=== PATIENT | female | born 1955 | race Caucasian/White ===

== ENCOUNTER 2021-11-17 12:45 | Outpatient (CLI) | payer MEDICARE, BC, SELFPAY ==
--- NOTE | 2021-11-17 13:00 | CRLHL7_ITS ---
For Patients: As a result of the Century Cures Act, medical imaging exams and procedure reports are released immediately into your electronic medical record. You may view this report before your referring provider. If you have questions, please contact your health care provider. BILATERAL SCREENING MAMMOGRAM WITH COMPUTER-AIDED DETECTION AND TOMOSYNTHESIS TECHNIQUE: CC and MLO views were obtained. These mammographic images have been obtained using full-field digital technique. These mammographic images were interpreted with the benefit of computer-aided detection. Breast Tomosynthesis was used in this interpretation. COMPARISON FILM: 09/19/20, 09/18/19, 07/29/18. FINDINGS: There are scattered areas of fibroglandular density IMPRESSION: There is no radiographic evidence for malignancy. ASSESSMENT: BI-RADS Category 1: Negative RECOMMENDATION: Routine screening mammogram in 1 year. A lay language report of this examination will be provided to the patient. Scooter Mcnair M.D. Diagnostic Radiologist [email or web address] ELSIE/Dictated by: Scooter Mcnair MD @ 11/21/2021 10:51:00 AM (Electronically Signed)
== END 2021-11-17 12:46 | disposition home or self-care (01) ==
LOC: MAMMO 12:51
PROVIDERS: PCP Family Medicine; Visit Provider Family Medicine
DX: Z12.31 Encounter for screening mammogram for malignant neoplasm of breast (principal)
CPT/HCPCS: 77063; 77067

== ENCOUNTER 2022-04-17 15:50 | Outpatient (CLI) | payer OTHER, SELFPAY ==
--- NOTE | 2022-04-17 16:00 | CRLHL7_ITS ---
For Patients: As a result of the Century Cures Act, medical imaging exams and procedure reports are released immediately into your electronic medical record. You may view this report before your referring provider. If you have questions, please contact your health care provider. INDICATION: Right calf swelling after travel. COMPARISON: None. TECHNIQUE: A compression venous ultrasound exam was performed of the right lower extremity using diaz-scale imaging, color Doppler and spectral Doppler analysis. FINDINGS: Sonographic imaging of the right lower extremity demonstrates normal compressibility and color Doppler venous blood flow within the common femoral vein, deep femoral vein, and the proximal greater saphenous vein. Within the thigh, the femoral vein is patent and compressible. At a lower level, the popliteal, peroneal, and posterior tibial veins also show normal compressibility and color Doppler venous blood flow. Limited imaging of the contralateral groin demonstrates a normal spectral waveform and color Doppler venous blood flow within the left common femoral vein. IMPRESSION: Negative for acute DVT in the right lower extremity. Dictated by Melanie Grewal MD @ 04/17/2022 8:20:44 PM (Electronically Signed)
== END 2022-04-17 15:51 | disposition home or self-care (01) ==
PROVIDERS: PCP Family Medicine; Visit Provider Family Medicine
DX: M79.89 Other specified soft tissue disorders (principal)
CPT/HCPCS: 93971

== ENCOUNTER 2022-10-02 13:05 | Outpatient (CLI) | payer OTHER, SELFPAY | END 2022-10-02 13:06 | disposition home or self-care (01) | LOC: NFLDREF 13:07 | PROVIDERS: PCP Family Medicine; Visit Provider Internal Medicine | DX: E55.9 Vitamin D deficiency, unspecified (principal); E78.5 Hyperlipidemia, unspecified; I10 Essential (primary) hypertension; E03.9 Hypothyroidism, unspecified; E66.9 Obesity, unspecified; E11.9 Type 2 diabetes mellitus without complications; E04.1 Nontoxic single thyroid nodule; R60.9 Edema, unspecified | CPT/HCPCS: 80048; 87086 ==

== ENCOUNTER 2022-11-06 13:40 | Outpatient (CLI) | payer OTHER, SELFPAY | END 2022-11-06 13:41 | disposition home or self-care (01) | LOC: NFLDREF 13:42 | PROVIDERS: PCP Family Medicine; Visit Provider Family Medicine | DX: I10 Essential (primary) hypertension (principal); R60.9 Edema, unspecified; E78.5 Hyperlipidemia, unspecified | CPT/HCPCS: 80048 ==

== ENCOUNTER 2022-12-05 07:36 | Outpatient (CLI) | payer OTHER, SELFPAY | END 2022-12-05 07:37 | disposition home or self-care (01) | LOC: NFLDREF 12-07 11:50 | PROVIDERS: PCP Family Medicine; Referring Provider Family Medicine; Visit Provider Family Medicine | DX: E55.9 Vitamin D deficiency, unspecified (principal) | CPT/HCPCS: 82306 ==

== ENCOUNTER 2022-12-10 07:45 | Outpatient (CLI) | payer OTHER, SELFPAY ==
--- NOTE | 2022-12-10 08:15 | CRLHL7_ITS ---
For Patients: As a result of the Cures Act, medical imaging exams and procedure reports are released immediately into your electronic medical record. You may view this report before your referring provider. If you have questions, please contact your health care provider. BILATERAL SCREENING MAMMOGRAM WITH COMPUTER-AIDED DETECTION AND TOMOSYNTHESIS TECHNIQUE: CC and MLO views were obtained. These mammographic images have been obtained using full-field digital technique. These mammographic images were interpreted with the benefit of computer-aided detection. Breast tomosynthesis was used in this interpretation. COMPARISON FILM: 11/17/21, 09/19/20, 07/07/20. FINDINGS: There are scattered areas of fibroglandular density. IMPRESSION: There is no radiographic evidence for malignancy. ASSESSMENT: BI-RADS Category 1: Negative RECOMMENDATION: Routine screening mammogram in 1 year. A lay language report of this examination will be provided to the patient. SCOOTER BUCHANAN M.D. Diagnostic Radiologist [email or web address] NINA/m[place] Transcribed: 12/10/2022, 2:[address]/Dictated by: Scooter Buchanan MD @ 12/10/2022 10:10:00 AM (Electronically Signed)
== END 2022-12-10 07:46 | disposition home or self-care (01) ==
LOC: MAMMO 07:45
PROVIDERS: PCP Family Medicine; Visit Provider Family Medicine
DX: Z12.31 Encounter for screening mammogram for malignant neoplasm of breast (principal)
CPT/HCPCS: 77063; 77067

== ENCOUNTER 2023-06-10 08:15 | Outpatient (RCR) | payer MEDICARE, OTHER, SELFPAY ==
--- NOTE | 2022-12-25 17:55 | PT.OPEX ---
PT [place] Outpatient Eval PT [facility] Outpatient Eval Start: 12/24/22 13:19 Freq: Status: Active Protocol: Document 12/25/22 12:59 MLS (Rec: 12/25/22 17:53 MLS [id number]) E-signed By Jocelyne Daley DPT Physical Therapy Outpatient Evaluation Insurance Information Recert Due Date 03/24/23 Insurance Name Medicare B Insurance Information/Comments [employer] Medical Diagnosis M76.61 M76.62 Achilles tendonitis of both lower extremities Treating Diagnosis Achilles tendonitis, right worse than left Referring MD Yanick Escudero MD Subjective Subjective Patient is a 67 year old female who presents to physical therapy with signs and symptoms consistent with achilles tendonitis in both feet, worse on right foot. She has had problems for a couple of years. She states that it originally started after a holiday where she had been very busy and making several trips up and down her stairs. According to the patient, about two years ago she had a procedure on the left side where they scraped off the calcium. She states that at the time, it really helped to decrease her pain. She reports recently that she saw a mortgage or loan underwriter who prescribed a steroid for her. Unfortunately, she got severe swelling in both ankles from the medicine. She was also on a cruise at the time. She reports that she did have xrays recently, and they did not show any calcium buildup at this time. She reports that she uses the pool 3x/week at [address] [place] [address], and that does not aggravate her ankles. She states that aggravating factors include: walking, moving around home, and cleaning. She states that alleviating factors include: Sitting and not moving or sitting in her recliner with her feet up. Significant past medical history includes diabetes, sarcodosis (will see rehabilitation center manager again soon) controlled not on any meds. She does not have any complaints of numbness and tingling into her feet. she does have some right heel pain at times. She does have stairs in her home to go into the basement. Patient would like to achieve less pain so she can walk through her physical therapy sessions. Pain Comments Today: 6-7/10 on a 0-10 pain scale with 10 = extreme pain At its worst: 9/10 At its best: 1-2/10 Current Work Status Retired Occupation work 2 mornings a week at [address] [place] [address] Preferred Name Melanie Precautions Weight Bearing Status Full Weight Bearing Objective Other/Pertinent Objective FOOT ALIGNMENT/GAIT Antalgic gait pattern secondary to pain SWELLING Severe swelling noted to bilateral ankles, right slightly more than left today Right center medial malleolus to lateral malleolus 11.5 inches, left side 11.25 inches around ANKLE ROM PF: R 30 L 30 DF: R 20 L 20 INversion: R 15 L 15 EVersion: R 10 L 10 LE MMT Hip flexion: R 5/5 L 5/5 Hip Extension: R 5/5 L 5/5 Hip abduction: R 5/5 L 5/5 knee extension: R 5/5 L 5/5 Knee Flexion: R 5/5 L 5/5 Dorsiflexion/heel walk: R 5/5 L 5/5 Plantarflexion/toe walk:R 5/5 L 5/5 severe pain INV: R 5/5 L 5/5 KEON: R 5/5 L 5/5 Great Toe Extension: R 5/5 L 5 /5 JOINT MOBILITY/PALPATION Severe tenderness noted to bilateral achilles tendons, gastroc and soleus muscles OTHER: SLS (single leg stance): 5 seconds, no increase in pain TX: Access Code: [email or web address] URL: [email or web address] Date: 12/25/2022 Prepared by: Jocelyne Daley Exercises - Seated Ankle Alphabet - 1 x daily - 7 x weekly - 3 sets - 10 reps - Seated Ankle Circles - 1 x daily - 7 x weekly - 3 sets - 10 reps - Supine Ankle Pumps - 1 x daily - 7 x weekly - 3 sets - 10 reps Functional Test Performed & Score 48/80 A score increase of 6 points shows a significant improvement in lower extremity function. Assessment Assessment/Impression Pt is a 67 year old female who presents with concerns of bilateral achilles tendonitis, worseo n the right. Signs and symptoms likely indicating / consistent with severe swelling and difficulty walking. Patient also has notable objective findings including limited ROM, low LEFS score and tenderness to palpation also likely contributing to the problem. Patient is a good candidate for skilled therapy to target deficits described above. Skilled PT intervention is necessary for use of therapeutic exercise manual therapy, neuromuscular re- education, gait training, and therapeutic activity. Functional impairments include difficulty with: walking, cleaning and doing ADLs . See appropriate sections of PT eval for complete list of goals and POC. D/C plan and criteria is for pt to achieve the goals as listed below or until max rehab potential is met. Pt was agreeable with plan of care and goals established Plan of Care Rehabilitation Potential Good Physical Therapy Goals STG: Patient is able to sleep without waking more than one time due to pain in a 6-8 hour time frame. Pt will demonstrate independence in performance of home exercise program with the use of video and/or handouts in order to optimize functional mobility and reduce risk for re-injury. Patient will report pain levels <2/10 with all activities in order to improve functional mobility at home, work and during functional leisure activities LTG: Patient will be able to walk up to one mile without pain. Patient will be able to drive for 60 minutes with no greater than 2/10 pain in order to travel comfortably. Pt will exhibit 9 pt improvement in LEFS Outcome measure to demonstrate functional improvement and progress towards goals. Pt will be able to ascend/ descend 1 flight of stairs in order to perform ADLs pain free. Coordination/Communication With Referral Source Treatment Plan/Direct Interventions Gait Training,Manual Therapy, Neuromuscular Re-ed, Therapeutic Activities, Therapeutic Exercises Patient Will Be Discharged From Therapy Independently Progressing Evaluation Billing Untimed Code Treatment Minutes 30 Complexity Low Certification Information Physician Comment/Change : Physician NPI Number #
== END 2023-06-12 09:20 | disposition home or self-care (01) ==
PROVIDERS: PCP Family Medicine; Visit Provider Family Medicine
DX: M76.61 Achilles tendinitis, right leg (principal); M76.62 Achilles tendinitis, left leg; Z51.89 Encounter for other specified aftercare
CPT/HCPCS: 97035; 97110; 97140; 97161

== ENCOUNTER 2023-06-18 06:42 | Outpatient (CLI) | payer MEDICARE, SELFPAY ==
[2023-06-18 07:14] VITALS: BP 160/79; PULSE 82; RESP 16; TEMP 36.7; O2SAT 93
== END 2023-06-18 08:06 | disposition home or self-care (01) ==
PROVIDERS: PCP Family Medicine; Visit Provider Family Medicine
DX: M76.61 Achilles tendinitis, right leg (principal); M67.88 Other specified disorders of synovium and tendon, other site
CPT/HCPCS: 27605; 76942; J0665

== ENCOUNTER 2023-07-31 08:57 | Outpatient (CLI) | payer MEDICARE, SELFPAY ==
--- OUTSIDE RECORDS SUMMARY | 2023-08-01 07:23 | XMS_ITS | Clinical Summary ---
Author Name Unknown Organization [facility] Address [address] [place] [address] Care Team Providers Care Riveter Portable Machine Name Role Phone Needs Pcp, Assignment Primary Care Provider [phone] Source Comments You are receiving this document as you are listed as the primary care provider,follow-up provider, or the patient has been referred to you for consultation.This is in compliance with the Medicare and[facility] E[facility] Incentive Program,which states Providers who transition their patient to another setting of careor provider of care or refers their patient to another provider of care shouldprovide summary care record for each transition of care or referral. [employer] Allergies Active Allergy Reactions Criticality Noted Date Comments Erythromycin Nausea And Vomiting,Gastrointestinal,Nausea 07/28/2006 Medications Medication Sig Dispensed Refills Start Date End Date Status lancets (ACCU-CHEK FASTCLIX)Indications :Controlled type 1 diabetes mellitus with diabetic neuropathy (HRC) Use 1 Each to test five times a day. 500 Each 2 07/05/2020 Active ACCU-CHEK GUIDE test stripIndications:Con trolled type 1 diabetes mellitus with diabetic neuropathy (HRC) Use to test 4-6 times daily 500 Strip 3 08/25/2020 Active enalapril (VASOTEC) 20 MG tabletIndications:Co ntrolled type 1 diabetes mellitus with diabetic neuropathy (HRC),Left thyroid nodule (HRC),Postsurgical hypothyroidism,Essen tial (primary) hypertension (HRC),Dyslipidemia (HRC) Take 1 Tablet (20 mg) by mouth daily. 90 Tablet 2 05/01/2021 Active propranolol (INDERALLA) 60 MG 24 hour release capsule Take 1 Capsule (60 mg) by mouth. 06/15/2021 Active Insulin Disposable Pump (OMNIPOD 5 G6 INTRO, GEN 5,) KITIndications:Contr olled type 1 diabetes mellitus with diabetic neuropathy (HRC) Change pod every 72 or 48 hours, use as directed. 1 Kit 10/26/2021 Active Continuous Blood Gluc Sql Developer Dba (DEXCOM G6 HISTORIC INTERPRETER) DEVIIndications:Cont rolled type 1 diabetes mellitus with diabetic neuropathy (HRC) Use daily to monitor blood sugars. Pharmacy dispense brand based on insurance. 1 Each 11/30/2021 Active cholecalciferol (VITAMIN D3) 25 MCG (1000 UT) tablet Take 1 Tablet (1,000 Units) by mouth two times a day. Active levothyroxine (SYNTHROID) 50 MCG tabletIndications:Po stsurgical hypothyroidism Take 1 tab daily Sat-Sat,none on Sat, and none on Sundays 90 Tablet 2 03/20/2023 Active insulin aspart (NOVOLOG) 100 UNIT/ML injection (vial)Indications:Co ntrolled type 1 diabetes mellitus with diabetic neuropathy (HRC) Inject 45-60 units daily via pump 60 mL 2 03/20/2023 Active lisinopril-hydrochlo rothiazide (PRINZIDE) 10-12.5 MG tabletIndications:Es sential (primary) hypertension (HRC) Take 1 Tablet by mouth daily. 90 Tablet 2 03/20/2023 5 Active simvastatin (ZOCOR) 40 MG tabletIndications:Co ntrolled type 1 diabetes mellitus with diabetic neuropathy (HRC),Left thyroid nodule (HRC),Postsurgical hypothyroidism,Essen tial (primary) hypertension (HRC),Dyslipidemia (HRC) Take 1 Tablet (40 mg) by mouth daily at bedtime. 90 Tablet 2 03/20/2023 5 Active Continuous Blood Gluc Transmit (DEXCOM G6 TRANSMITTER)Indicati ons:Controlled type 1 diabetes mellitus with diabetic neuropathy (HRC) Inject 1 Each subcutaneously every 3 months. Use with sensor 1 Each 1 04/23/2023 Active Continuous Blood Gluc Sensor (DEXCOM G6 SENSOR)Indications:C ontrolled type 1 diabetes mellitus with diabetic neuropathy (HRC) Use 1 Device to test every 10 days. Use with transmitter and diesel trailer mechanic 9 Each 1 04/23/2023 Active Insulin Disposable Pump (OMNIPOD 5 G6 POD, GEN 5,)Indications:Contr olled type 1 diabetes mellitus with diabetic neuropathy (HRC) Change pod every 72 or 48 hours, use as directed. 45 Each 04/23/2023 Active Active Problems Problem Noted Date Diagnosed Date Left thyroid nodule 05/11/2016 Type 1 diabetes mellitus wit h neurological manifestations, controlled 11/23/2015 Postsurgical hypothyroidism 11/23/2015 Essential (primary) hypertension 11/23/2015 Dyslipidemia 11/23/2015 Encounters Date Type Department Care Team Description 07/22/2023 Telephone [facility] [address] [place] [address] Emily Worthington MBBS Follow-up 07/16/2023 9:00 AM CDT Office Visit [facility] [address] [place] [address] Emily Worthington MBBS Controlled type 1 diabetes mellitus with diabetic neuropathy (HRC) (Primary Dx); Left thyroid nodule (HRC); Postsurgical hypothyroidism; Essential (primary) hypertension (HRC); Dyslipidemia (HRC) 07/16/2023 Telephone [facility] [address] [place], [place] [address] Emily Worthington MBBS Lab Orders Needed from Last 3 Months Immunizations Name Administration Dates Next Due Adult RSV Abrysvo 11/16/2022 Flu Vac (3+ yrs) 01/02/2012,01/05/2011, 4 Fluzone Qiv Multidose Vial 0 .25 (6-35 Mos) 12/24/2018,12/05/2016 [id number] 03/30/2009 Influenza (Flucelvax), Prese rv Free QIV 01/17/2016 Influenza IIV4 (Quadrivalent ) 0.5mL ([id number]) 12/20/2020,12/07/2019,12/31/2012,2009 Influenza IIV4 (Quadrivalent ) Fluad, 65+ Yrs 01/06/2023,11/16/2022 Influenza IIV4 (Quadrivalent ) Fluzone, 65+ Yrs 12/26/2021 MMR 04/18/1993 Moderna 12+ 01/06/2023 Moderna Bivalent 12+ 09/27/2022 Moderna Monovalent 12+ 07/09/2021 PCV13 (Prevnar) 11/23/2015 PCV20 (Fjzkwst74) 01/20/2022 PPSV23 (Pneumovax) 02/15/2005 Pfizer Bivalent 12+ 12/26/2021 Pfizer Monovalent 12+ Purple Top 12/28/2020,04/0 08/2020,05/31/2020 Pneumococcal Conjugate, Unsp ecified Formulation 01/21/2022 Td 06/26/2005 Tdap 11/23/2015 Zoster RZV (Shingrix) 12/11/2018, 019,06/19/2018,2018 Social History Tobacco Use Types Packs/Day Years Used Date Smoking Tobacco: Former Cigarettes 0.5 32 0 03/18/1975 - 03/18/2007 Smokeless Tobacco: Never Alcohol Use Standard Drinks/Week Comments Yes 0 (1 standard drink = 0.6 oz pure alcohol) Occasionally for special occasions Sex and Gender Information Value Date Recorded Sex Assigned at Not on file Gender Identity Not on file Sexual Orientation Not on file Last Filed Vital Signs Vital Sign Reading Time Taken Comments Blood Pressure 128/68 07/16/2023 9:30 AM CDT Pulse 88 07/16/2023 9:08 AM CDT Temperature - - Respiratory Rate 16 02/23/2022 11:2 3 AM CASH PROCESSING SPECIALIST Oxygen Saturation 96% 03/20/2023 8:17 AM CASH PROCESSING SPECIALIST Inhaled Oxygen Concentration - - Weight 114.2 kg (251 lb 11.2 oz) 07/16/2023 9:08 AM CDT Height 167.6 cm (5' 6) 07/16/2023 9:08 AM CDT Body Mass Index 40.63 07/16/2023 9:08 AM CDT Plan of Treatment Upcoming Encounters Date Type Department Care Team (Late st Contact Info) Description 10/09/2023 8:00 AM CDT [facility] [facility] [address] [place] [address] 10/09/2023 9:00 AM CDT [facility] Visit [facility] [address] [place] [address] [place] [address] Mame Canada MD [address] [place] [phone] 12/31/2023 7:00 AM CDT Appointment [facility] [address] [place] [address] 12/31/2023 9:15 AM CDT Appointment [facility] [address] [place] [phone] Emily Worthington MBBS [address] [place], [place] [phone] Health Maintenance Due Date Last Done Comments Colon Cancer Screening Plan Due 1955 Diabetes: Eye Exam 1955 Diabetes: Foot Exam 1955 Hep C Screening (Preventive Services) 1955 Mammogram 08/24/2015 08/23/2014 Dexa 2021 Medicare Annual Wellness Visit 03/18/2023 COVID-19 Vaccine ( season) 2023 01/06/2023, 09/27/2022, 12/26/2021, Additional history exists Diabetes: HGBA1C 10/15/2023 07/16/2023, , 05/01/2022, Additional history exists Diabetes: Creatinine 01/03/2024 01/02/2023, 11/21/2021, 10/20/2021, Additional history exists Diabetes: Urine Microalbumin 01/03/2024 01/02/2023, 10/20/2021, 02/15/2021, Additional history exists DTaP/Tdap/Td (2 - Tdap) 11/22/2025 11/23/2015, 06/26 Diabetes: Lipid Panel 01/03/2028 01/02/2023 , 10/20/2021, 02/15/2021, Additional history exists Zoster/Shingles Completed 12/11/2018, 05/2018, 06/19/2018, Additional history exists Pneumococcal 65+ Yrs Completed 01/20/2022, 11/23/2015, 02/15/2005 Influenza Completed 01/06/2023, 03/2022, 12/26/2021, Additional history exists HepA Aged Out No longer eligi ble based on patient's age to complete this topic HepB Aged Out No longer eligi ble based on patient's age to complete this topic Hib Aged Out No longer eligi ble based on patient's age to complete this topic IPV (Polio) Aged Out No longer eligi ble based on patient's age to complete this topic MCV4 Aged Out No longer eligi ble based on patient's age to complete this topic Procedures Procedure Name Priority Date/Time Associated Diagnosis Comments HGB A1C Routine 07/16/2023 8:53 AM CDT Controlled type 1 diabetes mellitus with diabetic neuropathy (HRC) ALBUMIN/CREAT RATIO Routine 01/02/2023 9:00 AM CDT Controlled type 1 diabetes mellitus with diabetic neuropathy (HRC) Left thyroid nodule (HRC) Postsurgical hypothyroidism Essential (primary) hypertension (HRC) Dyslipidemia (HRC) BASIC METABOLIC PANEL Routine 01/02/2023 8:36 AM CDT Controlled type 1 diabetes mellitus with diabetic neuropathy (HRC) Left thyroid nodule (HRC) Postsurgical hypothyroidism Essential (primary) hypertension (HRC) Dyslipidemia (HRC) LIPID PANEL & DIRECT LDL (IF NEEDED) Routine 01/02/2023 8:36 AM CDT Controlled type 1 diabetes mellitus with diabetic neuropathy (HRC) Left thyroid nodule (HRC) Postsurgical hypothyroidism Essential (primary) hypertension (HRC) Dyslipidemia (HRC) RADEX FNGR MINIMUM 2 VIEWS 09/24/1995 12:00 AM CDT Finger Injury Nos Fx Phalanx, Hand Nos-Close from Last 3 Months or Most Recently Relevant to Health Maintenance Results * (ABNORMAL) HgbA1c - Collect in Clinic (07/16/2023 8:53 AM CDT) Hemoglobin A1C (Rapid) 6.6(H) <=5.6 % 07/16/2023 9:12 AM [facility] Performing Location Endo A BU 07/16/2023 9:12 AM [facility] Estimated Average Glucose (Calc) 143 < 117 mg/dL 07/16/2023 9:12 AM [facility] Comment:Estimated average gl ucose (eAG) converts A1c into glucose units (mg/dL) and estimates average glucose over the past approximately 3 months. The eAG reference interval (<117 mg/dL) corresponds to an A1c of <5.7%. Blood Capillary / Unknown 07/16/2023 8:53 AM CDT 07/16/2023 8:54 AM CDT [facility] - 07/16/2023 9:12 AM CDT For patients not previously diagnosed with diabetes: 5.7-6.4%: Increased risk for diabetes 6.5% and greater: Diagnostic for diabetes For patients diagnosed with diabetes: <8.0%: Goal of therapy for ages 18-75 Clinicians may recommend a higher or lower goal for specific individuals. The test method used for this Hemoglobin A1c result can experience interference from elevated hemoglobin and other hemoglobin variants. In patients with results that do not correlate clinically, contact the lab for further direction. Emily PEDROZA [facility] [address] [place] [address], [facility] * Albumin/Creatinine Ratio,Random Urine (01/02/2023 9:00 AM CDT) [facility] Albumin/Creati nine Ratio, Urine, Random 18 <30 mg/g 01/02/2023 9:56 AM [facility] Albumin, Urine, Random 24.2 mg/L 01/02/2023 9:56 AM [facility] Creatinine, Urine, Random 138 >20 mg/dL mg/dL 01/02/2023 9:56 AM [facility] Urine Non-blood Collection / Unknown 01/02/2023 9:00 AM CDT 01/02/2023 9:00 AM CDT Emily Worthington [facility] Performing Organization Address [facility]/ZIP Co de Phone Number [facility] [address] [place] [address], [facility] [phone] * Lipid Panel and Direct LDL (if needed) (01/02/2023 8:36 AM CDT) Cholesterol 150 0 - 199 mg/dL 01/02/2023 10:07 AM [facility] Triglyceride 73 <=149 mg/dL 01/02/2023 10:07 AM [facility] HDL Cholesterol 40 >=40 mg/dL 10:07 AM [facility] LDL, Calculated 95 <130 mg/dL 10:07 AM [facility] Non HDL Chol, Calculated 110 <=159 mg/dL 01/02/2023 10:07 AM [facility] Cholesterol/HDL Ratio 3.8 <=5.0 01/02/2023 10:07 AM [facility] Hours Fasting 3.0 8 - 12 Hours 01/02/2023 10:07 AM [facility] Blood Venipuncture / Unknown 01/02/2023 8:36 AM CDT 01/02/2023 8:36 AM CDT Emily Worthington [facility] Performing Organization Address [facility]/ZIP Co de Phone Number [facility] [address] [place] [address], [facility] [phone] * (ABNORMAL) BMP (01/02/2023 8:36 AM CDT) Sodium 138 136 - 145 mmol/L 01/02/2023 10:07 AM [facility] Potassium 4.5 3.5 - 5.1 mmol/L 01/02/2023 10:07 AM [facility] Chloride 104 98 - 109 mmol/L 01/02/2023 10:07 AM [facility] CO2 27 20 - 29 mmol/L 01/02/2023 10:07 AM [facility] Anion Gap 7 7 - 16 mmol/L 01/02/2023 10:07 AM [facility] Calcium 9.6 8.4 - 10.4 mg/dL 01/02/2023 10:07 AM [facility] BUN 23 7 - 26 mg/dL 01/02/2023 10:07 AM [facility] Creatinine 1.10(H) 0.55 - 1.02 mg/dL 01/02/2023 10:07 AM [facility] Glucose 254(H) 70 - 100 mg/dL 01/02/2023 10:07 AM [facility] Comment:The given reference range is for the fasting state. Non-fasting reference range for glucose is 70 - 180 mg/dL. GFR, Estimated 56(L) >60 mL/min/1.7 3m2 01/02/2023 10:07 AM [facility] Hours Fasting 3.0 8 - 12 Hours 01/02/2023 10:07 AM [facility] Blood Venipuncture / Unknown 01/02/2023 8:36 AM CDT 01/02/2023 8:36 AM [facility] Narrative [facility] - 01/02/2023 10:07 AM [facility] The National Kidney Disease Education Program suggests measuring Cystatin C in patients with eGFRcrea of 45 to 59 ml/min/1.73^2 who do not have other markers of kidney damage (i.e. elevated urine Albumin/Creatinine Ratio or a prior Cystatin C confirming the presence of chronic kidney disease). Emily [facility] [address] [place] [address], [facility] [phone] from Last 3 Months or Most Recently Relevant to Health Maintenance Care Teams Riveter Portable Machine Relationship Specialty Start Date End Date Needs Pcp, [place] [address] PCP - General 03/22/23
--- OUTSIDE RECORDS SUMMARY | 2023-08-01 07:23 | XMS_ITS | Encounter Summary ---
Author Name Unknown Organization [facility] Address [address] [place] [address] Care Team Providers Care Administration Internship Name Role Phone Needs Pcp, Assignment Primary Care Provider [phone] Reason for Visit * Reason Comments Refill Encounter Details Date Type Department Care Team (Late st Contact Info) Description 04/23/2023 Telephone [facility] [address] [facility] [place], [place] [phone] Lee Ann Worthington, [facility] [address] [place], [place] [phone] Refill Social History Tobacco Use Types Packs/Day Years [...] on file Sexual Orientation Not on file documented as of this encounter Nursing Notes * Hayley Isaacs, RN - 04/23/2023 1:51 PM CST Transferred to [facility] per pt request. Renewed medication per medication refill standing order. Requested Prescriptions Signed Prescriptions Disp Refills Continuous Blood Gluc Transmit (DEXCOM G6 TRANSMITTER) 1 Each 1 Sig: Inject 1 Each subcutaneously every 3 months. Use with sensor Authorizing Provider: LEE ANN WORTHINGTON Ordering User: HAYLEY ISAACS Continuous Blood Gluc Sensor (DEXCOM G6 SENSOR) 9 Each 1 Sig: Use 1 Device to test every 10 days. Use with transmitter and school bus dispatcher Authorizing Provider: LEE ANN WORTHINGTON Ordering User: HAYLEY ISAACS Insulin Disposable Pump (OMNIPOD 5 G6 POD, GEN 5,) 45 Each 1 Sig: Change pod every 72 or 48 hours, use as directed. Authorizing Provider: LEE ANN WORTHINGTON Ordering User: HAYLEY ISAACS ER/GUIDE documented in this encounter Plan of Treatment Upcoming Encounters Date Type Department Care Team (Late st Contact Info) Description 10/09/2023 8:00 AM CDT [facility]ointment [facility] [address] [facility] [address] [place] [address] 10/09/2023 9:00 AM CDT Office Visit [facility] Pulmonary Medicine [address] [place] [address] [place] [address] [place] [address] [address] [place] [address] 12/31/2023 7:00 AM CDT Appointment [facility] [address] [place] [address] 12/31/2023 9:15 AM CDT Appointment [facility] [address] [place] [phone] Lee Ann Worthington, YOVANY [address] [place], [place] [phone] documented as of this encounter Visit Diagnoses Diagnosis Controlled type 1 diabetes mellitus with diabetic neuropathy (HRC) documented in this encounter Care Teams Administration Internship Relationship Specialty Start Date End Date Needs Pcp, [place] [address] PCP - General 03/22/23 documented as of this encounter
--- OUTSIDE RECORDS SUMMARY | 2023-08-01 07:23 | XMS_ITS | Clinical Summary ---
Author Name Unknown Organization [facility] Address [place], [place] [address] Care Team Providers Care Check Processor Name Role Phone Beverly Alfonso MD Primary Care Provider + Allergies Active Allergy Reactions Criticality Noted Date Comments Erythromycin GI Upset,Nausea And Vomiting,Nausea Only 07/28/2006 Medications Medication Sig Dispensed Refills Start Date End Date Status lancets (ONE TOUCH DELICA) 33 gauge misc As directed 1 unit 4 times daily. 200 Each 12 3 Active blood sugar diagnostic (ONE TOUCH VERIO) strip Dispense test strips covered by the patient insurance. Test four times per day. 400 Each 12 4 Active simvastatin (ZOCOR) 40 mg tabletIndications:O ther and unspecified hyperlipidemia TAKE ONE TABLET BY MOUTH AT BEDTIME 90 tablet 1 5 Active levothyroxine (SYNTHROID) 75 mcg tabletIndications:U nspecified hypothyroidism Take 1 tablet by mouth once daily. 90 tablet 1 5 Active enalapril (VASOTEC) 10 mg tabletIndications:H ypertension TAKE ONE TABLET BY MOUTH DAILY 60 tablet 0 5 Active NOVOLOG 100 unit/mL injectionIndication s:Type 1 diabetes mellitus without complication (HC) USE 65 UNITS DAILY VIA AN INSULIN PUMP 20 mL 0 6 Active furosemide (LASIX) 40 mg tabletIndications:P eripheral edema Take 1 tablet by mouth every morning. 90 tablet 3 0 Active hydrocortisone (HYTONE) 2.5 % ointment 1 Active lisinopril-hydrochl orothiazide (10-12.5 mg) tablet (PRINZIDE; ZESTORETIC) 3 Active propranolol ER (INDERAL LA) 60 mg Cs24 Sustained-Release capsule 3 Active Dexcom G6 Transmitter for continuous blood glucose monitor (CGM) INJECT 1 EACH SUBCUTANEOUSLY EVERY 3 MONTHS. USE WITH SENSOR 3 Active Dexcom G6 Sensor for continuous blood glucose monitor (CGM) USE 1 DEVICE TO TEST EVERY 10 DAYS. USE WITH TRANSMITTER AND SHIPS OR BARGES LOADER 3 Active Dexcom G6 Plate Glass Grinder for continuous blood glucose monitor (CGM) INJECT 1 DEVICE SUBCUTANEOUSLY NEEDED. USE DIRECTED 2 Active diclofenac topical (VOLTAREN) 1 % gelIndications:Achi lles tendinosis Apply 4 g topically to affected area(s) four times daily. 100 g 2 4 Active durable medical equipment (DME)Indications:Ac hilles tendinosis,Achilles tendinitis of right lower extremity Airselect, Standard, Medium 01EF-M Length of Use: 99 months 4 Active polyethylene glycol-electrolyte (GOLYTELY) 236-22.74-6.74 -5.86 gram suspensionIndicatio ns:Benign neoplasm of colon, unspecified part of colon Drink 2 liters the day before colonoscopy and 2 liters 6 hours before colonoscopy appointment 4000 mL 4 Active polyethylene glycol-electrolyte (GOLYTELY) 236-22.74-6.74 -5.86 gram suspensionIndicatio ns:Encounter for screening colonoscopy Drink 3 quarts the day before the procedure and 1 quart 6 hours prior to procedure 4000 mL 9 07/16/19 24 Discontinu ed(*Med complete/R egimen complete/L evel of care change) Active Problems Problem Noted Date Diagnosed Date Adhesive capsulitis of left shoulder 02/23/2015 Tubular adenoma of colon 05/14/2014 Overview: Colonoscopy 07/2018 polyp, repeat in 5 years Hematuria 05/27/2012 Non-allergic rhinitis 08/19/2011 Vitamin D deficiency 07/23/2010 Benign neoplasm of colon 09/15/2009 Overview: Colonoscopy 09/2009 multiple polyps. Repeat 09/27 Colonoscopy 12/2013 normal repeat in 5 years Family history of malignant neoplasm of gastrointestinal tract 09/15/2009 Hypertension 12/26/2008 Other and unspecified hyperlipidemia 07/28/2006 Routine general medical exam ination at a health care facility 07/28/2006 Overview: DEXA - normal - 07/17 Mammogram - normal - 06/21 HYPOTHYROIDISM 07/25/2006 Unspecified asthma(493.90) 07/25/2006 Type 1 Diabetes A1C < 8 03/18/1987 Resolved Problems Problem Noted Date Diagnosed Date Resolved Date ALLERGIC RHINITIS 07/25/2006 08/19/2011 Encounters Date Type Department Care Team Description 07/15/2023 Telephone [facility] [address] [place] [address] Garrte Cottrell MD Screening 06/21/2023 11:40 AM CDT Office Visit [facility] [address] [place] [address] Yanick Escudero MD Musculoskeletal Problem (Follow up right achilles, Tenex procedure 06/18/23. Steri strip fell off and wound is open.) 06/21/2023 Travel 06/21/2023 Nurse Triage [facility] [address] [facility] [place] [address] Yanick Escudero MD Drainage From Incision (Steri strip came off and small opening of incision) 06/21/2023 Telephone [facility] [address] [place] [address] Yanick Escudero MD Error-please disregard 06/18/2023 7:15 AM CDT Procedure Only [facility] at [facility] [address] [place] [address] Yanick Escudero MD Procedure (Right achilles Tenex procedure) from Last 3 Months Immunizations Name Administration Dates Next Due Influenza, IIV3 (Age >=3 years) 12/31/2011,01/03 MMR 04/18/1993 Pneumococcal Poly,23-Valent (Pneumovax) 02/16/20 05 Td (Age >=7 Years) 06/26/2005 Family History Medical History Relation Name Comments Cancer-breast Maternal Aunt Cancer Maternal Grandmother Pancrea tic Cancer-breast Maternal Uncle Cancer-colon Maternal Uncle Relation Name Status Comments Brother Alive X2 Daughter Alive Father Maternal Aunt Maternal Grandfather Maternal Grandmother Maternal Uncle Mother Alive Paternal Grandfather Paternal Grandmother Son Alive Social History Tobacco Use Types Packs/Day Years Used Date Smoking Tobacco: Former Cigarettes 0.5 37 0 11/17/1971 - 11/16/2008 Smokeless Tobacco: Never Tobacco Cessation:Counseling Given: Yes Alcohol Use Standard Drinks/Week Comments No 0 (1 standard drink = 0.6 oz pur e alcohol) Social Connections Answer Date Recorded Frequency of Communication with Friends and Fami ly Not on file 12/20/2022 Financial Resource Strain Answer Date R ecorded Difficulty of Paying Living Expenses Not on file 03/18/2021 Difficulty of Paying Living Expenses Not on file 03/18/2021 Sex and Gender Information Value Date Recorded Sex Assigned at Not on file Gender Identity Not on file Sexual Orientation Not on file Obstetrics History Last Filed Vital Signs Vital Sign Reading Time Taken Comments Blood Pressure 124/84 06/21/2023 11:43 AM CDT Pulse 75 06/21/2023 11:43 AM CDT Temperature 36.4 ??C (97.6 ??F) 06/21/2023 11:43 AM C DT Respiratory Rate 20 07/09/2014 3:59 PM CDT Oxygen Saturation 96% 06/21/2023 11:43 AM CDT Inhaled Oxygen Concentration - - Weight 116.3 kg (256 lb 8 oz) 03/28/2023 3:30 PM FIELD ADJUSTER shoes on Height 167.6 cm (5' 5.98) 11/30/2019 2:09 PM CD T Body Mass Index 41.42 11/30/2019 2:09 PM CDT Plan of Treatment Upcoming Encounters Date Type Department Care Team (Late st Contact Info) Description 08/29/2023 7:30 AM CDT Office Visit [facility] [address] [place] [address] Garret Cottrell MD [address] [place] [address] Health Maintenance Due Date Last Done Comments Tdap 12/15/1967 Depression screening for age 12+ 1968 Hepatitis C screening for ag e 18-79 1974 Pneumococcal series for age 65+ (2 of 2 - PCV) 02/15/2006 02/15/2005 Zoster (shingles) series for age 50+ (1 of 2) 2006 Tetanus booster 06/27/2015 06/26/2005 Mammogram for age 45-75 08/24/2015 08/24/19 15, 04/11/2012, 02/07/2011, Additional history exists Lipids for age 45-75 11/13/2018 11/13/2013, 10/07/2012, 02/25/2012, Additional history exists BMI (ht and wt on same day) for age 18+ 11/29/2020 11/30/2019 DEXA/DXA scan for age 65+ 2021 Medicare Wellness for age 65+ 2021 Colonoscopy through age 75 08/14/202308/13, 08/13/2018, 01/08/2014, Additional history exists Influenza for age 65+ 11/17/2023 12/31/2011, 011 COVID-19 vaccine series Completed 01/07/20, 09/27/2022, 12/26/2021, Additional history exists Procedures Procedure Name Priority Date/Time Associated Diagnosis Comments COLONOSCOPY 08/13/2018 8:02 AM CDT XR MAMMO BILAT SCREEN FFDM (IA) Routine 08/23/2014 8:22 AM CDT Other screening mammogram LIPID PANEL W REFLEX MEASURED LDL Routine 11/13/2013 10:12 AM CDT Type 1 Diabetes A1C < 8 from Last 3 Months or Most Recently Relevant to Health Maintenance Results * COLONOSCOPY (08/13/2018 8:02 AM CDT) 08/13/2018 8:02 AM CDT Narrative Transcriptions Garret Cottrell MD - 08/13/2018 8:29 AM CDT Patient Name: Melanie Nielsen Procedure Date: 08/13/2018 Gender: Female Date of : 1955 Admit Type: Outpatient Procedure: Colonoscopy Proceduralist: Garret Cottrell MD , Lianna Glez (Nurse) Indications/Pre-Op Diagnosis: Surveillance: Personal history ofadenomatous polyps on last colonoscopy 5 years ago, Last colonoscopy: July 2013 Medications: Fentanyl 100 micrograms IV, Midazolam 2 mgIV, The level of sedation administered wasmoderate Procedure Description: The patient had risks, benefits and alternatives explained to andgave informed consent. The patient had a stable cardiopulmonary status and judged an adequate candidate for conscious sedation. The [id number] was passed through the anus and advanced tothe cecum, identified by appendiceal orifice and ileocecal valve. The colonoscopy was performed without difficulty. The patient toleratedthe procedure well. The quality of the bowel preparation was good. The ileocecal valve, appendiceal orifice, and rectum were photographed. Complications: No immediate complications. Estimated Blood Loss & Specimen: Estimated blood loss: none. Specimen collected - Yes and sent to Laboratory Findings: The perianal and digital rectal examinations were normal. A 3 mm polyp was found in the descending colon. The polyp wassessile. The polyp was removed with a cold snare. Resection and retrieval were complete. The exam was otherwise without abnormality on direct and retroflexion views. Impressions/Post-Op Diagnosis: - One 3 mm polyp in the descending colon, removed with a cold snare. Resected and retrieved. - The examination was otherwise normal on direct and retroflexionviews. Recommendation: - Patient has a contact number available for emergencies. The signsand symptoms of potential delayed complications were discussed with the patient. Return to normal activities tomorrow. Written discharge instructions were provided to the patient. - Resume previous diet. - Continue present medications. - Await pathology results. - Repeat colonoscopy in 5 years for surveillance. Moderate Sedation: Moderate (conscious) sedation was administered by the endoscopy nurse and supervised by the endoscopist. The following parameters were monitored: oxygen saturation, heart rate, respiratory rate, blood pressure, adequacy of pulmonary ventilation and reponse to care. Please refer to the [facility] medical record flowsheets and nursing notes for moderate sedation details. Total physician intraservice time was 15 minutes. Garret Cottrell MD 08/13/2018 8:29:52 AM This report has been signed electronically. Note Initiated On: 08/13/2018 8:02 AM Procedure Code(s): --- Professional --- 24708, Colonoscopy, flexible; with removalof tumor(s), polyp(s), or other lesion(s) bysnare technique Diagnosis Code(s): --- Professional --- Z86.010, Personal history of colonicpolyps D12.4, Benign neoplasm of descending colon CPT copyright 2017 [employer]. All rights reserved. The codes documented in this report are preliminary and upon tissue recovery technician reviewmay be revised to meet current compliance requirements. Scope In: 8:10:10 AM Scope Withdrawal Time 0 hours 9 minutes 38 seconds Scope Out: 8:23:27 AM Garret Cottrell MD PROCEDURE ORD * XR MAMMO BILAT SCREEN FFDM (08/23/2014 8:22 AM CDT) Anatomical Region Laterality Modality BREASTS, Breast Left, Breast Right Bilateral Mammography Impressions 08/23/2014 12:23 PM CDT ??There is no radiographic evidence for malignancy. ??Recommend annual mammograms. A lay language report of this examination will be provided to the patient. MAMMOGRAM ASSESSMENT: ??ACR 2 Benign Narrative 08/23/2014 12:23 PM CDT XR MAMMO BILAT SCREEN FFDM [G0202.0] CLINICAL HISTORY: ??This is an asymptomatic 58 y.o. patient. INDICATION FOR EXAM: Mammogram Screening. TECHNIQUE: CC & MLO views were obtained. ??This digital study was evaluated with the assistance of Computer-Aided Detection. COMPARISON FILMS: Yes 04/11/12 [facility] 02/07/11 [facility] FINDINGS: ??Mammographically, the breast tissue is almost entirely fat. ??No suspicious masses or microcalcifications. ??Benign appearing calcifications within both breasts and Intramammary lymph node within right breast. Procedure Note Cong Aranda, - 08/23/2014 XR MAMMO BILAT SCREEN FFDM [G0202.0] CLINICAL HISTORY: This is an asymptomatic 58 y.o. patient. INDICATION FOR EXAM: Mammogram Screening. TECHNIQUE: CC & MLO views were obtained. This digital study was evaluatedwith the assistance of Computer-Aided Detection. COMPARISON FILMS: Yes 04/11/12 [facility] 02/07/11 [facility] FINDINGS: Mammographically, the breast tissue is almost entirely fat. Nosuspicious masses or microcalcifications. Benign appearing calcificationswithin both breasts and Intramammary lymph node within right breast. IMPRESSION: There is no radiographic evidence for malignancy. Recommendannual mammograms. A lay language report of this examination will be provided to the patient. MAMMOGRAM ASSESSMENT: ACR 2 Benign Scooter Delong MD MAMMO * LIPID PANEL W REFLEX MEASURED LDL (11/13/2013 10:12 AM CDT) CHOLESTEROL,TOTAL 145 100 - 199 mg/dL 11/13/2013 10:57 AM CDT [facility] TRIGLYCERIDES 68 <150 mg/dL 11/13/2013 10:57 AM CDT [facility] HDL CHOLESTEROL 42 >40 mg/dL 4 10:57 AM CDT [facility] NON-HDL CHOLESTEROL 103 <145 mg/dl 11/13/2013 10:57 AM CDT [facility] CHOL/HDL RATIO 3.45 <4.50 11/13/2013 10:57 AM CDT [facility] LDL CHOLESTEROL 89 <=130 mg/dL 11/13/2013 10:57 AM CDT [facility] PATIENT STATUS FASTING 11/13/2013 10:57 AM CDT [facility] Blood specimen (specimen) BLOOD SPECIMEN / Unknown Venipuncture / Unknown 11/13/2013 10:12 AM CDT 11/13/2013 10:12 AM CDT Scooter Delong MD CHEMISTRY [facility] [address] [place] [address], from Last 3 Months or Most Recently Relevant to Health Maintenance Advance Directives * Full Code (Latest Code Status on File) Date Activated Date Inactivated Comments 03/14/2010 7:15 AM 03/14/2010 1:06 PM * Full Code Date Activated Date Inactivated Comments 03/06/2010 1:01 PM 03/06/2010 10:21 PM * Full Code Date Activated Date Inactivated Comments 11/24/2009 12:33 PM 11/25/2009 2:26 AM Care Teams Check Processor Relationship Specialty Start Date End Date Beverly Alfonso MD [address] [place] [address] PCP - General Family Practice 08/13/18
--- OUTSIDE RECORDS SUMMARY | 2023-08-01 07:23 | XMS_ITS | Encounter Summary ---
Author Name Unknown Organization [facility] Address [address], [place] [address] Care Team Providers Care Timber Management Technician Name Role Phone Needs Pcp, Assignment Primary Care Provider [phone]- [phone] Reason for Visit * Reason Comments Diabetes Encounter Details Date Type Department Care Team (Late st Contact Info) Description 07/16/2023 9:00 AM CDT Office Visit [facility] [address] [place] [address] Emily Worthington, YOVANY [address] [place], [place] [address] Controlled type 1 diabetes mellitus with diabetic neuropathy (HRC) (Primary Dx); Left thyroid nodule (HRC); Postsurgical hypothyroidism; Essential (primary) hypertension (HRC); Dyslipidemia (HRC) Social History Tobacco Use Types Packs/Day Years [...] on file documented as of this encounter Last Filed Vital Signs Vital Sign Reading Time Taken Comments Blood Pressure 128/68 07/16/2023 9:30 AM CDT Pulse 88 07/16/2023 9:08 AM CDT Temperature - - Respiratory Rate - - Oxygen Saturation - - Inhaled Oxygen Concentration - - Weight 114.2 kg (251 lb 11.2 oz) 07/16/2023 9:08 AM CDT Height 167.6 cm (5' 6) 07/16/2023 9:08 AM CDT Body Mass Index 40.63 07/16/2023 9:08 AM CDT documented in this encounter Progress Notes * Rubi Moreno - 07/16/2023 9:00 AM CDT Images from the original note were not included. * Emily Worthington MBBS - 07/16/2023 9:00 AM CDT [facility] Department of Endocrinology, Diabetes and Metabolism Clinic Note Name: Melanie Nielsen Cc: Follow up for diabetes management. HPI: Melanie Nielsen is a 67 y.o. female #1 T1DM: Diagnosed at age of 31, using CSII for more than 20 years. Currently using the Omnipod 5, with dexcom with the following rates: Basal: midnight 0.8, 4 AM 1.2, 8 AM 1.3 and 10 PM 0.9. Bolus: midnight 5, SF 25, target 110, insulin time 3 hrs. CGM data for 2 weeks were reviewed, average glucose was 144, GMI 6.7. 2% >250, 14%181-250, 81% in range (70-180), 3 <70 and 1<54. The glucose tracing shows stable glucose levels with some hypoglycemia overnight A1C 6.6. Eye exam from 06/2023 was reported with no DM changes. No painful peripheral neuropathy. Creatinine from 12/2022 was 1.1, she had normal urine microalbumin then, she has 1 normal and 1 atrophic kidney, she takes lisinopril-HCTZ 10-12.5 mg daily. BP today was 128/68. She takes simvastatin 40 mg daily, LDL from 12/2022 was 95. She takes levothyroxine 50 mcg daily, 5 times weekly for postsurgical hypothyroidism (had thyroid nodule removal/lobectomy at age of 29). She had a thyroid US after a left thyroid nodule was found nena MRI done for neck pain, the US showed a left 28 x 19 x 18 mm nodule with calcifications. FNA Bx was benignX2. US from 01/02/2023 showed stable nodules. TSH from 12/2022 was 0.43. PE: Blood pressure (!) 147/64, pulse 88, height 5' 6 (1.676 m), weight 251 lb 11.2 oz (114.2 kg). Labs: Reviewed and summarized in the HPI. Assessment and Plan: Melanie Nielsen is a 67 y.o. female: #1 T1DM: Fairly controlled, has peripheral neuropathy, A1C 6.6. Counseled the patient about the importance of DM control. Counseled her about diet and activity. Change target overnight 10pm-6 AM to 130. Continue other rates the same. Continue CGM use. RTC in 6 months, update labs before visit. #2 HTN: continue lisinopril with HCTZ 10-12.5 mg daily. #3 Dyslipidemia: continue ASA Simvastatin. #4 Hypothyroidism: post surgical, continue levothyroxine 50 mcg daily, 5 times weekly. #5 Left thyroid nodule: FNA Bx was benignX2, US is stable from 01/01/2023 No further imaging is needed. Emily Worthington MD Pattern And Chain Maker documented in this encounter Plan of Treatment Upcoming Encounters Date Type Department Care Team (Late st Contact Info) Description 10/09/2023 8:00 AM CDT [facility]ment [facility] [address] [facility] [place] [address] 10/09/2023 9:00 AM CDT Office Visit [facility] [address] [place] [address] Mame Canada MD [address] [facility] [address] [place] [address] 12/31/2023 7:00 AM CDT Appointment [facility] [address] [place] [address] 12/31/2023 9:15 AM CDT Appointment [facility] [address] [place] [address] Emily Worthington MBBS [address] [place] [address] Scheduled Orders Name Type Priority Associated Diagnoses Orde r Schedule BMP Lab Routine Controlled type 1 diabetes mellitus with diabetic neuropathy (HRC) Left thyroid nodule (HRC) Postsurgical hypothyroidism Essential (primary) hypertension (HRC) Dyslipidemia (HRC) Expected: 12/16/2023, Expires: 04/16/2024 TSH Lab Routine Controlled type 1 diabetes mellitus with diabetic neuropathy (HRC) Left thyroid nodule (HRC) Postsurgical hypothyroidism Essential (primary) hypertension (HRC) Dyslipidemia (HRC) Expected: 12/16/2023, Expires: 04/16/2024 Albumin/Creatinine Ratio,Random Urine Lab Routine Controlled type 1 diabetes mellitus with diabetic neuropathy (HRC) Left thyroid nodule (HRC) Postsurgical hypothyroidism Essential (primary) hypertension (HRC) Dyslipidemia (HRC) Expected: 12/16/2023, Expires: 04/16/2024 Hgb A1C Lab Routine Controlled type 1 diabetes mellitus with diabetic neuropathy (HRC) Left thyroid nodule (HRC) Postsurgical hypothyroidism Essential (primary) hypertension (HRC) Dyslipidemia (HRC) Expected: 12/16/2023, Expires: 04/16/2024 Lipid Panel and Direct LDL (if needed) Lab Routine Controlled type 1 diabetes mellitus with diabetic neuropathy (HRC) Left thyroid nodule (HRC) Postsurgical hypothyroidism Essential (primary) hypertension (HRC) Dyslipidemia (HRC) Expected: 12/16/2023, Expires: 04/16/2024 documented as of this encounter Procedures Procedure Name Priority Date/Time Associated Diagnosis Comments HGB A1C Routine 07/16/2023 8:53 AM CDT Controlled type 1 diabetes mellitus with diabetic neuropathy (HRC) documented in this encounter Results * (ABNORMAL) HgbA1c - Collect in Clinic (07/16/2023 8:53 AM CDT) Hemoglobin A1C (Rapid) 6.6(H) <=5.6 % 07/16/2023 9:12 AM T [facility] Performing Location Endo [facility] 07/16/2023 9:12 AM CDT [facility] Estimated Average Glucose (Calc) 143 < 117 mg/dL 07/16/2023 9:12 AM CDT [facility] Comment:Estimated average gl ucose (eAG) converts A1c into glucose units (mg/dL) and estimates average glucose over the past approximately 3 months. The eAG reference interval (<117 mg/dL) corresponds to an A1c of <5.7%. Blood Capillary / Unknown 07/16/2023 8:53 AM CDT 07/16/2023 8:54 AM CDT Narrative [facility] - 07/16/2023 9:12 AM CDT For [...] contact the lab for further direction. Emily [facility] [address] [place] [address] documented in this encounter Visit Diagnoses Diagnosis Controlled type 1 diabetes mellitus with diabetic neuropathy (HRC)- Primary Left thyroid nodule (HRC) Nontoxic uninodular goiter Postsurgical hypothyroidism Essential (primary) hypertension (HRC) Unspecified essential hypertension Dyslipidemia (HRC) Other and unspecified hyperlipidemia documented in this encounter Care Teams Timber Management Technician Relationship Specialty Start Date End Date Needs Pcp, [place] [address] PCP - General 03/22/23 documented as of this encounter
--- OUTSIDE RECORDS SUMMARY | 2023-08-01 07:23 | XMS_ITS | Encounter Summary ---
Author Name Unknown Organization [facility] Address [address] [place] [address] Care Team Providers Care Box Chipper Name Role Phone Needs Pcp, Assignment Primary Care Provider [phone]- [phone] Reason for Visit * Reason Comments Lab Orders Needed Encounter Details Date Type Department Care Team (Late st Contact Info) Description 07/16/2023 Telephone [facility] [address] [place], [place] [address] Emily Worthington, YOVANY [address] [place], [place] [phone] Lab Orders Needed Social History Tobacco Use Types Packs/Day Years [...] as of this encounter Nursing Notes * Elizabeth Barron RN - 07/16/2023 9:58 AM CDT Provider entered lab order. * Rosio Pugh - 07/16/2023 8:08 AM CDT Patient on Lab Only Visit Schedule, no lab orders found in patient's chart. Please review and enter Future Lab Orders or notify the patient that lab work is not needed. Lab Only Visit scheduled for:TODAY 07/16/2023 @9:30AM documented in this encounter Plan of Treatment Upcoming Encounters Date Type Department Care Team (Late st Contact Info) Description 10/09/2023 8:00 AM CDT [facility]ointment [facility] [address] [place] [address] 10/09/2023 9:00 AM CDT Office Visit [facility] Medicine [address] [place] [address] Mame Canada MD [address] [facility] [address] [place] [address] 12/31/2023 7:00 AM CDT Appointment [facility] [address] [place] [phone] 12/31/2023 9:15 AM CDT Appointment [facility] [address] [place] [phone] Emily Worthington, MBBS [address] [place] [address] documented as of this encounter Visit Diagnoses Not on filedocumented in this encounter Care Teams Box Chipper Relationship Specialty Start Date End Date Needs Pcp, Assignment [place], [place] [address] PCP - General 03/22/23 documented as of this encounter
--- OUTSIDE RECORDS SUMMARY | 2023-08-01 07:23 | XMS_ITS | Encounter Summary ---
Author Name Unknown Organization [facility] Address [address] [place] [address] Care Team Providers Care Construction Plant Operator Name Role Phone Needs Pcp, Assignment Primary Care Provider [phone] Reason for Visit * Reason Comments Follow-up Encounter Details Date Type Department Care Team (Late st Contact Info) Description 07/22/2023 Telephone [place] [address] Endocrinology [address] [facility] [place], [place] [id number] Emily Worthington MBBS [address] [place], [place] [address] Follow-up Social History Tobacco Use Types Packs/Day Years [...] as of this encounter Nursing Notes * Freeman Benitez - 07/22/2023 12:57 PM CDT Spoke with patient. Schedule her with Dr. Rocha on Saturday 12/30 Future Appointments Date Time Provider Department Center 10/09/2023 8:00 AM PULM LAB1, [id number] PLB P3931 PLB PN 3931 10/09/2023 9:00 AM Mame Canada MD P3931 PUL PN 3931 12/31/2023 9:15 [place] [id number] * Hayley Isaacs, RN - 07/22/2023 8:58 AM CDT Pt LVM on nurse line asking for a call back to schedule a follow-up apt with Dr. Rocha for December. documented in this encounter Plan of Treatment Upcoming Encounters Date Type Department Care Team (Late st Contact Info) Description 10/09/2023 8:00 AM CDT Appointment [facility] Pulmonary Lab [address] [place] [address] 10/09/2023 9:00 AM CDT Office Visit [facility] Pulmonary Medicine [address] [place] [address] Mame Canada MD [address] [facility] [address] [place] [address] 12/31/2023 7:00 AM CDT Appointment [facility] [address] [place] [address] 12/31/2023 9:15 AM CDT Appointment [facility] [address] [place] [phone] Emily Worthington MBBS [address] [place], [place] [id number] documented as of this encounter Visit Diagnoses Not on filedocumented in this encounter Care Teams Construction Plant Operator Relationship Specialty Start Date End Date Needs Pcp, Assignment [place], [place] [address] PCP - General 03/22/23 documented as of this encounter
== END 2023-07-31 08:58 | disposition home or self-care (01) ==
LOC: NFLDREF 08-01 07:21
PROVIDERS: PCP Family Medicine; Referring Provider Family Medicine; Visit Provider Family Medicine
DX: E03.9 Hypothyroidism, unspecified (principal); G25.0 Essential tremor; I10 Essential (primary) hypertension; E10.9 Type 1 diabetes mellitus without complications; R60.0 Localized edema; Z90.5 Acquired absence of kidney
CPT/HCPCS: 80053; 82043; 82570; 84439; 84443

== ENCOUNTER 2023-08-14 13:49 | Outpatient (CLI) | payer MEDICARE, SELFPAY ==
--- OUTSIDE RECORDS SUMMARY | 2023-08-14 13:51 | XMS_ITS | Clinical Summary ---
Author Organization [facility] Address [address] [address] Phone Care Team Providers Care Offset Press Assistant Name Role Phone Unavailable Primary Care Provider Unavailabl e Medications Medication Sig Dispensed Refills Start Date End Date Status Continuous Glucose Screen Room Operator (Dexcom G6 Screen Room Operator) Device Use daily to monitor blood sugars. Pharmacy dispense brand based on insurance. 11/30/2021 Active diclofenac (Voltaren) 1 % Gel Apply 4 g topically four times a day. 03/28/2023 Active furosemide (Lasix) 40 MG tablet Take 40 mg by mouth every morning. 11/06/2019 Active lisinopril-hydroCH LOROthiazide (Prinzide, Zestoretic) 10-12.5 MG oral tablet Take 1 Tablet by mouth one time a day. 05/30/2022 03/19/2024 Active levothyroxine (Synthroid) 75 MCG tablet Take 75 mcg by mouth one time a day. 07/10/2014 Active propranolol LA (Inderal LA) 60 MG 24 hour capsule Take 60 mg by mouth one time a day. Active simvastatin (Zocor) 40 MG tablet Take 40 mg by mouth one time a day. 06/15/2014 03/19/2024 Active Multiple Vitamins-Minerals (MULTIVITAMIN ADULTS 50+ OR) Take by mouth one time a day. Multivitamin contains Vit D Active Insulin Disposable Pump (Omnipod 5 G6 Pods, Gen 5,) Misc Change pod every 72 or 48 hours, use as directed. 04/23/2023 Active Insulin Disposable Pump (Omnipod 5 G6 Intro, Gen 5,) Kit Change pod every 72 or 48 hours, use as directed. 10/26/2021 Active insulin aspart (NovoLOG) 100 UNIT/ML vial injection Inject 45-60 units daily via pump 03/23/2015 Active Active Problems Problem Noted Date Diagnosed Date Class 3 obesity 08/06/2023 Left thyroid nodule 05/11/2016 Dyslipidemia 11/23/2015 Vitamin D deficiency 07/23/2010 Tubular adenoma of colon 09/15/2009 Overview: Colonoscopy 09/2009 multiple polyps. Repeat 09/27 Colonoscopy 12/2013 normal repeat in 5 years Colonoscopy 07/2018 polyp, repeat in 5 years Essential (primary) hypertension 12/26/2008 Asthma 07/25/2006 Hypothyroidism 07/25/2006 Type 1 diabetes mellitus 03/18/1987 Encounters Date Type Department Care Team Description 08/06/2023 11:30 AM CDT Office Visit [facility] [address] [place] [address] Vasyl Colorado MD Essential (primary) hypertension (Primary Dx); Type 1 diabetes mellitus without complication (HCC); Dyslipidemia; Class 3 obesity (HCC) 08/06/2023 Travel from Last 3 Months Social History Tobacco Use Types Packs/Day Years Used Date Smoking Tobacco: Former Cigarettes Smokeless Tobacco: Never Tobacco Cessation:Counseling Given: Not Answered Sex and Gender Information Value Date Recorded Sex Assigned at 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 Gender Identity Not on file Sexual Orientation Not on file Job Start Date Occupation Industry Not on file Not on file Not on file Obstetrics History Last Filed Vital Signs Vital Sign Reading Time Taken Comments Blood Pressure 124/81 08/06/2023 11:26 AM CDT Pulse 86 08/06/2023 11:26 AM CDT Temperature - - Respiratory Rate - - Oxygen Saturation - - Inhaled Oxygen Concentration - - Weight 113.1 kg (249 lb 6.4 oz) 024 11:26 AM CDT Height 166.4 cm (5' 5.5) 08/06/2023 11 :26 AM CDT Body Mass Index 40.87 08/06/2023 11:26 AM CDT Plan of Treatment Upcoming Encounters Date Type Department Care Team (Late st Contact Info) Description 08/19/2023 9:30 AM CDT Appointment [facility] [address] [facility] [address] 08/20/2023 1:00 PM CDT Appointment [facility] [address] [facility] [place] [address] 09/10/2023 1:30 PM CDT Appointment [facility] [address] [facility] [place] [address] Vasyl Colorado MD [address] [place] [place] [address] 09/24/2023 1:00 PM CDT Appointment [facility] [address] [facility] [place] [address] 10/07/2023 1:00 PM CDT Appointment [facility] [address] [facility] [place] [address] Vasyl Colorado MD [address] [place] [address] Health Maintenance Due Date Last Done Comments CT Colonography 1956 Cologuard 1956 Colonoscopy 1956 Colorectal Cancer Screening 1956 FIT/FOBT 1956 MAMMO,SCREEN 1956 MEDICARE AWV 1956 Sigmoidoscopy 1956 Pneumococcal Vaccine: 65+ yrs (Standing Order) (1 of 2 - PCV) 1962 DIABETES LIPID PROFILE Q5 YEARS (Standing Order) 1974 DIABETIC EYE EXAM 1974 PERTUSSIS (Standing Order) 12/15/1975 TETANUS (Standing Order) 12/15/1975 Shingrix (Zoster recombinant) vaccine (Standing Order) (1 of 2) 2006 RSV Vaccination (60+ yrs) (Abrysvo/Arexvy) (1 - 1-dose 60+ series) 2016 DXA,FEMALES AGE 65 OR GREATER 2021 COVID-19 Vaccine ( - 2023-24 season) 2022 Influenza Vaccine Seasonal (Standing Order) (#1) 2022 DIABETES MICROALBUMIN Q1 YEAR (Standing Order) 12/03/2023 01/02/2023, 10/20/2021, 02/15/2021, Additional history exists DIABETES SERUM CREATININE Q1 YEAR (Standing Order) 01/03/2024 01/02/2023, 11/21/2021, 10/20/2021, Additional history exists DIABETES HGB A1C Q6 MONTHS (Standing Order) 01/15/2024 07/16/2023, 01/02/2023, 05/01/2022, Additional history exists HPV Vaccine (Standing Order) Aged Out No longer eligible based on patient's age to complete this topic Hepatitis B Vaccine (Standing Order) Aged Out No longer eligible based on patient's age to complete this topic Procedures Procedure Name Priority Date/Time Associated Diagnosis Comments HEMOGLOBIN A1C Routine 07/16/2023 8:53 AM CDT MICROALBUMIN/CREATININE RATIO, URINE Routine 01/02/2023 9:00 AM CDT BASIC METABOLIC PANEL Routine 01/02/2023 8:36 AM CDT from Last 3 Months or Most Recently Relevant to Health Maintenance
--- OUTSIDE RECORDS SUMMARY | 2023-08-14 13:51 | XMS_ITS | Encounter Summary ---
Author Organization 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 Gender Identity Not on file Sexual Orientation Not on file Job Start Date Occupation Industry Not on file Not on file Not on file documented as of this encounter Plan of Treatment Upcoming Encounters Date Type Department Care Team (Late st Contact Info) Description 08/19/2023 9:30 AM CDT [facility] [address] [facility] [place] [address] 08/20/2023 1:00 PM CDT [facility] [address] [facility] [place] [address] 09/10/2023 1:30 PM CDT [facility] [address]23 [facility] [place] [address] Vasyl Colorado MD [address] [place] [address] 09/24/2023 1:00 PM CDT [facility] [address] [facility] [place] [address] 10/07/2023 1:00 PM CDT Appointment [facility] [address] [place] [address] Vasyl Colorado MD [address] [address] documented as of this encounter Visit Diagnoses Not on filedocumented in this encounter
--- OUTSIDE RECORDS SUMMARY | 2023-08-14 13:51 | XMS_ITS | Encounter Summary ---
Author Organization [facility] Address [address] [address] Phone Care Team Providers Care Ice Rink Attendant Name Role Phone Unavailable Primary Care Provider Unavailabl e Encounter Details Date Type Department Care Team (Late st Contact Info) Description 08/06/2023 11:30 AM CDT Office Visit [facility] [address] [place], [place] [address] Vasyl Colorado MD [address] [address] Essential (primary) hypertension (Primary Dx); Type 1 diabetes mellitus without complication (HCC); Dyslipidemia; Class 3 obesity (HCC) Social History Tobacco Use Types Packs/Day Years Used Date Smoking Tobacco: Former Cigarettes Smokeless Tobacco: Never Tobacco Cessation:Counseling Given: Not Answered Sex and Gender Information Value Date Recorded Sex Assigned at Female 05/06/2023 3:28 PM 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[employer] Gender Identity Not on file Sexual Orientation [...] Mass Index 40.87 08/06/2023 11:26 AM CDT documented in this encounter Patient Instructions * Patient Instructions* Vasyl Colorado MD - 08/06/2023 11:30 AM CDT Explore other handouts, resources Discussed goals with Continue current diet 100 to 150 g of carbs a day -will eventually attempt to lower Connect with Opal Vilchis endocrine team for guidance on basal adjustments Asked Opal Vilchis about possible GLP-1 medication Purchase home blood pressure cuff Obtain MyChart access Follow-up with Dionne 2 weeks Continue activity as you are Discussed considering future sleep study documented in this encounter Progress Notes * Vasyl Colorado MD - 08/06/2023 11:30 AM CDT Images from the original note were not included. SUBJECTIVE Melanie Nielsen is a 67 year old female who presents for chief complaint of: Weight Management consult initial, in office: DANIEL Nielsen is referred by No primary care provider on file. for initial weight management consult. Weight today: Weight: 249 lb 6.4 oz (113.1 kg) Body mass index is 40.87 kg/m??. Social background: Social History Social History Narrative From [place], , 2 kids, 5 grandkids; works at [email or web address] there part-time, was at [employer] for 30 yrs prior, she is friends with Miranda Orr, type 1 diabetes diagnosed age 31 and on insulin. Does not smoke, drinks socially. Weight history: Weight gain story: Grew up in [place], some weight concerns as a child/HS; was active on [employer]; 2 kids in her 20s then DM1 diagnoses age 31 yo and insulin added, also had hysterectomy and partial thyroidectomy then, since increased weight gain + 100 LB total since diagnosis; hs had improved A1c control over time but with diet choices and time on insulin as well as lack of activity + 20 LB in last year estimated despite same settings Total daily insulin 60 units, 50% basal/bolus. Average BG 150 mg/dl; total carbs 130-150 grams/day (mostly from starch - pasta bread potatoes), <1% lows, 70 mg/dl with Dexcom alarm, take soda thenprn Issues with feet for the last year, swelling, inflammation, was on Lasix.Walking hard due to foot pain, surgery 2 x on right foot Rev'd last Endocrine note from Opal Worthington, T1DM: Diagnosed at age of 31,using CSII for more than 20 years. Currently [...] stable nodules. TSH from 12/2022 was 0.43. Fairly controlled, has peripheral neuropathy, A1C 6.6. Counseled the patient about the importance of DM control. Counseled her about diet and activity. Change target overnight 10pm-6 AM to 130. Continue other rates the same. Continue CGM use. Attributable causes of weight gain: Longstanding exogenous insulin, reduced activity due to ankle issues, and steroids for this Recent weight range: Highest lifetime weight 250 lbs in year 2020 Prior methods of weight loss (diets, medications, activity, surgery): Herbal life, Golo, increase activity prior experience with low-carb diet?: no What method was most successful 2016, started to 210 LB, -25 LB with weight watchers What is motivating you to achieve weight loss now? So I can be more active On scale from 0-10, how motivated? 12/25 Weigh goal: -50 LB lbs. Target date to achieve: TBD Perceived barriers to achieving weight loss goal: Cooking for 2 - loves starch Medical history Patient Active Problem List Diagnosis Asthma Dyslipidemia Essential (primary) hypertension Hypothyroidism Left thyroid nodule Tubular adenoma of colon Type 1 diabetes mellitus (HCC) Vitamin D deficiency Recent pertinent labs: Activity How many times per week are you physically active? [employer] 1 hr 3 x week at [email or web address], 2 x a week adding yoga - sometimes suspends pump, especially in the water - walking hard due to foot pain, surgery 2 x on right foot Describe your activity routine or favorite activity: Walking Stress Recent major life events of stressors: Weight, however, close, movement History of stress snacking: no,most common snacks: none Other techniques for managing stress: Sleeping Who is a support person in your life? Do not have 1 History of binge eating, nighttime eating or anorexia/bulimia? no Any existing mood disorder? no Sleep Hours of sleep per night: 7 hours Sleep quality: good- does snore, does not nap; is very claustrophobic; open to future sleep Sleep apnea screen: STOP BANG screen Food Who purchases your groceries: Local Where do you shop: and patient During the last 12 months have your struggled to afford or worried about running out of food: No Who is the primary cook at home: Do you know how to read a nutrition label: yes Any dietary restrictions, allergies, or intolerances? no Nutrition routine Morning meal eggs and toast, diet pop, coffee Midday meal eggs, sandwich, diet pop Evening meal steak, fish, hot dish, hamburger, spaghetti, diet pop Most common snacks: bars;water 2-3 glasses/day Do you drink soda, juice or sports drinks:none How much alcohol do you drink:1-2 every 4 mo on occasional How often do you eat out (fast food, restaurants) and what do you eat: once a week Medications Current Outpatient Medications Medication Instructions Continuous Glucose Ota (Dexcom G6 Ota) Device Use daily to monitor blood sugars. Pharmacydispense brand based on insurance. diclofenac (VOLTAREN) 4 g, Topical, 4 TIMES DAILY furosemide (LASIX) 40 mg, Oral, EVERY MORNING insulin aspart (NovoLOG) 100 UNIT/ML vial injection Inject 45-60 units daily via pump Insulin Disposable Pump (Omnipod 5 G6 Intro, Gen 5,) Kit Change pod every 72 or 48 hours, use as directed. Insulin Disposable Pump (Omnipod 5 G6 Pods, Gen 5,) Misc Change pod every 72 or 48 hours, use as directed. levothyroxine (SYNTHROID) 75 mcg, Oral, ONCE DAILY lisinopril-hydroCHLOROthiazide (Prinzide, Zestoretic) 10-12.5 MG oral tablet 1 Tablet, Oral, ONCE DAILY Multiple Vitamins-Minerals (MULTIVITAMIN ADULTS 50+ OR) Oral, ONCE DAILY, Multivitamin contains VitD propranolol LA (INDERAL LA) 60 mg, Oral, ONCE DAILY simvastatin (ZOCOR) 40 mg, Oral, ONCE DAILY Allergies Not on File Social history See above Review of Systems 10 point ROS otherwise negative OBJECTIVE Vitals: 08/06/23 1126 BP: 124/81 Pulse: 86 Weight: 249 lb 6.4 oz (113.1 kg) Height: 5' 5.5 (1.664 m) Body mass index is 40.87 kg/m??. BMI CALC Weight: 249 lb 6.4 oz (113.1 kg) Weight Change Since Last Visit: 0 kg Constitutional: alert, no distress and cooperative Eyes: Sclera non-icteric. Nose: no visible nasal drainage Head: Normocephalic and atraumatic Skin: no suspicious lesions or rashes on visible view of the patient Respiratory: unlabored breathing; speaking in full sentences Neurologic: EOM intact. Psychiatric: Mood euthymic, affect congruent Waist circumference: Weight Management Phase: Active Initial Weight: 249 lb 6.4 oz (113.1 kg) Weight: 249 lb 6.4 oz (113.1 kg) Weight Change Since Last Visit: 0 kg Total Weight Lost: 0 kg Total Weight Lost Percent: 0 % Waist Circumference (cm): 131 cm Initial Body Fat Percentage: 50.1 % Visceral Fat Ratin Lean Mass: 118 lb 3.2 oz (53.6 kg) ASSESSMENT/PLAN Melanie Nielsen is a 67 year old female with BMI of Body mass index is 40.87 kg/m??., class 3 severe obesity and co-diagnoses of diabetes type 1, insulin- dependent, hypertension, hyperlipidemia, history of thyroidectomy, partial, hysterectomy, asthma, presents for initial Weight Management consultation. Weight history pertinent for weight gain, estimated +100 LB since type 1 diabetes diagnosis age 31,she has been insulin-dependent since then, with relatively good glycemic control however interestedand motivated to optimize dietary choices/lifestyle in hopes of facilitating loss of fat mass and im proving overall weight/BMI. Patient is going to seek coordinated care with Opal Vilchis endocrinology team particularly as a pertains to basal adjustments; she will also start off by educating herself on her resources and sharing goals with . Additionally she needs to achieve Picwing[employer] access to communicate with us. She will see us every 1 to 2 weeks virtually. Nutrition: Provided education, counseling and resources to optimize nutrition with therapeutic carbohydrate reduction: low-carbohydrate, moderate protein and healthly fat, nutrient dense food lifestyle. She will continue current daily carbohydrate take 100 150 g a day with basal and bolus adjustments, eventually goal would be to therapeutically lower this as discussed above thereby allowing reduced exogenous insulin dosing needs and maintaining glycemic control Activity: She is already exercising 4-5 times weekly Sleep: Moderate to high pretest probability BLANCA given snoring, neck circumference, weight, would like to reassess after weight loss Behavioral: Denies history of mood disorder or binge eating, recommend she complete emotional eating handout Metabolic markers: Reviewed as above due for A1c 2 Medications notes: Weight positive: exogenous insulin Added: will ask Endocrine team about GLP1 Adjusted: none -no longer taking Lasix, will monitor BP and potentially reduce lisinopril HCTZ Goal for next appt: Explore our handouts, resources Discussed goals with Continue current diet 100 to 150 g of carbs a day -will eventually attempt to lower Connect with Opal Vilchis endocrine team for guidance on basal adjustments Asked Opal Vilchis about possible GLP-1 medication Purchase home blood pressure cuff - future BP rx dose reduction Obtain Picwinghart access Follow-up with Dionne 2 weeks Continue activity as you are Discussed considering future sleep study 60 minutes were spent on this patient at this visit obtaining a history, reviewing medical records,developing a treatment plan, counseling and discussing treatment strategy with patient, coordination of care and documentation. Future Appointments Provider Department Center 08/19/2023 9:30 AM (Arrive by 9:25 AM) [facility]LL[facility] Routed to No primary care provider on file. Vasyl Colorado M.D. Weight Management Department [facility] documented in this encounter Plan of Treatment Upcoming Encounters Date Type Department Care Team (Late st Contact Info) Description 08/19/2023 9:30 AM CDT Appointment [facility] [address] [place] [address] 08/20/2023 1:00 PM CDT Appointment [facility] [address] [place] [address] 09/10/2023 1:30 PM CDT Appointment [facility] [address] [place] [address] Vasyl Colorado MD [address] [address] 09/24/2023 1:00 PM CDT Appointment [facility] [address] [place] [address] 10/07/2023 1:00 PM CDT Appointment [facility] [address] [place] [address] Vasyl Colorado MD [address] [address] documented as of this encounter Visit Diagnoses Diagnosis Essential (primary) hypertension- Primary Unspecified essential hypertension Type 1 diabetes mellitus without complication (HCC) Type I (juvenile type) diabetes mellitus without mention of complication, not stated as uncontrolled Dyslipidemia Other and unspecified hyperlipidemia Class 3 obesity (HCC) documented in this encounter Discontinued Medications Medication Sig Discontinue Reason Start Date End Da te vitamin D3, cholecalciferol, 25 mcg (1000 units) tablet Take 1,000 Units by mouth two times a day. Patient quit taking 08/06/2023 documented as of this encounter Historical Medications * This list may reflect changes made after this encounter. Medication Sig Dispensed Refills Start Date End Date insulin aspart (NovoLOG) 100 UNIT/ML vial injection Inject 45-60 units daily via pump 03/23/2015 Insulin Disposable Pump (Omnipod 5 G6 Intro, Gen 5,) Kit Change pod every 72 or 48 hours, use as directed. 10/26/2021 Insulin Disposable Pump (Omnipod 5 G6 Pods, Gen 5,) Misc Change pod every 72 or 48 hours, use as directed. 04/23/2023 Multiple Vitamins-Minerals (MULTIVITAMIN ADULTS 50+ OR) Take by mouth one time a day. Multivitamin contains Vit D simvastatin (Zocor) 40 MG tablet Take 40 mg by mouth one time a day. 06/15/2014 03/19/2024 propranolol LA (Inderal LA) 60 MG 24 hour capsule Take 60 mg by mouth one time a day. levothyroxine (Synthroid) 75 MCG tablet Take 75 mcg by mouth one time a day. 07/10/2014 lisinopril-hydroCHLORO thiazide (Prinzide, Zestoretic) 10-12.5 MG oral tablet Take 1 Tablet by mouth one time a day. 05/30/2022 03/19/2024 furosemide (Lasix) 40 MG tablet Take 40 mg by mouth every morning. 11/06/2019 diclofenac (Voltaren) 1 % Gel Apply 4 g topically four times a day. 03/28/2023 Continuous Glucose Ota (Dexcom G6 Ota) Device Use daily to monitor blood sugars. Pharmacy dispense brand based on insurance. 11/30/2021 vitamin D3, cholecalciferol, 25 mcg (1000 units) tablet Take 1,000 Units by mouth two times a day. 4 added in this encounter
--- OUTSIDE RECORDS SUMMARY | 2023-08-14 13:52 | XMS_ITS | Encounter Summary ---
Author Organization [employer] Address [address] [address] Care Team Providers Care Carriage Dogger Name Role Phone Needs Pcp, Assignment Primary Care Provider [phone] Reason for Visit * Reason Comments Lab Orders Needed Encounter Details Date Type Department Care Team (Late st Contact Info) Description 07/16/2023 Telephone [facility] [address] [place] [address] Emily Worthington, BS [address] [place] [address] Lab Orders Needed Social History Tobacco Use [...] Appointment [facility] [address] [facility] [address] [place] [address] 10/09/2023 9:00 AM CDT Office Visit [facility] 393 Pulmonary Medicine [address] [place] [address] Mame Canada MD [address] [facility] [address] [place] [address] 12/31/2023 7:00 AM CDT Appointment [facility] [address] [place] [phone] 12/31/2023 9:15 AM CDT Appointment [facility] [address] [place] [phone] Emily Worthington, MBBS [address] [place] [address] documented as of this encounter Visit Diagnoses Not on filedocumented in this encounter Care Teams Carriage Dogger Relationship Specialty Start Date End Date Needs Pcp, Assignment [place], [place] [address] PCP - General 03/22/23 documented as of this encounter
--- OUTSIDE RECORDS SUMMARY | 2023-08-14 13:52 | XMS_ITS | Encounter Summary ---
Author Organization [employer] Address [address], [place] [address] Care Team Providers Care Traffic Maintenance Officer Name Role Phone Needs Pcp, Assignment Primary Care Provider [phone]- [phone] Reason for Visit * Reason Comments Follow-up Encounter Details Date Type Department Care Team (Late st Contact Info) Description 07/22/2023 Telephone [facility] 3800 Endocrinology 38[address] [place] [address] Emily Worthington MBBS [address] [place] [address] Follow-up Social History Tobacco Use Types Packs/Day [...] [place] [address] * Hayley Isaacs, RN - 07/22/2023 8:58 AM CDT Pt LVM on nurse line asking for a call back to schedule a follow-up apt with Dr. Rocha for December. documented in this encounter Plan of Treatment Upcoming Encounters Date Type Department Care Team (Late st Contact Info) Description 10/09/2023 8:00 AM CDT Appointment [facility] 3931 Pulmonary Lab [address] [place] [address] 10/09/2023 9:00 AM CDT Office [facility] 393 Pulmonary Medicine [address] [place] [address] Mame Canada MD [address] [facility] [address] [place] [address] 12/31/2023 7:00 AM CDT Appointment [facility] [address] [place] [address] 12/31/2023 9:15 AM CDT Appointment [facility] [address] [place] [phone] Emily Worthington MBBS [address] [place], [place] [address] documented as of this encounter Visit Diagnoses Not on filedocumented in this encounter Care Teams Traffic Maintenance Officer Relationship Specialty Start Date End Date Needs Pcp, Assignment [place], [place] [address] PCP - General 03/22/23 documented as of this encounter
--- OUTSIDE RECORDS SUMMARY | 2023-08-14 13:52 | XMS_ITS | Clinical Summary ---
Author Organization [employer] Address [address] [place] [address] Care Team Providers Care Slat Basket Maker Machine Name Role Phone Needs Pcp, Assignment Primary Care Provider [phone] Source Comments You are receiving this document as you are listed as the primary care provider,follow-up provider, or the patient has been referred to you for consultation.This is in compliance with the Medicare and[facility] EHR Incentive Program,which states Providers who transition their patient to another setting of careor provider of care or refers their patient to another provider of care shouldprovide summary care record for each transition of care or referral. [facility] Allergies Active Allergy Reactions Criticality Noted Date [...] 1 Kit 10/26/2021 Active Continuous Blood Gluc Lead Producer (DEXCOM G6 FIRST HELPER) DEVIIndications:Cont rolled type 1 diabetes mellitus with [...] every 10 days. Use with transmitter and clinical material handler 9 Each 1 04/23/2023 Active Insulin Disposable [...] Type Department Care Team Description 07/22/[address] [facility] 3800 Endocrinology [address] [facility] [place] [address] Emily Worthington MBBS Follow-up 07/16/2023 9:00 AM CDT Office Visit [facility] [address] [place] [address] Emily Worthington MBBS Controlled type 1 diabetes mellitus with diabetic neuropathy (HRC) (Primary Dx); Left thyroid nodule (HRC); Postsurgical hypothyroidism; Essential (primary) hypertension (HRC); Dyslipidemia (HRC) 07/16/2023 Telephone [facility] [address] [place], [place] [phone] Emily Worthington MBBS Lab Orders Needed from Last 3 Months Immunizations Name Administration Dates Next Due Adult RSV Abrysvo 11/16/2022 Flu Vac (3+ yrs) 01/02/2012,01/05/2011, 4 Fluzone Qiv Multidose Vial 0 .25 (6-35 Mos) 12/24/2018,12/05/2016 Q2M2-Bpdgtkrqje 03/30/2009 Influenza (Flucelvax), Prese rv Free QIV 01/17/2016 Influenza IIV4 (Quadrivalent ) 0.5mL ([id number]) 12/20/2020,12/07/2019,12/31/2012,2009 Influenza IIV4 (Quadrivalent ) Fluad, 65+ Yrs 01/06/2023,11/16/2022 Influenza IIV4 (Quadrivalent ) Fluzone, 65+ Yrs 12/26/2021 MMR 04/18/1993 Moderna 12+ 01/06/2023 Moderna Bivalent 12+ 09/27/2022 Moderna Monovalent 12+ 07/09/2021 PCV13 (Prevnar) 11/23/2015 PCV20 ([id number]) 01/20/2022 PPSV23 (Pneumovax) 02/15/2005 Pfizer Bivalent 12+ [...] Respiratory Rate 16 02/23/2022 11:2 3 AM TERMINAL BLOCK ASSEMBLER Oxygen Saturation 96% 03/20/2023 8:17 AM TERMINAL BLOCK ASSEMBLER Inhaled Oxygen Concentration - - Weight 114.2 kg (251 lb 11.2 oz) 07/16/2023 9:08 AM CDT Height 167.6 cm (5' 6) 07/16/2023 9:08 AM CDT Body Mass Index 40.63 07/16/2023 9:08 AM CDT Plan of Treatment Upcoming Encounters Date Type Department Care Team (Late st Contact Info) Description 10/09/2023 8:00 AM CDT Appointment [facility] 3931 Pulmonary Lab [address] [place] [address] 10/09/2023 9:00 AM CDT Office Visit [facility] 39[address] Pulmonary Medicine [address] [place] [address] [place] [address] Mame Canada MD [address] [facility] [address] [place] [phone] 12/31/2023 7:00 AM CDT Appointment [facility] [address] [place] [address] 12/31/2023 9:15 AM CDT Appointment [facility] [address] [place] [phone] Emily Worthington MBBS [address] [place], [place] [phone] Health Maintenance Due Date Last Done Comments [...] hypothyroidism Essential (primary) hypertension (HRC) Dyslipidemia (HRC) from Last 3 Months or Most Recently Relevant to Health Maintenance Results * (ABNORMAL) HgbA1c - Collect in Clinic (07/16/2023 8:53 AM CDT) Hemoglobin A1C (Rapid) 6.6(H) <=5.6 % 07/16/2023 9:12 AM T [facility] Performing Location Endo A BU 07/16/2023 9:12 AM CDT [facility] Estimated Average Glucose (Calc) 143 < 117 mg/dL 07/16/2023 9:12 AM T [facility] Comment:Estimated average gl ucose (eAG) converts A1c into glucose units (mg/dL) and estimates average glucose over the past approximately 3 months. The eAG reference interval (<117 mg/dL) corresponds to an A1c of <5.7%. Blood Capillary / Unknown 07/16/2023 8:53 AM CDT 07/16/2023 8:54 AM CDT Narrative [facility] - 07/16/2023 9:12 AM CDT For [...] contact the lab for further direction. Emily Worthington [facility]1 Performing Organization Address [facility]/ZIP Co de Phone Number [facility] [address] [place] [phone] * Albumin/Creatinine Ratio,Random Urine (01/02/2023 9:00 AM CDT) Albumin/Creati nine Ratio, Urine, Random 18 <30 mg/g 01/02/2023 9:56 AM T [facility] Albumin, Urine, Random 24.2 mg/L 01/02/2023 9:56 AM T [facility] Creatinine, Urine, Random 138 >20 mg/dL mg/dL 01/02/2023 9:56 AM T [facility] Urine Non-blood Collection / Unknown 01/02/2023 9:00 AM CDT 01/02/2023 9:00 AM CDT Emily Worthington [facility]1 Performing Organization Address [facility]/ZIP Co de Phone Number [facility] [address] [place] [address], [place] [phone] * Lipid Panel and Direct LDL (if needed) (01/02/2023 8:36 AM CDT) Pathologist [facility] Cholesterol 150 0 - 199 mg/dL 01/02/2023 10:07 AM T [facility] Triglyceride 73 <=149 mg/dL 01/02/2023 10:07 AM T [facility] HDL Cholesterol 40 >=40 mg/dL 10:07 AM [facility] LDL, Calculated 95 <130 mg/dL 10:07 AM [facility] Non HDL Chol, Calculated 110 <=159 mg/dL 01/02/2023 10:07 AM [facility] Cholesterol/HDL Ratio 3.8 <=5.0 01/02/2023 10:07 AM [facility] Hours Fasting 3.0 8 - 12 Hours 01/02/2023 10:07 AM [facility] Blood Venipuncture / Unknown 01/02/2023 8:36 AM CDT 01/02/2023 8:36 AM CDT Emily [facility]_1 [facility] [address] [place] [address], [place] [phone] * (ABNORMAL) BMP (01/02/2023 8:36 AM CDT) Pathologist [facility] Sodium 138 136 - 145 mmol/L 01/02/2023 10:07 AM [facility] Potassium 4.5 3.5 - 5.1 mmol/L 01/02/2023 10:07 AM [facility] Chloride 104 98 - 109 mmol/L 01/02/2023 10:07 AM [facility] CO2 27 20 - 29 mmol/L 01/02/2023 10:07 AM T [facility] Anion Gap 7 7 - 16 mmol/L 01/02/2023 10:07 AM T [facility] Calcium 9.6 8.4 - 10.4 mg/dL 01/02/2023 10:07 AM [facility] BUN 23 7 - 26 mg/dL 01/02/2023 10:07 AM [facility] Creatinine 1.10(H) 0.55 - 1.02 mg/dL 01/02/2023 10:07 AM [facility] Glucose 254(H) 70 - 100 mg/dL 01/02/2023 10:07 AM [facility] Comment:The given reference range is for the fasting state. Non-fasting reference range for glucose is 70 - 180 mg/dL. GFR, Estimated 56(L) >60 mL/min/1.7 3m2 01/02/2023 10:07 AM [facility] Hours Fasting 3.0 8 - 12 Hours 01/02/2023 10:07 AM [facility] Blood Venipuncture / Unknown 01/02/2023 8:36 AM CDT 01/02/2023 8:36 AM [facility][NOTE 2] Narrative [facility] - 01/02/2023 10:07 AM [facility][NOTE 2] The National Kidney Disease Education Program suggests measuring Cystatin C in patients with eGFRcrea of 45 to 59 ml/min/1.73^2 who do not have other markers of kidney damage (i.e. elevated urine Albumin/Creatinine Ratio or a prior Cystatin C confirming the presence of chronic kidney disease). Emily S[facility]_1 [facility] [address] [place] [address], [place] [phone] from Last 3 Months or Most Recently Relevant to Health Maintenance Care Teams Slat Basket Maker Machine Relationship Specialty Start Date End Date Needs Pcp, [place] [address] PCP - General 03/22/23
--- OUTSIDE RECORDS SUMMARY | 2023-08-14 13:52 | XMS_ITS | Clinical Summary ---
Author Organization [facility] Address [place], [place] [address] Care Team Providers Care Litigation Services Manager Name Role Phone Beverly Alfonso MD Primary [...] EVERY 10 DAYS. USE WITH TRANSMITTER AND TYPESETTER APPRENTICE 3 Active Dexcom G6 Batch And Furnace Operator for continuous blood glucose monitor (CGM) INJECT [...] Type Department Care Team Description 07/15/2023 Telephone [facility] [address] [place] [address] Garret Cottrell MD Screening 06/21/2023 11:40 AM CDT Office Visit [facility] [address] [place] [address] Yanick Escudero MD Musculoskeletal Problem (Follow up right achilles, Tenex procedure 06/18/23. Steri strip fell off and wound is open.) 06/21/2023 Travel 06/21/2023 Nurse Triage [facility] [address] [place] [address] Yanick Escudero MD Drainage From Incision (Steri strip came off and small opening of incision) 06/21/2023 Telephone [facility] [address] [place] [address] Yanick Esucdero MD Error-please disregard 06/18/2023 7:15 AM CDT Procedure Only [facility] at [facility] [address] [place] [address] Yanick Escudero MD Procedure (Right achilles Tenex [...] (256 lb 8 oz) 03/28/2023 3:30 PM WELDER OPERATOR shoes on Height 167.6 cm (5' 5.98) 11/30/2019 2:09 PM CD T Body Mass Index 41.42 11/30/2019 2:09 PM CDT Plan of Treatment Upcoming Encounters Date Type Department Care Team (Late st Contact Info) Description 08/14/2023 2:00 PM CDT Ancillary Procedure [facility] [address] [place] [address] 08/29/2023 7:30 AM CDT Office Visit [facility] [address] [place] [address] Garret Cottrell MD [address] [place] [address] Health Maintenance Due Date Last Done Comments [...] adequate candidate for conscious sedation. The [id number] was passed through the anus and advanced [...] reponse to care. [facility] and nursing notes for moderate sedation details. Total physician intraservice time was 15 minutes. Garret Cottrell MD 08/13/2018 8:29:52 AM This report has been signed electronically. Note Initiated On: 08/13/2018 8:02 AM Procedure Code(s): --- Professional --- 70759, Colonoscopy, flexible; with removalof tumor(s), polyp(s), or other lesion(s) bysnare technique Diagnosis Code(s): --- Professional --- Z86.010, Personal history of colonicpolyps D12.4, Benign neoplasm of descending colon CPT copyright 2017 [employer]. All rights reserved. The codes documented in this report are preliminary and upon plant inspector reviewmay be revised to meet current compliance [...] of Computer-Aided Detection. COMPARISON FILMS: Yes 04/11/12 [facility] 02/07/11 [facility] FINDINGS: ??Mammographically, the breast tissue is almost entirely fat. ??No suspicious masses or microcalcifications. ??Benign appearing calcifications within both breasts and Intramammary lymph node within right breast. Procedure Note Cong Aranda, DO - 08/23/2014 XR MAMMO BILAT SCREEN FFDM [G0202.0] CLINICAL HISTORY: This is an asymptomatic 58 y.o. patient. INDICATION FOR EXAM: Mammogram Screening. TECHNIQUE: CC & MLO views were obtained. This digital study was evaluatedwith the assistance of Computer-Aided Detection. COMPARISON FILMS: Yes 04/11/12 [facility] 02/07/11 [facility] FINDINGS: Mammographically, the breast tissue is almost [...] - 199 mg/dL 11/13/2013 10:57 AM CDT [facility] TRIGLYCERIDES 68 <150 mg/dL 11/13/2013 10:57 AM CDT [facility] HDL CHOLESTEROL 42 >40 mg/dL 4 10:57 AM CDT [facility] NON-HDL CHOLESTEROL 103 <145 mg/dl 11/13/2013 10:57 AM CDT [facility] CHOL/HDL RATIO 3.45 <4.50 11/13/2013 10:57 AM CDT [facility] LDL CHOLESTEROL 89 <=130 mg/dL 11/13/2013 10:57 AM CDT [facility] PATIENT STATUS FASTING 11/13/2013 10:57 AM CDT [facility] Blood specimen (specimen) BLOOD SPECIMEN / Unknown Venipuncture / Unknown 11/13/2013 10:12 AM CDT 11/13/2013 10:12 AM CDT Scooter Delong MD CHEMISTRY [facility] [address] [place] [address], from Last 3 Months or Most Recently Relevant to Health Maintenance Advance Directives * Full Code (Latest Code Status on File) Date Activated Date Inactivated Comments 03/14/2010 7:15 AM 03/14/2010 1:06 PM * Full Code Date Activated Date Inactivated Comments 03/06/2010 1:01 PM 03/06/2010 10:21 PM * Full Code Date Activated Date Inactivated Comments 11/24/2009 12:33 PM 11/25/2009 2:26 AM Care Teams Litigation Services Manager Relationship Specialty Start Date End Date Beverly Alfonso MD [address] [place] [address] PCP - General Family Practice 08/13/18
--- OUTSIDE RECORDS SUMMARY | 2023-08-14 13:52 | XMS_ITS | Encounter Summary ---
Author Organization [employer] Address [address] [place] [address] Care Team Providers Care Cdl Instructor Name Role Phone Needs Pcp, Assignment Primary Care Provider [phone] Reason for Visit * Reason Comments Diabetes Encounter Details Date Type Department Care Team (Late st Contact Info) Description 07/16/2023 9:00 AM CDT Office Visit [facility] [address] [place] [address] Emily Worthington, YOVANY [address] [place] [address] Controlled type 1 diabetes mellitus with diabetic [...] Worthington MBBS - 07/16/2023 9:00 AM CDT [facility] Department of Endocrinology, Diabetes and Metabolism Clinic [...] further imaging is needed. Emily Worthington MD Clinic Charge Nurse documented in this encounter Plan of Treatment Upcoming Encounters Date Type Department Care Team (Late st Contact Info) Description 10/09/2023 8:00 AM CDT Appointment [facility] 3931 Pulmonary Lab [address] [facility] [address] 10/09/2023 9:00 AM CDT Office Visit [facility] 3931 Pulmonary Medicine [address] [place] [address] Mame Canada MD [address] [facility] [address] [place] [address] 12/31/2023 7:00 AM CDT Appointment [facility] [address] [place] [address] 12/31/2023 9:15 AM CDT Appointment [facility] [address] [place] [phone] Emily Worthington MBBS [address] [place] [address] Scheduled Orders Name Type Priority Associated Diagnoses [...] 6.6(H) <=5.6 % 07/16/2023 9:12 AM T [facility] Performing Location Endo A BU 07/16/2023 9:12 AM CDT [facility] Estimated Average Glucose (Calc) 143 < 117 mg/dL 07/16/2023 9:12 AM CDT [facility] Comment:Estimated average gl ucose (eAG) converts A1c into glucose units (mg/dL) and estimates average glucose over the past approximately 3 months. The eAG reference interval (<117 mg/dL) corresponds to an A1c of <5.7%. Blood Capillary / Unknown 07/16/2023 8:53 AM CDT 07/16/2023 8:54 AM CDT Narrative [facility] - 07/16/2023 9:12 AM CDT For [...] lab for further direction. Emily PEDROZA [facility]_1 [facility] [address] [place] [address], [facility] documented in this encounter Visit Diagnoses Diagnosis Controlled type 1 diabetes mellitus with diabetic neuropathy (HRC)- Primary Left thyroid nodule (HRC) Nontoxic uninodular goiter Postsurgical hypothyroidism Essential (primary) hypertension (HRC) Unspecified essential hypertension Dyslipidemia (HRC) Other and unspecified hyperlipidemia documented in this encounter Care Teams Cdl Instructor Relationship Specialty Start Date End Date Needs Pcp, [place] [address] PCP - General 03/22/23 documented as of this encounter
== END 2023-08-14 13:50 | disposition home or self-care (01) ==
LOC: RAD 13:49
PROVIDERS: PCP Family Medicine; Visit Provider Family Medicine
DX: R60.9 Edema, unspecified (principal); I34.0 Nonrheumatic mitral (valve) insufficiency; R06.02 Shortness of breath
CPT/HCPCS: 93306

== ENCOUNTER 2023-09-09 13:21 | Outpatient (CLI) | payer MEDICARE, SELFPAY ==
--- OUTSIDE RECORDS SUMMARY | 2023-09-09 13:23 | XMS_ITS | Clinical Summary ---
Author Organization [facility] [email or web address] [facility] Address [address] [address] Phone Care Team Providers Care Sr. Pricing Analyst Name Role Phone Unavailable Primary Care Provider Unavailabl e Medications Medication Sig Dispensed Refills Start Date End Date Status Continuous Glucose Production Leader (Dexcom G6 Production Leader) Device Use daily to monitor blood sugars. [...] Encounters Date Type Department Care Team Description 08/20/2023 1:00 PM CDT Telehealth [facility] [address] [place] [address] Type 1 diabetes mellitus without complication (HCC) (Primary Dx); Class 3 obesity (HCC) 08/20/2023 Travel 08/06/2023 11:30 AM CDT Office Visit [facility] [address] [place] [address] Vasyl Colorado MD Essential (primary) hypertension (Primary Dx); Type 1 diabetes mellitus without complication (HCC); Dyslipidemia; Class 3 obesity (HCC) 08/06/2023 Travel from Last 3 Months Social History Tobacco Use Types Packs/Day Years Used Date Smoking Tobacco: Former Cigarettes Smokeless Tobacco: Never Tobacco Cessation:Counseling Given: Not Answered Sex and Gender Information Value Date Recorded Sex Assigned at Female 05/06/2023 3:28 PM BATTERY REPAIRER Gender Identity Female 08/20/2023 12:53 PM CDT Sexual Orientation Not on file Job Start Date Occupation Industry Not on file Not on file Not on file Obstetrics History Last Filed Vital Signs Vital Sign Reading Time Taken Comments Blood Pressure 124/81 08/06/2023 11:26 AM CDT Pulse 86 08/06/2023 11:26 AM CDT Temperature - - Respiratory Rate - - Oxygen Saturation - - Inhaled Oxygen Concentration - - Weight 112.5 kg (248 lb) 08/20/2023 2:16 PM CDT home reading Height 166.4 cm (5' 5.5) 08/20/2023 2:16 PM CDT Body Mass Index 40.64 08/20/2023 2:16 PM CDT Plan of Treatment Upcoming Encounters Date Type Department Care Team (Late st Contact Info) Description 09/10/2023 1:30 PM CDT Appointment [facility] [address] [place], [place] [address] Vasyl Colorado MD [address] [address] 09/24/2023 1:00 PM CDT Appointment [facility] [address] [place] [place], [place] [address] 10/07/2023 1:00 PM CDT Appointment [facility] [address] [place], [place] [address] Vasyl Colorado MD [address] [address] Health Maintenance Due Date Last Done Comments [...] 2016 DXA,FEMALES AGE 65 OR GREATER 2021 Influenza Vaccine Seasonal (Standing Order) (Season Ended) 2023 DIABETES MICROALBUMIN Q1 YEAR (Standing Order) 12/03/2023 [...]
--- OUTSIDE RECORDS SUMMARY | 2023-09-09 13:23 | XMS_ITS | Encounter Summary ---
Author Organization [facility] [employer] [facility] Address [address] [address] Phone Care Team Providers Care Developmental Mathematics Instructor Name Role Phone Unavailable Primary Care Provider Unavailabl e Encounter Details Date Type Department Care Team (Late st Contact Info) Description 08/06/2023 11:30 AM CDT Office Visit [facility] 2023 [place], [place] [address] Vasyl Colorado MD [address] [id number] Essential (primary) hypertension (Primary Dx); Type 1 diabetes mellitus without complication (HCC); Dyslipidemia; Class 3 obesity (HCC) Social History Tobacco Use Types Packs/Day Years Used Date Smoking Tobacco: Former Cigarettes Smokeless Tobacco: Never Tobacco Cessation:Counseling Given: Not Answered Sex and Gender Information Value Date Recorded Sex Assigned at Female 05/06/2023 3:28 PM HARNESS AND BAG INSPECTOR Gender Identity Female 08/20/2023 12:53 PM CDT [...] medication Purchase home blood pressure cuff Obtain Primary Datahart access Follow-up with Dionne 2 weeks Continue [...] background: Social History Social History Narrative From [place], , 2 kids, 5 grandkids; works at [employer] there part-time, was at [employer] for 30 yrs prior, she is friends with Miranda Orr, type 1 diabetes diagnosed age 31 and on insulin. Does not smoke, drinks socially. Weight history: Weight gain story: Grew up in [place], some weight concerns as a child/HS; was active on [employer]; 2 kids in her 20s then DM1 [...] Aquafit 1 hr 3 x week at [facility], 2 x a week adding yoga - [...] Current Outpatient Medications Medication Instructions Continuous Glucose Operations Superintendent (Dexcom G6 Operations Superintendent) Device Use daily to monitor blood sugars. [...] with . Additionally she needs to achieve Samanaget access to communicate with us. She will [...] - future BP rx dose reduction Obtain Primary Datahart access Follow-up with Dionne 2 weeks Continue activity as you are Discussed considering future sleep study 60 minutes were spent on this patient at this visit obtaining a history, reviewing medical records,developing a treatment plan, counseling and discussing treatment strategy with patient, coordination of care and documentation. Future Appointments Provider Department Center 08/19/2023 9:30 AM (Arrive by 9:25 AM) ANCILLARY, [facility] WEIGHT MANAGEMENT [facility] Routed to No primary care provider on file. Vasyl Colorado M.D. Weight Management Department [facility] documented in this encounter Plan of Treatment Upcoming Encounters Date Type Department Care Team (Late st Contact Info) Description 09/10/2023 1:30 PM CDT Appointment [facility] 2023 [place] [address] Vasyl Colorado MD [address] [address] 09/24/2023 1:00 PM CDT Appointment [facility] [address] [place] [address] 10/07/2023 1:00 PM CDT Appointment [facility] 2023 [place] [address] Vasyl Colorado MD [address] [address] documented as of this encounter Visit Diagnoses [...] or 48 hours, use as directed. 10/26/2021 Multiple Vitamins-Minerals (MULTIVITAMIN ADULTS 50+ OR) Take [...] four times a day. 03/28/2023 Continuous Glucose Operations Superintendent (Dexcom G6 Operations Superintendent) Device Use daily to monitor blood sugars. Pharmacy dispense brand based on insurance. 11/30/2021 Insulin Disposable Pump (Omnipod 5 G6 Pods, Gen 5,) Misc Change pod every 72 or 48 hours, use as directed. 04/23/2023 08/20/2023 vitamin D3, cholecalciferol, 25 mcg (1000 units) tablet Take 1,000 Units by mouth two times a day. 4 added in this encounter
--- OUTSIDE RECORDS SUMMARY | 2023-09-09 13:23 | XMS_ITS | Encounter Summary ---
Author Organization [facility] [employer] 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 Gender Identity Female 08/20/2023 12:53 PM CDT Sexual Orientation Not on file Job Start Date Occupation Industry Not on file Not on file Not on file documented as of this encounter Plan of Treatment Upcoming Encounters Date Type Department Care Team (Late st Contact Info) Description 09/10/2023 1:30 PM CDT [facility]ment [facility] 20[address] [place] [address] Vasyl Colorado MD [address] [address] 09/24/2023 1:00 PM CDT Appointment [facility] 20[address] [place] [address] 10/07/2023 1:00 PM CDT Appointment [facility] 20[address] [place] [address] Vasyl Colorado MD [address] [address] documented as of this encounter Visit Diagnoses Not on filedocumented in this encounter
--- OUTSIDE RECORDS SUMMARY | 2023-09-09 13:23 | XMS_ITS | Encounter Summary ---
Author Organization [facility] [employer] [facility] Address [address] [address] Phone Care Team Providers Care Bond Clerk Name Role Phone Unavailable Primary Care Provider Unavailabl e Reason for Visit * Reason Comments Follow Up Obesity Encounter Details Date Type Department Care Team (Late st Contact Info) Description 08/20/2023 1:00 PM CDT Telehealth [facility] 2023 [place], [place] [phone] Type 1 diabetes mellitus without complication (HCC) (Primary Dx); Class 3 obesity (HCC) Social History Tobacco Use Types Packs/Day Years Used Date Smoking Tobacco: Former Cigarettes Smokeless Tobacco: Never Tobacco Cessation:Counseling Given: Not Answered Sex and Gender Information Value Date Recorded Sex Assigned at Female 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 Gender Identity Female 08/20/2023 12:53 PM CDT Sexual Orientation Not on file Job Start Date Occupation Industry Not on file Not on file Not on file documented as of this encounter Last Filed Vital Signs Vital Sign Reading Time Taken Comments Blood Pressure - - Pulse - - Temperature - - Respiratory Rate - - Oxygen Saturation - - Inhaled Oxygen Concentration - - Weight 112.5 kg (248 lb) 08/20/2023 2:16 PM CDT home reading Height 166.4 cm (5' 5.5) 08/20/2023 2:16 PM CDT Body Mass Index 40.64 08/20/2023 2:16 PM CDT documented in this encounter Progress Notes * Dionne Ko RN - 08/20/2023 1:00 PM CDT SUBJECTIVE Melanie Nielsen is a 67 year old female who presents for chief complaint of: Weight Management RN Follow Up Visit Today's Weight 248 lb home reading Wt Readings from Last 3 Encounters: 08/06/23 249 lb 6.4 oz (113.1 kg) Patient WHY - Not as mobile as I could be anymore have to pay more for clothes Changes or stressors since last visit: Patient presents for 2 week follow up today. She is doing well overall. Denies any concerning symptoms today. Has only had 1 hypoglycemic episode since last visit. Unfortunately, her crm marketing executive has been out of office so she hasn't connected with him to discuss adjusting her basal dose. He is suppose to return this week. Reviewed nutrition routine and provided swap item ideas. Patient knows she will struggle with reducing bread - will send recipes for low carb bread, chaffles, and cloud bread to her. Discussed emotional eating and patient states thatshe is prone to boredom eating. Encouraged use of healthy coping tools vs going to food to manage em otions. Asked patient to be aware of trigger foods and to keep them out of the house. Applaud her for her efforts thus far. We will see her back as scheduled. Overall feels well and denies uncontrolled hunger or cravings. Reports good discipline with nutritional recommendations and is tracking food intake. 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 Healthy coping tools: water, walk, talk to friends, or read Sleep: No concerns, fairly good quality Medications changes since last visit? no The patient does not endorse constipation, muscle cramps or lightheadedness. GOALS: Egg bites, egg muffins, eggwich Yogurt: oikos triple zero, chobani zero, or plain whole milk indonesian yogurt Dressing: blue cheese or ranch Trigger food: nutty bars A little salt in the evenings if having a craving: pumpkin seeds, dill pickles, olives, broth, bouillon Continue to use healthy coping vs eating food to manage boredom/stress Try bubblr or zevia for beverage substitute Social history Social History Social History Narrative From [place], , 2 kids, 5 grandkids; works at [employer] there part-time, was at [employer] for 30 yrs prior, she is friends with Miranda Orr, type 1 diabetes diagnosed age 31 and on insulin. Does not smoke, drinks socially. OBJECTIVE There were no vitals filed for this visit. There is no height or weight on file to calculate BMI. Total time spent 50 minutes spent with pt counseling on low carbohydrate lifestyle. Future Appointments Provider Department Center 09/10/2023 1:30 PM (Arrive by 1:25 PM) Vasyl Colorado MD [facility] 09/24/2023 1:00 PM (Arrive by 12:55 PM) ANCILLARY, [facility] 10/07/2023 1:00 PM (Arrive by 12:55 PM) Vasyl Colorado MD [facility] WE[facility] MANA[facility] The patient requested or was interviewed to determine and confirm that telemedicine was an appropriate and effective means for delivering the service. The mode of transmission for the telemedicine service: interactive videoconference. The location of the Patient: Home The location of the Provider: Clinic Dionne Ko RN 08/20/2023 1:56 PM documented in this encounter Plan of Treatment Upcoming Encounters Date Type Department Care Team (Late st Contact Info) Description 09/10/2023 1:30 PM CDT Appointment [facility] [address] [place] [address] Vasyl Colorado MD [address] [address] 09/24/2023 1:00 PM CDT Appointment [facility]NA[facility] [address]23 [place], [place] [address] 10/07/2023 1:00 PM CDT Appointment [facility] [address] [place], [place] [address] Vasyl Colorado MD [address] [address] documented as of this encounter Visit Diagnoses Diagnosis Type 1 diabetes mellitus without complication (HCC)- Primary Type I (juvenile type) diabetes mellitus without mention of complication, not stated as uncontrolled Class 3 obesity (HCC) documented in this encounter Discontinued Medications Medication Sig Discontinue Reason Start Date End Da te Insulin Disposable Pump (Omnipod 5 G6 Pods, Gen 5,) Misc Change pod every 72 or 48 hours, use as directed. Duplicate Medication 04/23/2023 08/20/2023 documented as of this encounter
--- OUTSIDE RECORDS SUMMARY | 2023-09-09 13:23 | XMS_ITS | Encounter Summary ---
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 Gender Identity Female 08/20/2023 12:53 PM CDT Sexual Orientation Not on file Job Start Date Occupation Industry Not on file Not on file Not on file documented as of this encounter Plan of Treatment Upcoming Encounters Date Type Department Care Team (Late st Contact Info) Description 09/10/2023 1:30 PM CDT [facility]ment [facility] [address] [place] [address] Vasyl Colorado MD [address] [address] 09/24/2023 1:00 PM CDT Appointment [facility] [address] [place] [address] 10/07/2023 1:00 PM CDT Appointment [facility] [address] [place] [address] Vasyl Colorado MD [address] [address] documented as of this encounter Visit Diagnoses Not on filedocumented in this encounter
--- OUTSIDE RECORDS SUMMARY | 2023-09-09 13:24 | XMS_ITS | Clinical Summary ---
Author Organization [employer] Address [address] [place] [address] Care Team Providers Care Figurine Maker Name Role Phone Needs Pcp, Assignment Primary Care Provider [phone] Source Comments You are receiving this document as you are listed as the primary care provider,follow-up provider, or the patient has been referred to you for consultation.This is in compliance with the Medicare and[facility] Hospital[facility] EHR Incentive Program,which states Providers who transition their patient to another setting of careor provider of care or refers their patient to another provider of care shouldprovide summary care record for each transition of care or referral. [employer] Allergies Active Allergy Reactions Criticality Noted Date [...] 1 Kit 10/26/2021 Active Continuous Blood Gluc Lumber Loader (DEXCOM G6 COMPUTING SERVICES DIRECTOR) DEVIIndications:Cont rolled type 1 diabetes mellitus with [...] every 10 days. Use with transmitter and desktop administrator 9 Each 1 04/23/2023 Active Insulin Disposable [...] Encounters Date Type Department Care Team Description 08/26/2023 Telephone [place] [address] [place] [address]. [place] [address] Emily Worthington MBBS Questions 07/22/2023 Telephone [place] [phone] Endocrinology [address] [place] [address] [facility] [place] [address] Emily Worthington MBBS Follow-up 07/16/2023 9:00 AM CDT Office Visit [facility] [address] [place] [address] Emily Worthington MBBS Controlled type 1 diabetes mellitus with diabetic neuropathy (HRC) (Primary Dx); Left thyroid nodule (HRC); Postsurgical hypothyroidism; Essential (primary) hypertension (HRC); Dyslipidemia (HRC) 07/16/2023 Telephone [facility] [address] [place] [address] Emily Worthington MBBS Lab Orders Needed from Last 3 Months Immunizations Name Administration Dates Next Due Adult RSV Abrysvo 11/16/2022 Flu Vac (3+ yrs) 01/02/2012,01/05/2011, 4 Fluzone Qiv Multidose Vial 0 .25 (6-35 Mos) 12/24/2018,12/05/2016 [id number] 03/30/2009 Influenza (Flucelvax), Prese rv Free QIV 01/17/2016 Influenza IIV4 (Quadrivalent ) 0.5mL (30785) 12/20/2020,12/07/2019,12/31/2012,2009 Influenza IIV4 (Quadrivalent ) Fluad, 65+ Yrs 01/06/2023,11/16/2022 Influenza IIV4 (Quadrivalent ) Fluzone, 65+ Yrs 12/26/2021 MMR 04/18/1993 Moderna 12+ 01/06/2023 Moderna Bivalent 12+ 09/27/2022 Moderna Monovalent 12+ 07/09/2021 PCV13 (Prevnar) 11/23/2015 PCV20 ([id number]) 01/20/2022 PPSV23 (Pneumovax) 02/15/2005 Pfizer Bivalent 12+ [...] Respiratory Rate 16 02/23/2022 11:2 3 AM NARCOTICS AND VICE DETECTIVE Oxygen Saturation 96% 03/20/2023 8:17 AM NARCOTICS AND VICE DETECTIVE Inhaled Oxygen Concentration - - Weight 114.2 kg (251 lb 11.2 oz) 07/16/2023 9:08 AM CDT Height 167.6 cm (5' 6) 07/16/2023 9:08 AM CDT Body Mass Index 40.63 07/16/2023 9:08 AM CDT Plan of Treatment Upcoming Encounters Date Type Department Care Team (Late st Contact Info) Description 10/09/2023 8:00 AM CDT [facility]ointment [facility] [address] [facility] [place] [address] 10/09/2023 9:00 AM CDT Office Visit [facility] 3931 Pulmonary Medicine [address] [facility] [place] [address] Mame Canada MD [address] [facility] [address] [place] [address] 12/31/2023 7:00 AM CDT Appointment [facility] [address] [place] [phone] 12/31/2023 9:15 AM CDT Appointment [facility] [address] [place] [phone] Emily Worthington MBBS [address] [place], [place] [phone] Health Maintenance Due Date Last Done Comments [...] 6.6(H) <=5.6 % 07/16/2023 9:12 AM T [facility] Performing Location Endo A BU 07/16/2023 9:12 AM T [facility] Estimated Average Glucose (Calc) 143 < 117 mg/dL 07/16/2023 9:12 AM [facility] Comment:Estimated average gl ucose (eAG) converts A1c into glucose units (mg/dL) and estimates average glucose over the past approximately 3 months. The eAG reference interval (<117 mg/dL) corresponds to an A1c of <5.7%. Blood Capillary / Unknown 07/16/2023 8:53 AM CDT 07/16/2023 8:54 AM CDT Narrative [facility] - 07/16/2023 9:12 AM CDT For [...] the lab for further direction. Emily Worthington [facility] [address] [place] [address], [place] * Albumin/Creatinine Ratio,Random Urine (01/02/2023 9:00 AM CDT) Albumin/Creati nine Ratio, Urine, Random 18 <30 mg/g 01/02/2023 9:56 AM [facility] Albumin, Urine, Random 24.2 mg/L 01/02/2023 9:56 AM [facility] Creatinine, Urine, Random 138 >20 mg/dL mg/dL 01/02/2023 9:56 AM [facility] Urine Non-blood Collection / Unknown 01/02/2023 9:00 AM CDT 01/02/2023 9:00 AM CDT Emily Worthington [facility] Performing Organization Address [facility]/ZIP Co de Phone Number [facility] [address] [place] [address], [place] [phone] * Lipid Panel and Direct LDL (if needed) (01/02/2023 8:36 AM CDT) Cholesterol 150 0 - 199 mg/dL 01/02/2023 10:07 AM [facility] Triglyceride 73 <=149 mg/dL 01/02/2023 10:07 AM [facility] HDL Cholesterol 40 >=40 mg/dL 10:07 AM [facility] LDL, Calculated 95 <130 mg/dL 10:07 AM [facility] Non HDL Chol, Calculated 110 <=159 mg/dL 01/02/2023 10:07 AM [facility] Cholesterol/HDL Ratio 3.8 <=5.0 01/02/2023 10:07 AM [facility] Hours Fasting 3.0 8 - 12 Hours 01/02/2023 10:07 AM [facility] Blood Venipuncture / Unknown 01/02/2023 8:36 AM CDT 01/02/2023 8:36 AM CDT Emily Worthington [facility] Performing Organization Address [facility]/ZIP Co de Phone Number [facility] [address] [place] [address], [place] [phone] * (ABNORMAL) BMP (01/02/2023 8:36 AM CDT) Sodium 138 136 - 145 mmol/L 01/02/2023 10:07 AM [facility] Potassium 4.5 3.5 - 5.1 mmol/L 01/02/2023 10:07 AM [facility] Chloride 104 98 - 109 mmol/L 01/02/2023 10:07 AM [facility] CO2 27 20 - 29 mmol/L 01/02/2023 10:07 AM [facility] Anion Gap 7 7 - 16 mmol/L 01/02/2023 10:07 AM [facility] Calcium 9.6 8.4 - 10.4 mg/dL 01/02/2023 10:07 AM [facility] BUN 23 7 - 26 mg/dL 01/02/2023 10:07 AM [facility] Creatinine 1.10(H) 0.55 - 1.02 mg/dL 01/02/2023 10:07 AM [facility] Glucose 254(H) 70 - 100 mg/dL 01/02/2023 10:07 AM [facility] Comment:The given reference range is for the fasting state. Non-fasting reference range for glucose is 70 - 180 mg/dL. GFR, Estimated 56(L) >60 mL/min/1.7 3m2 01/02/2023 10:07 AM [facility] Hours Fasting 3.0 8 - 12 Hours 01/02/2023 10:07 AM [facility] Blood Venipuncture / Unknown 01/02/2023 8:36 AM CDT 01/02/2023 8:36 AM [facility] Narrative [facility] - 01/02/2023 10:07 AM [facility] The National Kidney Disease Education Program suggests measuring Cystatin C in patients with eGFRcrea of 45 to 59 ml/min/1.73^2 who do not have other markers of kidney damage (i.e. elevated urine Albumin/Creatinine Ratio or a prior Cystatin C confirming the presence of chronic kidney disease). Emily [facility] [address] [place] [address], [place] [phone] from Last 3 Months or Most Recently Relevant to Health Maintenance Care Teams Figurine Maker Relationship Specialty Start Date End Date Needs Pcp, [place] [address] PCP - General 03/22/23
--- OUTSIDE RECORDS SUMMARY | 2023-09-09 13:24 | XMS_ITS | Encounter Summary ---
Author Organization [employer] Address [address], [place] [address] Care Team Providers Care Technology Coordinator Name Role Phone Needs Pcp, Assignment Primary Care Provider [phone] Reason for Visit * Reason Comments Follow-up Encounter Details Date Type Department Care Team (Late st Contact Info) Description 07/22/2023 Telephone [facility] [address] Endocrinology [address] [facility] [place] [address] Emily Worthington MBBS [address] [place] [address] Follow-up Social History Tobacco Use [...] AM [place] [address] * Hayley Isaacs, RN - 07/22/2023 8:58 AM CDT Pt LVM on nurse line asking for a call back to schedule a follow-up apt with Dr. Rocha for December. documented in this encounter Plan of Treatment Upcoming Encounters Date Type Department Care Team (Late st Contact Info) Description 10/09/2023 8:00 AM CDT Appointment [facility] 3931 Pulmonary Lab [address]31 [place] [address] 10/09/2023 9:00 AM CDT Office Visit [facility] 393 Pulmonary Medicine [address] [place] [address] Mame Canada MD [address] [facility] [address] [place] [address] 12/31/2023 7:00 AM CDT Appointment [facility] [address] [place] [phone] 12/31/2023 9:15 AM CDT Appointment [facility] [address] [place] [phone] Emily Worthington MBBS [address] [place], [place] [address] documented as of this encounter Visit Diagnoses Not on filedocumented in this encounter Care Teams Technology Coordinator Relationship Specialty Start Date End Date Needs Pcp, Assignment [place], [place] [address] PCP - General 03/22/23 documented as of this encounter
--- OUTSIDE RECORDS SUMMARY | 2023-09-09 13:24 | XMS_ITS | Encounter Summary ---
Author Organization [employer] Address [address] [place] [address] Care Team Providers Care Lacing Cutter Name Role Phone Needs Pcp, Assignment Primary Care Provider [phone] Reason for Visit * Reason Comments Questions Encounter Details Date Type Department Care Team (Late st Contact Info) Description 08/26/2023 Telephone [facility] [address] Endocrinology [address] [facility]. [place], [place] [id number] Emily Worthington, YOVANY [address] [place] [address] Questions Social History Tobacco Use Types Packs/Day Years [...] as of this encounter Nursing Notes * Martir Gamez RN - 08/27/2023 9:13 AM CDT Pt advised of provider recommendations below. Pt verbalizes understanding and is agreeable to plan.Needs assistance with making this change. Was given the number for the local [employer] rep/hop strainer for assistance with this. * Emily Worthington MBBS - 08/26/2023 4:31 PM CDT We changed Targets overnight from 110 to 130 to prevent low glucose level overnight. We can not change basal rates, but rather the target for the glucose, we can change that to 120 to make it slightly tighter overnight. * Hayley Isaacs RN - 08/26/2023 2:48 PM CDT Called pt and relayed information below. Pt wanting to change her basal rates back to what it was prior to 07/16/23 visit and is wondering how to do that on Omnipod pump. * Emily Worthington MBBS - 08/26/2023 1:34 PM CDT She should not adjust anything since she is on automated delivery, if started having low glucose levels, she can place her self on activity mode. Bolus for any carb drinks on clear liquid day as she does on other days. * Hayley Isaacs RN - 08/26/2023 12:39 PM CDT Images from the original note were not included. Pt calling because she is having a colonoscopy on 08/28 at 0730. Instructions: -Clear liquids all day Saturday -Starts prep Saturday at 3pm; remainder of prep at 1:30am -NPO starting at 4:30am -Can leave pump on for procedure documented in this encounter Plan of Treatment Upcoming Encounters Date Type Department Care Team (Late st Contact Info) Description 10/09/2023 8:00 AM CDT [facility]ment [facility] Pulmonary Lab [address] [place] [address] 10/09/2023 9:00 AM CDT Office Visit [facility] Pulmonary Medicine [address] [place] [address] Mame Canada MD [address] [facility] [address] [place] [address] 12/31/2023 7:00 AM CDT Appointment [facility] [address] [place] [phone] 12/31/2023 9:15 AM CDT Appointment [facility] [address] [place] [phone] Emily Worthington MBBS [address] [place], [place] [id number] documented as of this encounter Visit Diagnoses Not on filedocumented in this encounter Care Teams Lacing Cutter Relationship Specialty Start Date End Date Needs Pcp, Assignment [place], [place] [address] PCP - General 03/22/23 documented as of this encounter
--- OUTSIDE RECORDS SUMMARY | 2023-09-09 13:24 | XMS_ITS | Encounter Summary ---
Author Organization [employer] Address [address], [place] [address] Care Team Providers Care Data Analytics Chief Scientist Name Role Phone Needs Pcp, Assignment Primary Care Provider [phone]- [phone] Reason for Visit * Reason Comments Lab Orders Needed Encounter Details Date Type Department Care Team (Late st Contact Info) Description 07/16/2023 Telephone [facility] [address] [place] [address] Emily Worthington, BS [address] [place] [address] Lab Orders Needed Social History [...] Appointment [facility] [address] [facility] [address] [place] [address] 10/09/2023 9:00 AM CDT Office Visit [facility] [address] Pul[facility] Medicine [address] [place] [address] Mame Canada MD [address] [facility] [address] [place] [address] 12/31/2023 7:00 AM CDT Appointment [facility] [address] [place] [phone] 12/31/2023 9:15 AM CDT Appointment [facility] [address] [place] [phone] Emily Worthington, MBBS [address] [place] [address] documented as of this encounter Visit Diagnoses Not on filedocumented in this encounter Care Teams Data Analytics Chief Scientist Relationship Specialty Start Date End Date Needs Pcp, Assignment [place], [place] [address] PCP - General 03/22/23 documented as of this encounter
--- OUTSIDE RECORDS SUMMARY | 2023-09-09 13:24 | XMS_ITS | Encounter Summary ---
Author Organization [employer] Address [address] [place] [address] Care Team Providers Care Civil Engineering Project Designer Name Role Phone Needs Pcp, Assignment Primary Care Provider [phone] Reason for Visit * Reason Comments Diabetes Encounter Details Date Type Department Care Team (Late st Contact Info) Description 07/16/2023 9:00 AM CDT Office Visit [facility] [address] [place] [address] Emily Worthington, YOVANY [address] [place] [address] Controlled type 1 diabetes mellitus [...] Worthington MBBS - 07/16/2023 9:00 AM CDT [facility] Department of Endocrinology, Diabetes and Metabolism Clinic [...] further imaging is needed. Emily Worthington MD Claims Adjuster Supervisor documented in this encounter Plan of Treatment Upcoming Encounters Date Type Department Care Team (Late st Contact Info) Description 10/09/2023 8:00 AM CDT Appointment [facility] [address] Pulmonary Lab [address] [place] [address] 10/09/2023 9:00 AM CDT Office Visit [facility] Pulmonary Medicine [address] [place] [address] Mame Canada MD [address] [facility] [address] [place] [address] 12/31/2023 7:00 AM CDT Appointment [facility] [address] [place] [address] 12/31/2023 9:15 AM CDT Appointment [facility] [address] [place] [phone] Emily Worthington MBBS [address] [place] [address] Scheduled Orders Name Type Priority Associated Diagnoses [...] 6.6(H) <=5.6 % 07/16/2023 9:12 AM T [facility] Performing Location Endo [facility] 07/16/2023 9:12 AM CDT [facility] Estimated Average Glucose (Calc) 143 < 117 mg/dL 07/16/2023 9:12 AM CDT [facility] Comment:Estimated average gl ucose (eAG) converts A1c into glucose units (mg/dL) and estimates average glucose over the past approximately 3 months. The eAG reference interval (<117 mg/dL) corresponds to an A1c of <5.7%. Blood Capillary / Unknown 07/16/2023 8:53 AM CDT 07/16/2023 8:54 AM CDT Narrative [facility] - 07/16/2023 9:12 AM CDT For [...] lab for further direction. Emily [facility] [address] [place] [address], [facility] documented in this encounter Visit Diagnoses Diagnosis Controlled type 1 diabetes mellitus with diabetic neuropathy (HRC)- Primary Left thyroid nodule (HRC) Nontoxic uninodular goiter Postsurgical hypothyroidism Essential (primary) hypertension (HRC) Unspecified essential hypertension Dyslipidemia (HRC) Other and unspecified hyperlipidemia documented in this encounter Care Teams Civil Engineering Project Designer Relationship Specialty Start Date End Date Needs Pcp, [place] [address] PCP - General 03/22/23 documented as of this encounter
--- OUTSIDE RECORDS SUMMARY | 2023-09-09 13:24 | XMS_ITS | Clinical Summary ---
Author Organization [facility] Address [place], [place] [address] Care Team Providers Care Director Of Primary Care Name Role Phone Beverly Shukla MD Primary Care Provider + Allergies Active Allergy Reactions Criticality Noted Date Comments Erythromycin GI Upset,Nausea And Vomiting,Nausea Only 07/28/2006 Medications Medication Sig Dispensed Refills Start Date End Date Status lancets (ONE TOUCH DELICA) 33 gauge misc As directed 1 unit 4 times daily. 200 Each 12 01/27/2013 Active blood sugar diagnostic (ONE TOUCH VERIO) strip Dispense test strips covered by the patient insurance. Test four times per day. 400 Each 12 02/15/2014 Active simvastatin (ZOCOR) 40 mg tabletIndications:Ot her and unspecified hyperlipidemia TAKE ONE TABLET BY MOUTH AT BEDTIME 90 tablet 1 06/15/2014 Active levothyroxine (SYNTHROID) 75 mcg tabletIndications:Un specified hypothyroidism Take 1 tablet by mouth once daily. 90 tablet 1 07/10/2014 Active enalapril (VASOTEC) 10 mg tabletIndications:Hy pertension TAKE ONE TABLET BY MOUTH DAILY 60 tablet 0 10/25/2014 Active NOVOLOG 100 unit/mL injectionIndications :Type 1 diabetes mellitus without complication (HC) USE 65 UNITS DAILY VIA AN INSULIN PUMP 20 mL 0 03/23/2015 Active furosemide (LASIX) 40 mg tabletIndications:Pe ripheral edema Take 1 tablet by mouth every morning. 90 tablet 3 11/06/2019 Active hydrocortisone (HYTONE) 2.5 % ointment 07/22/2020 Active lisinopril-hydrochlo rothiazide (10-12.5 mg) tablet (PRINZIDE; ZESTORETIC) 05/30/2022 Active propranolol ER (INDERAL LA) 60 mg Cs24 Sustained-Release capsule 06/04/2022 Active Dexcom G6 Transmitter for continuous blood glucose monitor (CGM) INJECT 1 EACH SUBCUTANEOUSLY EVERY 3 MONTHS. USE WITH SENSOR 12/12/2022 Active Dexcom G6 Sensor for continuous blood glucose monitor (CGM) USE 1 DEVICE TO TEST EVERY 10 DAYS. USE WITH TRANSMITTER AND POLLUTION CONTROL ENGINEER 03/31/2022 Active Dexcom G6 Computer Support Specialist Instructor for continuous blood glucose monitor (CGM) INJECT 1 DEVICE SUBCUTANEOUSLY NEEDED. USE DIRECTED 01/03/2022 Active diclofenac topical (VOLTAREN) 1 % gelIndications:Achil les tendinosis Apply 4 g topically to affected area(s) four times daily. 100 g 2 03/28/2023 Active durable medical equipment (DME)Indications:Ach illes tendinosis,Achilles tendinitis of right lower extremity Airselect, Standard, Medium 01EF-M Length of Use: 99 months 05/03/2023 Active polyethylene glycol-electrolyte (GOLYTELY) 236-22.74-6.74 -5.86 gram suspensionIndication s:Benign neoplasm of colon, unspecified part of colon Drink 2 liters the day before colonoscopy and 2 liters 6 hours before colonoscopy appointment 4000 mL 08/19/2023 Active Hospital, Clinic, or Other Facility Administered Medication Ordered Dose Route Frequency Start Date End Date Status fentaNYL (PF) (SUBLIMAZE) 50 mcg/mL injection 100 mcgIndications:History of colon polyps 100 mcg IV ONE TIME 08/29/2023 08/29/2023 Ended midazolam (VERSED) injection 2 mgIndications:History of colon polyps 2 mg IV ONE TIME 08/29/2023 08/29/2023 Ended Active Problems Problem Noted Date Diagnosed Date Adhesive capsulitis of left shoulder 02/23/2015 Tubular adenoma of colon 05/14/2014 Overview: Colonoscopy 07/2018 polyp, repeat in 5 years Colonoscopy 08/2023 2-TA, repeat in 5 years Hematuria 05/27/2012 Non-allergic [...] Encounters Date Type Department Care Team Description 08/29/2023 7:30 AM CDT Office Visit [address] [address] Garret Cottrell MD Procedure (Colonoscopy) 08/29/2023 Travel 08/22/[address] [address] Garret Cottrell MD Appointment Reminder 08/14/2023 2:00 PM CDT Ancillary Procedure [facility] [address] [place] [address] 08/14/2023 Travel 07/15/[address] [address] Garret Cottrell MD Screening 06/21/2023 11:40 AM CDT Office Visit [address] [address] Yanick Escudero MD Musculoskeletal Problem (Follow up right achilles, Tenex procedure 06/18/23. Steri strip fell off and wound is open.) 06/21/2023 Travel 06/21/2023 Nurse Triage [address] [address] Yanick Escudero MD Drainage From Incision (Steri strip came off and small opening of incision) 06/21/[address] [address] Yanick Escudero MD Error-please disregard 06/18/2023 7:15 AM CDT Procedure Only [facility] at [address] [phone] Yanick Escudero MD Procedure (Right achilles Tenex [...] Sign Reading Time Taken Comments Blood Pressure 127/61 08/29/2023 8:50 AM CDT Pulse 71 08/29/2023 8:50 AM CDT Temperature 36.4 ??C (97.6 ??F) 06/21/2023 11:43 AM C DT Respiratory Rate 12 08/29/2023 8:50 AM CDT Oxygen Saturation 99% 08/29/2023 8:50 AM CDT Inhaled Oxygen Concentration - - Weight 116.3 kg (256 lb 8 oz) 03/28/2023 3:30 PM HOLISTIC PULSER shoes on Height 167.6 cm (5' 5.98) 11/30/2019 2:09 PM CD T Body Mass Index 41.42 11/30/2019 2:09 PM CDT Plan of Treatment Upcoming Encounters Date Type Department Care Team (Late st Contact Info) Description 09/09/2023 1:30 PM CDT Orders Only [facility] at [facility] [address] [place] [address] Arrived Health Maintenance Due Date Last Done Comments [...] 2021 Medicare Wellness for age 65+ 2021 COVID-19 vaccine series ( season) 2023 01/06/2023, 09/27/2022, 12/26/2021, Additional history exists Influenza for age 65+ 11/17/2023 12/31/2011, 011 Colonoscopy through age 75 08/28/202808/28, 08/29/2023, 08/29/2023, Additional history exists Procedures Procedure Name Priority Date/Time Associated Diagnosis Comments PATH TISSUE EXAM Routine 08/29/2023 12:5 8 PM CDT History of colon polyps Polyp of colon, unspecified part of colon, unspecified type COLONOSCOPY 08/29/2023 7:50 AM CDT ECHO TTE COMPLETE WO CONTRAST Routine 08/14/2023 2:37 PM CDT Edema, unspecified XR MAMMO BILAT SCREEN FFDM (IA) Routine 08/23/2014 8:22 AM CDT Other screening mammogram LIPID PANEL W REFLEX MEASURED LDL Routine 11/13/2013 10:12 AM CDT Type 1 Diabetes A1C < 8 from Last 3 Months or Most Recently Relevant to Health Maintenance Results * PATH TISSUE EXAM (08/29/2023 12:58 PM CDT) Case Report Pathology Report ?Case: [id number] ? Authorizing Provider: ??Garret Cottrell MD ?? Collected: ? 08/29/2023 1258 ? Ordering Location: ? [facility] ?? Received: ?08/29/2023 1258 ? Clinic ? Pathologist: ? Chyna Kebede, DO ? Specimen: ?Transverse Colon Polyp ? 09/02/2023 11:23 AM CDT [facility] Final Diagnosis A) COLON, TRANSVERSE, POLYPECTOMIES: 1. Tubular adenomas (2) 2. Negative for high grade dysplasia 3. Per the colonoscopy report: ?? a. Polyp sizes: 2 mm and 4 mm ?? b. Resection: Complete ?? c. Retrieval: Complete 09/02/2023 11:23 AM T [facility] Clinical Information Ms. Nielsen is a 67 y.o. who presents for colonoscopy examination. Multiple polyps were identified. 09/02/2023 11:23 AM CDT [facility] Gross Description A) Received in formalin are 3 carroll mucosal fragments averaging 3 mm in greatest dimension, which are entirely submitted in one cassette. It is labeled with the patient's name and designated A. Char Alberts 08/30/2023 1:37 PM 09/02/2023 11:23 AM CDT [facility] Microscopic Description The final diagnosis is based on microscopic examination of appropriate sections of all specimens. 09/02/2023 11:23 AM CDT [facility] Additional Information Interpreted at [facility] Central Laboratory - [address] [facility] [address], [place] [address] 09/02/2023 11:23 AM CDT [facility] Other (Transverse Colon Polyp) Non-Blood / Unknown 08/29/2023 12:58 PM CDT 08/29/2023 12:58 PM CDT Garret Cottrell MD PATHOLOGY/[facility]TOLOG [facility] [address] [place] [address], * COLONOSCOPY (08/29/2023 7:50 AM CDT) 08/29/2023 7:50 AM CDT Narrative Transcriptions Garret Cottrell MD - 08/29/2023 8:41 AM CDT Patient Name: Melanie Nielsen Procedure Date: 08/29/2023 Gender: Female Date of : 1955 Admit Type: Outpatient Procedure: Colonoscopy Proceduralist: Garret Cottrell MD , Chandni Braun (Nurse), Viri Bar (Nurse) Indications/Pre-Op Diagnosis: High risk colon cancer surveillance:Personal history of adenoma less than 10 mm in size, Last colonoscopy: July 2018 Medications: Fentanyl 100 micrograms IV, Midazolam 2 mgIV, The level of sedation administered wasmoderate Procedure Description: The patient had risks, benefits and alternatives explained to andgave informed consent. The patient had a stable cardiopulmonary status and judged an adequate candidate for conscious sedation. The endoscope [id number] was passed through the anus andadvanced to the cecum, identified by appendiceal orifice and ileocecal valve.The colonoscopy was performed without difficulty. The patient toleratedthe procedure well. The quality of the bowel preparation was good. The ileocecal valve, appendiceal orifice, and rectum were photographed. Complications: No immediate complications. Estimated Blood Loss & Specimen: Estimated blood loss: none. Specimen collected - Yes and sent to Laboratory Findings: The perianal and digital rectal examinations were normal. A 2 mm polyp was found in the transverse colon. The polyp wassessile. The polyp was removed with a cold biopsy forceps. Resection and retrieval were complete. A 4 mm polyp was found in the transverse colon. The polyp wassessile. The polyp was removed with a cold snare. Resection and retrieval were complete. The exam was otherwise without abnormality. Impressions/Post-Op Diagnosis: - One 2 mm polyp in the transverse colon, removed with a cold biopsy forceps. Resected and retrieved. - One 4 mm polyp in the transverse colon, removed with a cold snare. Resected and retrieved. - The examination was otherwise normal. Recommendation: - Patient has a contact number available for emergencies. The signsand symptoms of potential delayed complications were discussed with the patient. Return to normal activities tomorrow. Written discharge instructions were provided to the patient. - Resume previous diet. - Continue present medications. - Await pathology results. - Repeat colonoscopy is recommended. The colonoscopy date will be determined after pathology results from today's exam become available for review. Moderate Sedation: A time out was performed before the procedure. Moderate (conscious) sedation was administered by the endoscopy nurse and supervised bythe endoscopist. The following parameters were monitored: oxygensaturation, heart rate, blood pressure, EKG, CO2, respiratory rate, adequacy of pulmonary ventilation and reponse to care. Please refer to the patient's medical record flowsheets and nursing notes for moderate sedation details. Total physician intraservice time was 20 minutes. Garret Cottrell MD 08/29/2023 8:41:15 AM This report has been signed electronically. Note Initiated On: 08/29/2023 7:50 AM Procedure Code(s): --- Professional --- 08722, Colonoscopy, flexible; with removalof tumor(s), polyp(s), or other lesion(s) bysnarroc technique 66817, 59, Colonoscopy, flexible; withbiopsy, single or multiple Diagnosis Code(s): --- Professional --- Z86.010, Personal history of colonicpolyps D12.3, Benign neoplasm of transverse colon (hepatic flexure or splenic flexure) CPT copyright 2022 [employer] [place] [employer]. All rights reserved. The codes documented in this report are preliminary and upon engineer first assistant reviewmay be revised to meet current compliance requirements. Scope In: 8:11:54 AM Scope Withdrawal Time 0 hours 11 minutes 48 seconds Scope Out: 8:29:58 AM Garret Cottrell MD PROCEDURE ORD * ECHO TTE COMPLETE WO CONTRAST (08/14/2023 2:37 PM CDT) AORTIC VALVE MEAN PG 5 mmHg EJECTION FRACTION 68 % LVEDD 4.2 cm EJECTION FRACTION 55 - 60% Anatomical Region Laterality Modality Ultrasound 08/14/2023 2:13 PM CDT Narrative 08/14/2023 5:25 PM CDT ECHOCARDIOGRAM MELANIE NIELSEN ? Accession#: ?? [id number] : ?1955 67 years Study Date: ?? 08/14/2023 2:13:51 PM Gender: F ?BP: ? 124/84 mmHg Height: 165.00 cm ?BSA: ?2.20 m? ? ? Weight: 116.00 kg ?Tech: ? MSR ? Referring MD: BEVERLY SHUKLA Site: ? [facility] Reading Location: Mobile OP Patient Location: Outpatient. Procedure: 2D, Color Doppler and Spectral Doppler. Indication for study: Edema, unspecified Cardiac Rhythm: Regular.Study quality: Fair. Final Impressions: 1. Normal LV size, normal wall thickness, normal global systolic function with an estimated EF of 55 - 60%. 2. Right ventricular cavity size is normal, global systolic RV function is normal. 3. The aortic valve is not well visualized, no stenosis and no regurgitation. 4. The mitral valve is sclerotic, no mitral regurgitation. 5. RA and RV pressure could not be estimated. 6. No pericardial effusion. Chamber Sizes and Function Normal left ventricular size, normal wall thickness, normal global systolic function with an estimated EF of 55 - 60%. Left ventricular wall motion not well visualized. No definite resting regional wall motion abnormality seen. Left atrial size is normal. Right ventricular cavity size is normal, global systolic RV function is normal. RV wall thickness is normal. The right atrium is normal. The pulmonary artery is of normal size and origin. The sinus of Valsalva is normal sized. The ascending aorta is normal sized. Valves, RV Pressures and Diastolic Function The aortic valve is not well visualized , no stenosis and no regurgitation. The mitral valve is sclerotic, no mitral regurgitation. Moderate mitral annular calcification is present. Spectral Doppler shows Grade 1 pattern of LV diastolic filling. The tricuspid valve is normal in structure. Tricuspid regurgitation is regurgitation is not evident. The pulmonic valve is normal. No pulmonary regurgitation. Masses, Effusion, Shunts There is no pericardial effusion. The inferior vena cava is not well visualized, respiratory size variation not well visualized. No left to right shunting was detected by limited color flow Doppler interrogation of the interatrial septum. MEASUREMENTS AND CALCULATIONS 2-D Measurements and LV Function: LVID (d) 4.2 cm LV FS% (2D) ?? 46 % LVID (s) 2.2 cm LVOT diameter 1.9 cm IVS (d) ??1.1 cm HR ?72 bpm LVPW (d) 1.1 cm LA Vol index ??17 ml/m2 Ao Sinus 2.8 cm RV Max 4C (d) 4.2 cm Asc Ao ?? 3.1 cm Diastology: Mitral ?Tissue Doppler E Peak 0.9 m/s ??e', Septum ? 0.05 m/s A Peak 1.2 m/s ??e', Lateral ?0.05 m/s E/A ?0.7 ?E/e' Average ?? 18.02 DT ? 189 msec Aortic Valve: Vmax ? 1.5 m/s ??FAVIAN (V) ?? 1.84 cm? ? ? VTI ?0.30 m ?? FAVIAN (I) ?? 1.99 cm? ? ? LVOT V max 1.0 m/s ??Max PG ?9 mmHg LVOT VTI ?? 0.21 m ?? Mean PG ?? 5 mmHg SV ? 59 ml ?Dim Index 0.70 SV index ?? 27 ml/m? ? ? CO ?4.2 l/min ?CI ?1.9 l/min/m? ? ? Mitral Valve: MVA ?4.0 cm? ? ? MV P 1/2 55 msec Tricuspid Valve and estimated PA pressures: TAPSE 1.9 cm . This study was interpreted by an [facility] accredited facility. CC: [facility]) [facility]. ??Final ?? Procedure Note Bello Arreaga MD - 08/14/2023 ECHOCARDIOGRAM MELANIE NIELSEN : 1955 67 years Study Date: 08/14/2023 2:13:51 PM Gender: F BP: 124/84 mmHg Height: 165.00 cm BSA: 2.20 m? ? ? Weight: 116.00 kg Tech: MSR Referring MD: BEVERLY SHUKLA Site: [facility] Reading Location: Mobile OP Patient Location: Outpatient. Procedure: 2D, Color Doppler and Spectral Doppler. Indication for study: Edema, unspecified Cardiac Rhythm: Regular.Study quality: Fair. Final Impressions: 1. Normal LV size, normal wall thickness, normal global systolic functionwith an estimated EF of 55 - 60%. 2. Right ventricular cavity size is normal, global systolic RV functionis normal. 3. The aortic valve is not well visualized, no stenosis and noregurgitation. 4. The mitral valve is sclerotic, no mitral regurgitation. 5. RA and RV pressure could not be estimated. 6. No pericardial effusion. Chamber Sizes and Function Normal left ventricular size, normal wall thickness, normal globalsystolic function with an estimated EF of 55 - 60%. Left ventricular wallmotion not well visualized. No definite resting regional wall motionabnormality seen. Left atrial size is normal. Right ventricular cavitysize is normal, global systolic RV function is normal. RV wall thicknessis normal. The right atrium is normal. The pulmonary artery is of normalsize and origin. The sinus of Valsalva is normal sized. The ascendingaorta is normal sized. Valves, RV Pressures and Diastolic Function The aortic valve is not well visualized , no stenosis and noregurgitation. The mitral valve is sclerotic, no mitral regurgitation.Moderate mitral annular calcification is present. Spectral Doppler showsGrade 1 pattern of LV diastolic filling. The tricuspid valve is normal instructure. Tricuspid regurgitation is regurgitation is not evident. Thepulmonic valve is normal. No pulmonary regurgitation. Masses, Effusion, Shunts There is no pericardial effusion. The inferior vena cava is not wellvisualized, respiratory size variation not well visualized. No left toright shunting was detected by limited color flow Doppler interrogation ofthe interatrial septum. MEASUREMENTS AND CALCULATIONS 2-D Measurements and LV Function: LVID (d) 4.2 cm LV FS% (2D) 46 % LVID (s) 2.2 cm LVOT diameter 1.9 cm IVS (d) 1.1 cm HR 72 bpm LVPW (d) 1.1 cm LA Vol index 17 ml/m2 Ao Sinus 2.8 cm RV Max 4C (d) 4.2 cm Asc Ao 3.1 cm Diastology: Mitral Tissue Doppler E Peak 0.9 m/s e', Septum 0.05 m/s A Peak 1.2 m/s e', Lateral 0.05 m/s E/A 0.7 E/e' Average 18.02 DT 189 msec Aortic Valve: Vmax 1.5 m/s FAVIAN (V) 1.84 cm? ? ? VTI 0.30 m FAVIAN (I) 1.99 cm? ? ? LVOT V max 1.0 m/s Max PG 9 mmHg LVOT VTI 0.21 m Mean PG 5 mmHg SV 59 ml Dim Index 0.70 SV index 27 ml/m? ? ? CO 4.2 l/min CI 1.9 l/min/m? ? ? Mitral Valve: MVA 4.0 cm? ? ? MV P 1/2 55 msec Tricuspid Valve and estimated PA pressures: TAPSE 1.9 cm . This study was interpreted by an [facility] accredited facility. CC: [facility] ([facility]. Final Beverly Shukla MD ECHO ORD * XR MAMMO BILAT SCREEN FFDM [...] of Computer-Aided Detection. COMPARISON FILMS: Yes 04/11/12 [facility] 02/07/11 [facility] FINDINGS: ??Mammographically, the breast tissue is almost entirely fat. ??No suspicious masses or microcalcifications. ??Benign appearing calcifications within both breasts and Intramammary lymph node within right breast. Procedure Note Cong Aranda DO - 08/23/2014 XR MAMMO BILAT SCREEN FFDM [G0202.0] CLINICAL HISTORY: This is an asymptomatic 58 y.o. patient. INDICATION FOR EXAM: Mammogram Screening. TECHNIQUE: CC & MLO views were obtained. This digital study was evaluatedwith the assistance of Computer-Aided Detection. COMPARISON FILMS: Yes 04/11/12 [facility] 02/07/11 [facility] FINDINGS: Mammographically, the breast tissue is almost [...] - 199 mg/dL 11/13/2013 10:57 AM CDT [facility] TRIGLYCERIDES 68 <150 mg/dL 11/13/2013 10:57 AM CDT [facility] HDL CHOLESTEROL 42 >40 mg/dL 4 10:57 AM CDT [facility] NON-HDL CHOLESTEROL 103 <145 mg/dl 11/13/2013 10:57 AM CDT [facility] CHOL/HDL RATIO 3.45 <4.50 11/13/2013 10:57 AM CDT [facility] LDL CHOLESTEROL 89 <=130 mg/dL 11/13/2013 10:57 AM CDT [facility] PATIENT STATUS FASTING 11/13/2013 10:57 AM CDT [facility] Blood specimen (specimen) BLOOD SPECIMEN / Unknown Venipuncture / Unknown 11/13/2013 10:12 AM CDT 11/13/2013 10:12 AM CDT Scooter Delong MD CHEMISTRY Performing Organization Address City/State/[facility] Co de Phone Number [facility] [address] [place] [address], from Last 3 Months or Most Recently Relevant to Health Maintenance Advance Directives * Full Code (Latest Code Status on File) Date Activated Date Inactivated Comments 03/14/2010 7:15 AM 03/14/2010 1:06 PM * Full Code Date Activated Date Inactivated Comments 03/06/2010 1:01 PM 03/06/2010 10:21 PM * Full Code Date Activated Date Inactivated Comments 11/24/2009 12:33 PM 11/25/2009 2:26 AM Care Teams Director Of Primary Care Relationship Specialty Start Date End Date Beverly Shukla MD [address] [place] [address] PCP - General Family Practice 08/13/18
== END 2023-09-09 13:22 | disposition home or self-care (01) ==
LOC: US 13:22
PROVIDERS: PCP Family Medicine; Visit Provider Family Medicine
DX: R60.9 Edema, unspecified (principal)
CPT/HCPCS: 93970

== ENCOUNTER 2023-12-14 15:12 | Outpatient (CLI) | payer MEDICARE, SELFPAY ==
--- OUTSIDE RECORDS SUMMARY | 2023-12-14 15:15 | XMS_ITS | Encounter Summary ---
Author Organization [employer] [facility] Address [address] [address] Phone Care Team Providers Care Technician Submarine Cable Equipment Name Role Phone Unavailable Primary Care Provider Unavailabl e Reason for Visit * Reason Comments Follow Up Obesity Encounter Details Date Type Department Care Team (Late st Contact Info) Description 12/02/2023 1:00 PM CDT Telehealth [facility] WEIGHT MANAGEMENT 2023 [place], [place] [address] Vasyl Colorado MD [address] [address] Type 1 diabetes mellitus without complication (HCC) (Primary Dx); Class 3 obesity (HCC); Dyslipidemia; Essential (primary) hypertension Social History Tobacco Use Types Packs/Day Years Used Date Smoking Tobacco: Former Cigarettes Smokeless Tobacco: Never Tobacco Cessation:Counseling Given: Not Answered Sex and Gender Information Value Date Recorded Sex Assigned at Female 05/06/2023 3:28 PM TREE THINNER Gender Identity Female 08/20/2023 12:53 PM CDT Sexual Orientation Not on file Job Start Date Occupation Industry Not on file Not on file Not on file documented as of this encounter Last Filed Vital Signs Vital Sign Reading Time Taken Comments Blood Pressure 123/63 12/02/2023 12:24 PM CDT Pulse 64 12/02/2023 12:24 PM CDT Temperature - - Respiratory Rate - - Oxygen Saturation - - Inhaled Oxygen Concentration - - Weight 109.3 kg (241 lb) 12/02/2023 12:24 PM CDT Height 166.4 cm (5' 5.5) 12/02/2023 12:24 PM CD T Body Mass Index 39.49 12/02/2023 12:24 PM CDT documented in this encounter Progress Notes * Mari Grissom - 12/02/2023 1:00 PM CDT 11/29/2023 1:14 PM Weight Management Follow-Up Do you feel well? Yes Are you having any uncontrolled hunger? No Are you having any sugar/carb cravings? No Are you satisfied with the foods you are eating? Yes How has your discipline to low-carb lifestyle been? Most days How would you rate your energy? Good Are you having any constipation? No Are you having any muscle cramps (Fr[employer]ico Horses)? No Are you having any dizziness or lightheadedness upon standing? No If taking medications for diabetes other than metformin, are you having any low blood sugars? No For your morning meal, what do you typically eat: Yogurt&fruit or eggs For your mid-day meal, what do you typically eat: Tuna or ham fruit For your evening meal, what do you typically eat: Beef or pork or chicken with a vegtable sometimesa fruit What are your snacks in a typical day: Cottage cheese or cheese chips What liquids do you drink in a typical day: Water, bubbler, diet soda occasional seltzer What kinds of activity are you doing? In the pool classes 3 hours a week walking 1 mile per day How are you sleeping? Good How are you managing stress? Trying to avoid it It makes me want to eat * Vasyl Colorado MD - 12/02/2023 1:00 PM CDT SUBJECTIVE Melanie Nielsen presents for virtual video weight management follow-up. Starting weight 249 LB 08/06/23 Today's Weight: 241 lb (109.3 kg) - 2 LB, - 8 LB overall Changes or stressors since last visit: 2 mo follow up, has had more cravings lately for sweets, some apples, share w/ . She has been eating low-carb. Opal Garsia Endocrine follow upcoming, BGtrends are higher in the evenings. Basal was lowered months ago. A1c due in December there. on as well, no changes w/ mood or activity; did big food event in [place], didn't have usual street food, drank more water. ---------DM1 management data update------ Omnipod, Dexcom data Total daily insulin Total daily insulin units 50-55 (was 60 units). 51% is bolus. Both are auto adjusted via pump based on BG trends Average BG 134-150 mg/dl (was 150 mg/dl) Carbs goal 75-100 g /day average (was 150 g or more/day) - is having some bread and crackers A1c improved from 6.6 to 6.1 at last check early August, - due in December Nutrition routine since last visit: Morning: Eggs or salad Lunch: tuna, cottage cheese Dinner: Meat, vegetable, fruit Snacks: Almonds Liquids: Water, diet soda Activity: Aquafit 1 hr 3 x week at [facility], 2 x a week adding yoga - sometimes suspends pump,especially in the water - walking hard due to foot pain, surgery 2 x on right foot Stress concerns:Weight, mom's health Sleep: good - does snore, does not nap; is very claustrophobic; open to future sleep Medications changes since last visit? no The patient does not endorse constipation, muscle cramps or lightheadedness. Upcoming potential stressors and/or goals for next visit: Endocrine at [facility] upcoming, A1c, GLP-1 conversation pending Less crackers, bread as above Back 01/12 Problem list Patient Active Problem List Diagnosis Asthma Dyslipidemia Essential (primary) hypertension Hypothyroidism Left thyroid nodule Tubular adenoma of colon Type 1 diabetes mellitus (HCC) Vitamin D deficiency Class 3 obesity (HCC) Medications Current Outpatient Medications Medication Sig Dispense Refill Continuous Glucose Etl Lead (Dexcom G6 Etl Lead) Device Use daily to monitor blood sugars. Pharmacydispense brand based on insurance. diclofenac (Voltaren) 1 % Gel Apply 4 g topically four times a day. lisinopril-hydroCHLOROthiazide (Prinzide, Zestoretic) 10-12.5 MG oral tablet Take 1 Tablet by mouthone time a day. levothyroxine (Synthroid) 75 MCG tablet Take 75 mcg by mouth one time a day. propranolol LA (Inderal LA) 60 MG 24 hour capsule Take 60 mg by mouth one time a day. simvastatin (Zocor) 40 MG tablet Take 40 mg by mouth one time a day. Multiple Vitamins-Minerals (MULTIVITAMIN ADULTS 50+ OR) Take by mouth one time a day. Multivitamin contains Vit D Insulin Disposable Pump (Omnipod 5 G6 Intro, Gen 5,) Kit Change pod every 72 or 48 hours, use as directed. insulin aspart (NovoLOG) 100 UNIT/ML vial injection Inject 45-60 units daily via pump No current facility-administered medications for this visit. Allergies Allergies Allergen Reactions Erythromycin Nausea Only Social history Social History Social History Narrative From [place], , 2 kids, 5 grandkids; works at [employer] there part-time, was at [employer] for 30 yrs prior, she is friends with Miranda Orr, type 1 diabetes diagnosed age 31 and on insulin. Does not smoke, drinks socially. Review of Systems 8 point ROS otherwise negative OBJECTIVE Vitals: 12/02/23 1224 BP: 123/63 Pulse: 64 Weight: 241 lb (109.3 kg) Height: 5' 5.5 (1.664 m) Body mass index is 39.49 kg/m??. BMI CALC Constitutional: alert, no distress and cooperative Eyes: Sclera non-icteric. Nose: no visible nasal drainage Head: Normocephalic and atraumatic Skin: no suspicious lesions or rashes on visible view of the patient Respiratory: unlabored breathing; speaking in full sentences Neurologic: EOM intact. Psychiatric: Mood euthymic, affect congruent ASSESSMENT/PLAN Melanie Nielsen is a 67 year old female with BMI of Body mass index is 39.49 kg/m??. consistent with class 3 severe obesity and co-diagnoses of diabetes type 1, insulin-dependent, hypertension, hyperlipidemia, history of thyroidectomy, partial, hysterectomy, asthma, presents for Weight Management - 2 LB, - 8 LB overall; blood sugars remain improved compared to prior to consult though up slightly, same with her daily total insulin needs, to discuss alternative to crackers and bread, as well as trying to reduce carbohydrates to 50-75 g a day which will lower daily insulin needs, allow for moreweight loss, and also lower risk of hypoglycemia; as long as this is. In parallel with basal adjustments from her wheat buyer. She does have upcoming A1c pending with GLP-1 conversation, we will see her back on 01/12 The patient requested or was interviewed to determine and confirm that telemedicine was an appropriate and effective means for delivering the service. The mode of transmission for the telemedicine service: interactive videoconference. The time the service began: 1p The time the service ended: 130p The location of the Patient: home The location of the Provider: [facility] 30 minutes were spent on this patient at this visit obtaining a history, reviewing medical records,developing a treatment plan, counseling and discussing treatment strategy with patient, coordination of care and documentation. CC: No primary care provider on file. Vasyl Colorado M.D. Weight Management Department [facility] documented in this encounter Plan of Treatment Upcoming Encounters Date Type Department Care Team (Late st Contact Info) Description 01/13/2024 1:00 PM CDT Appointment [facility] WEIGHT MANAGEMENT 2023 [place], [place] [address] Vasyl Colorado MD [address] [address] documented as of this encounter Visit Diagnoses Diagnosis Type 1 diabetes mellitus without complication (HCC)- Primary Type I (juvenile type) diabetes mellitus without mention of complication, not stated as uncontrolled Class 3 obesity (HCC) Dyslipidemia Other and unspecified hyperlipidemia Essential (primary) hypertension Unspecified essential hypertension documented in this encounter
--- OUTSIDE RECORDS SUMMARY | 2023-12-14 15:15 | XMS_ITS | Encounter Summary ---
Author Organization [employer] [facility] Address [address] [address] Phone Care Team Providers Care Motor Coach Bus Driver Name Role Phone Unavailable Primary Care Provider Unavailabl e Reason for Visit * Reason Comments Follow Up Obesity Encounter Details Date Type Department Care Team (Late st Contact Info) Description 10/07/2023 1:00 PM CDT Telehealth [facility] WEIGHT MANAGEMENT 2023 [place], [place] [address] Vasyl Colorado MD [address] [id number] Type 1 diabetes mellitus without complication (HCC) (Primary Dx); Essential (primary) hypertension; Class 3 obesity (HCC) Social History Tobacco Use Types Packs/Day Years Used Date Smoking Tobacco: Former Cigarettes Smokeless Tobacco: Never Tobacco Cessation:Counseling Given: Not Answered Sex and Gender Information Value Date Recorded Sex Assigned at Female 05/06/2023 3:28 PM [employer] Gender Identity Female 08/20/2023 12:53 PM CDT [...] - Inhaled Oxygen Concentration - - Weight 110.2 kg (243 lb) 10/07/2023 1:00 PM CDT Height 166.4 cm (5' 5.5) 10/07/2023 1:00 PM CDT Body Mass Index 39.82 10/07/2023 1:00 PM CDT documented in this encounter Progress Notes * Vasyl Colorado MD - 10/07/2023 1:00 PM CDT SUBJECTIVE Melanie Nielsen presents for virtual video weight management follow-up. Starting weight 249 LB 08/06/23 Today's Weight: 243 lb (110.2 kg) + 3 LB, - 6 LB overall Changes or stressors since last visit: food choices going well, more fresh veggies, [employer], etc; no sugar sweets; no low readings, Endocrine visit in the fall. Less walking due to temp. Duefor A1c. Took class called DM 101, more to type 2 population. ---------DM1 management data update: Total daily insulin Total daily insulin 45-48 units (60 units). 62% is bolus. Both are auto adjusted via pump based on BG trends Average BG 100-120 mg/dl (was 150 mg/dl) Carbs goal < 100 g or less (< 30 with meals) (was 150 g or more/day) A1c improved from 6.6 to 6.1 at last check early August at PCP, due for follow up Nov Nutrition routine since last visit: Morning: Eggs or salad Lunch: tuna, cottage cheese Dinner: Meat, vegetable, fruit Snacks: Almonds Liquids: Water, diet soda Activity: Aquafit 1 hr 3 x week at [facility], 2 x a week adding yoga [...] potential stressors and/or goals for next visit: Opal Garsia Endocrine follow up Fall - GLP-1? Back 12/01, A1c then in that timeframe Problem list Patient Active Problem List Diagnosis Asthma Dyslipidemia Essential (primary) hypertension Hypothyroidism Left thyroid nodule Tubular adenoma of colon Type 1 diabetes mellitus (HCC) Vitamin D deficiency Class 3 obesity (HCC) Medications Current Outpatient Medications Medication Sig Dispense Refill Continuous Glucose State Appellate Clerk (Dexcom G6 State Appellate Clerk) Device Use daily to monitor blood sugars. [...] history Social History Social History Narrative From [place], , 2 kids, 5 grandkids; works at [employer] there part-time, was at [employer] for 30 yrs prior, she is friends with Miranda Orr, type 1 diabetes diagnosed age 31 and on insulin. Does not smoke, drinks socially. Review of Systems 8 point ROS otherwise negative OBJECTIVE Vitals: 10/07/23 1300 Weight: 243 lb (110.2 kg) Height: 5' 5.5 (1.664 m) Body mass index is 39.82 kg/m??. BMI CALC Constitutional: alert, no distress [...] with BMI of Body mass index is 39.82 kg/m??. consistent with class 3 severe obesity and co-diagnoses of diabetes type 1, insulin-dependent, hypertension, hyperlipidemia, history of thyroidectomy, partial, hysterectomy, asthma, presents for Weight Management she is + 3 LB, - 6 LB overall Opal Garsia Endocrine follow up Fall - GLP-1 will discuss adding then. Back 12/01, A1c then in that timeframe at Endocrine. Will cont close BG monitoring as above until then The patient requested or was interviewed to determine and confirm that telemedicine was an appropriate and effective means for delivering the service. The mode of transmission for the telemedicine service: interactive videoconference. The time the service began: 1p The time the service ended: 130p The location of the Patient: home The location of the Provider: [facility] 30 minutes were spent on this patient at this visit obtaining a history, reviewing medical records,developing a treatment plan, counseling and discussing treatment strategy with patient, coordination of care and documentation. CC: No primary care provider on file. Vasyl Colorado M.D. Weight Management Department [facility] documented in this encounter Plan of Treatment Upcoming Encounters Date Type Department Care Team (Late st Contact Info) Description 01/13/2024 1:00 PM CDT Appointment [facility] WEIGHT MANAGEMENT 2023 [place] [address] Vasyl Colorado MD [address] [id number] documented as of this encounter Visit Diagnoses Diagnosis Type 1 diabetes mellitus without complication (HCC)- Primary Type I (juvenile type) diabetes mellitus without mention of complication, not stated as uncontrolled Essential (primary) hypertension Unspecified essential hypertension Class 3 obesity (HCC) documented in this encounter
--- OUTSIDE RECORDS SUMMARY | 2023-12-14 15:15 | XMS_ITS | Encounter Summary ---
Author Organization [facility] [employer] [facility] Address [address] [address] Phone Care Team Providers Care Claims Configuration Analyst Name Role Phone Unavailable Primary Care Provider Unavailabl e Encounter Details Date Type Department Care Team (Latest Contact Info) Description 10/07/2023 Travel Social History Tobacco Use Types Packs/Day Years Used Date Smoking Tobacco: Former Cigarettes Smokeless Tobacco: Never Sex and Gender Information Value Date Recorded Sex Assigned at Female 05/06/2023 3:28 PM MEETING MANAGER Gender Identity Female 08/20/2023 12:53 PM CDT Sexual Orientation Not on file Job Start Date Occupation Industry Not on file Not on file Not on file documented as of this encounter Plan of Treatment Upcoming Encounters Date Type Department Care Team (Late st Contact Info) Description 01/13/2024 1:00 PM CDT [facility] 2023 [place], [place] [address] Vasyl Colorado MD [address] [id number] documented as of this encounter Visit Diagnoses Not on filedocumented in this encounter
--- OUTSIDE RECORDS SUMMARY | 2023-12-14 15:15 | XMS_ITS | Encounter Summary ---
Author Organization [facility] Address [address] [address] Phone Care Team Providers Care Stem Lead Former Name Role Phone Unavailable Primary Care Provider Unavailabl e Encounter Details Date Type Department Care Team (Latest Contact Info) Description 09/24/2023 Travel Social History Tobacco Use Types Packs/Day Years Used Date Smoking Tobacco: Former Cigarettes Smokeless Tobacco: Never Sex and Gender Information Value Date Recorded Sex Assigned at Female 05/06/2023 3:28 PM WIRE WINDING MACHINE TENDER Gender Identity Female 08/20/2023 12:53 PM CDT Sexual Orientation Not on file Job Start Date Occupation Industry Not on file Not on file Not on file documented as of this encounter Plan of Treatment Upcoming Encounters Date Type Department Care Team (Late st Contact Info) Description 01/13/2024 1:00 PM CDT [facility] 2023 [place], [place] [address] Vasyl Colorado MD [address] [phone] documented as of this encounter Visit Diagnoses Not on filedocumented in this encounter
--- OUTSIDE RECORDS SUMMARY | 2023-12-14 15:15 | XMS_ITS | Encounter Summary ---
Author Organization [facility] [employer] [facility] Address [address] [address] Phone Care Team Providers Care Core Maker Helper Name Role Phone Unavailable Primary Care Provider Unavailabl e Encounter Details Date Type Department Care Team (Latest Contact Info) Description 09/20/2023 Travel Social History Tobacco Use Types Packs/Day Years Used Date Smoking Tobacco: Former Cigarettes Smokeless Tobacco: Never Sex and Gender Information Value Date Recorded Sex Assigned at Female 05/06/2023 3:28 PM PRE K LEAD TEACHER Gender Identity Female 08/20/2023 12:53 PM CDT Sexual Orientation Not on file Job Start Date Occupation Industry Not on file Not on file Not on file documented as of this encounter Plan of Treatment Upcoming Encounters Date Type Department Care Team (Late st Contact Info) Description 01/13/2024 1:00 PM CDT [facility] 2023 [place], [place] [phone] Vasyl Colorado MD [address] [address] documented as of this encounter Visit Diagnoses Not on filedocumented in this encounter
--- OUTSIDE RECORDS SUMMARY | 2023-12-14 15:15 | XMS_ITS | Encounter Summary ---
Author Organization [facility] [employer] [facility] Address [address] [address] Phone Care Team Providers Care Setter Off Name Role Phone Unavailable Primary Care Provider Unavailabl e Encounter Details Date Type Department Care Team (Latest Contact Info) Description 09/10/2023 Travel Social History Tobacco Use Types Packs/Day Years Used Date Smoking Tobacco: Former Cigarettes Smokeless Tobacco: Never Sex and Gender Information Value Date Recorded Sex Assigned at Female 05/06/2023 3:28 PM [facility] Gender Identity Female 08/20/2023 12:53 PM CDT Sexual Orientation Not on file Job Start Date Occupation Industry Not on file Not on file Not on file documented as of this encounter Plan of Treatment Upcoming Encounters Date Type Department Care Team (Late st Contact Info) Description 01/13/2024 1:00 PM CDT [facility] 2023 [place], [place] [address] Vasyl Colorado MD [address] [phone] documented as of this encounter Visit Diagnoses Not on filedocumented in this encounter
--- OUTSIDE RECORDS SUMMARY | 2023-12-14 15:15 | XMS_ITS | Clinical Summary ---
Author Organization [facility] [employer] [facility] Address [address] [address] Phone Care Team Providers Care Waiter/Waitress Informal Name Role Phone Unavailable Primary Care Provider Unavailabl e Allergies Active Allergy Reactions Criticality Noted Date Comments Erythromycin Nausea Only Low 07/28/2006 Medications Medication Sig Dispensed Refills Start Date End Date Status Continuous Glucose Wiring Technician (Dexcom G6 Wiring Technician) Device Use daily to monitor blood sugars. Pharmacy dispense brand based on insurance. 11/30/2021 Active diclofenac (Voltaren) 1 % Gel Apply 4 g topically four times a day. 03/28/2023 Active lisinopril-hydroCH LOROthiazide (Prinzide, Zestoretic) 10-12.5 MG [...] Encounters Date Type Department Care Team Description 12/02/2023 1:00 PM CDT [facility] CLINIC WEIGHT MANAGEMENT [address] [place] [address] Vasyl Colorado MD Type 1 diabetes mellitus without complication (HCC) (Primary Dx); Class 3 obesity (HCC); Dyslipidemia; Essential (primary) hypertension 11/29/2023 Travel 10/07/2023 1:00 PM CDT [facility] CLINIC WEIGHT MANAGEMENT [address] [place] [address] Vasyl Colorado MD Type 1 diabetes mellitus without complication (HCC) (Primary Dx); Essential (primary) hypertension; Class 3 obesity (HCC) 10/07/2023 Travel 09/25/2023 3:30 PM CDT [facility] WEIGHT MANAGEMENT 20[address] [place] [address] Vasyl Colorado MD Type 1 diabetes mellitus without complication (HCC) (Primary Dx); Class 3 obesity (HCC) 09/24/2023 Travel 09/20/2023 Travel from Last 3 Months Social History Tobacco Use Types Packs/Day Years Used Date Smoking Tobacco: Former Cigarettes Smokeless Tobacco: Never Tobacco Cessation:Counseling Given: Not Answered Sex and Gender Information Value Date Recorded Sex Assigned at Female 05/06/2023 3:28 PM GAS FURNACE INSTALLER Gender Identity Female 08/20/2023 12:53 PM CDT [...] Mass Index 39.49 12/02/2023 12:24 PM CDT Plan of Treatment Upcoming Encounters Date Type Department Care Team (Late st Contact Info) Description 01/13/2024 1:00 PM CDT Appointment [facility] WEIGHT MANAGEMENT 20[address] [place], [place] [phone] Vasyl Colorado MD [address] [address] Health Maintenance Due Date Last Done Comments [...] vaccine (Standing Order) (1 of 2) 2006 DXA,FEMALES AGE 65 OR GREATER 2021 COVID-19 Vaccine ( season) 2023 01/06/2023, 09/27/2022, 12/26/2021, Additional history exists Influenza Vaccine Seasonal (Standing Order) (#1) 2023 DIABETES MICROALBUMIN Q1 YEAR (Standing Order) [...]
--- OUTSIDE RECORDS SUMMARY | 2023-12-14 15:15 | XMS_ITS | Encounter Summary ---
Author Organization [facility] Address [address] [address] Phone Care Team Providers Care Grain Miller Helper Name Role Phone Unavailable Primary Care Provider Unavailabl e Encounter Details Date Type Department Care Team (Latest Contact Info) Description 11/29/2023 Travel Social History Tobacco Use Types Packs/Day Years Used Date Smoking Tobacco: Former Cigarettes Smokeless Tobacco: Never Sex and Gender Information Value Date Recorded Sex Assigned at Female 05/06/2023 3:28 PM MOLDING MANAGER Gender Identity Female 08/20/2023 12:53 PM CDT Sexual Orientation Not on file Job Start Date Occupation Industry Not on file Not on file Not on file documented as of this encounter Plan of Treatment Upcoming Encounters Date Type Department Care Team (Late st Contact Info) Description 01/13/2024 1:00 PM CDT [facility] [address] [place], [place] [phone] Vasyl Colorado MD [address] [phone] documented as of this encounter Visit Diagnoses Not on filedocumented in this encounter
--- OUTSIDE RECORDS SUMMARY | 2023-12-14 15:15 | XMS_ITS | Encounter Summary ---
Author Organization [facility] Address [address] [address] Phone Care Team Providers Care Feed Mill Lab Technician Name Role Phone Unavailable Primary Care Provider Unavailabl e Reason for Visit * Reason Comments Follow Up obesity Encounter Details Date Type Department Care Team (Late st Contact Info) Description 09/12/2023 3:30 PM CDT Telehealth [facility] 2023 [place], [place] [id number] Vasyl Colorado MD [address] [address] Type 1 diabetes mellitus without complication (HCC) (Primary Dx); Essential (primary) hypertension; Class 3 obesity (HCC) Social History Tobacco Use Types Packs/Day Years Used Date Smoking Tobacco: Former Cigarettes Smokeless Tobacco: Never Sex and Gender Information Value Date Recorded Sex Assigned at Female 05/06/2023 3:28 PM CMO Gender Identity Female 08/20/2023 12:53 PM CDT [...] - Inhaled Oxygen Concentration - - Weight 108.9 kg (240 lb) 09/12/2023 3:33 PM CDT Height 166.4 cm (5' 5.5) 09/12/2023 3:33 PM CDT Body Mass Index 39.33 09/12/2023 3:33 PM CDT documented in this encounter Progress Notes * Fiona Hernández - 09/12/2023 3:30 PM CDT 09/10/2023 3:51 PM Weight Management Follow-Up Do you feel [...] morning meal, what do you typically eat: Eggs For your mid-day meal, what do you typically eat: Lemon pepper tuna cottage cheese For your evening meal, what do you typically eat: Meat, vegtable, fruit What are your snacks in a typical day: Almonds What liquids do you drink in a typical day: Water diet pop What kinds of activity are you doing? Water areobics 3xs a week some walking How are you sleeping? Good How are you managing stress? Lots of deep breaths * Vasyl Colorado MD - 09/12/2023 3:30 PM CDT SUBJECTIVE Melanie Nielsen presents for virtual video weight management follow-up. Starting weight 249 LB 08/06/23 Today's Weight: 240 lb (108.9 kg) - 9 LB Changes or stressors since last visit: doing well overall, working on reducing carbs and lower portions; changed muffin to eggs in AM, no bread for lunch, less starch for dinner; no chips; keeping busy, less snacking; more bored eating in the past Spoke to Insecticide Sprayer, updated him, settings on auto adjust; she will follow in December; will discuss GLP-1 in person then, as an option BP 127/61 at office visit ---------DM1 management data: Total daily insulin Total daily insulin 43 units (60 units). 62% is bolus. Both are auto adjusted via pump based on BG trends Average BG 131 mg/dl (was 150 mg/dl) Carbs goal < 100 g or less (was 150 g or more/day) A1c improved from 6.6 to 6.1 at last check early August at PCP Lows: 1 a few nights ago, alarm mild, improved Nutrition routine since last visit: Morning: Eggs Lunch: tuna, cottage cheese Dinner: Meat, vegetable, fruit Snacks: Almonds Liquids: Water, diet soda Activity: Aquafit 1 hr 3 x week at [facility], 2 x a week adding yoga - sometimes suspends pump,especially in the water - walking hard due to foot pain, surgery 2 x on right foot Stress concerns:Weight, mom's health Sleep: good- does snore, does not nap; is very claustrophobic; open to future sleep Medications changes since last visit? no The patient does not endorse constipation, muscle cramps or lightheadedness. Upcoming potential stressors and/or goals for next visit: Opal Garsia Endocrine follow up Fall Back 10/06 virtual Check BPs Problem list Patient Active Problem List Diagnosis Asthma Dyslipidemia Essential (primary) hypertension Hypothyroidism Left thyroid nodule Tubular adenoma of colon Type 1 diabetes mellitus (HCC) Vitamin D deficiency Class 3 obesity (HCC) Medications Current Outpatient Medications Medication Sig Dispense Refill Continuous Glucose Tenon Machine Operator (Dexcom G6 Tenon Machine Operator) Device Use daily to monitor blood [...] current facility-administered medications for this visit. Allergies Not on File Social history Social History Social History Narrative From [place], , 2 kids, 5 grandkids; works at [employer] there part-time, was at [employer] for 30 yrs prior, she is friends with Miranda Orr, type 1 diabetes diagnosed age 31 and on insulin. Does not smoke, drinks socially. Review of Systems 8 point ROS otherwise negative OBJECTIVE Vitals: 09/12/23 1533 Weight: 240 lb (108.9 kg) Height: 5' 5.5 (1.664 m) Body mass index is 39.33 kg/m??. BMI CALC Constitutional: alert, no distress [...] with BMI of Body mass index is 39.33 kg/m??. consistent with class 3 severe obesity and co-diagnoses of diabetes type 1, insulin-dependent, hypertension, hyperlipidemia, history of thyroidectomy, partial, hysterectomy, asthma, presents for Weight Management . - 9 LB since initial encounter with parallel improvements in glycemic control, as noted above in setting of reduced exogenous insulin needs, and improvement in A1c down to 6.1. She monitor blood pressure as well as we can likely DC HCTZ in the coming weeks. She plans to follow-up with manufacturing storeperson as well. Activity, mood and sleep are stable, she will message us sooner if she has any weight, diet glycemic related questions. The patient requested or was interviewed to determine and confirm that telemedicine was an appropriate and effective means for delivering the service. The mode of transmission for the telemedicine service: interactive videoconference. The time the service began: 33p The time the service ended: 400p The location of the Patient: home The location of the Provider: [facility] 30 minutes were spent on this patient at this visit obtaining a history, reviewing medical records,developing a treatment plan, counseling and discussing treatment strategy with patient, coordination of care and documentation. Future Appointments Provider Department Center 09/24/2023 1:00 PM (Arrive by 12:55 PM) ANCILLARY, [facility] WEIGHT MANAGEMENT [facility] 10/07/2023 1:00 PM (Arrive by 12:55 PM) Vasyl Colorado MD [facility] CC: No primary care provider on file. Vasyl Colorado M.D. Weight Management Department [facility] documented in this encounter Plan of Treatment Upcoming Encounters Date Type Department Care Team (Late st Contact Info) Description 01/13/2024 1:00 PM CDT Appointment [facility] [address] [place] [address] Vasyl Colorado MD [address] [address] documented as of this encounter Visit Diagnoses Diagnosis Type 1 diabetes mellitus without complication (HCC)- Primary Type I (juvenile type) diabetes mellitus without mention of complication, not stated as uncontrolled Essential (primary) hypertension Unspecified essential hypertension Class 3 obesity (HCC) documented in this encounter Discontinued Medications Medication Sig Discontinue Reason Start Date End Da te furosemide (Lasix) 40 MG tablet Take 40 mg by mouth every morning. Patient quit taking 11/06/2019 09/12/2023 documented as of this encounter
--- OUTSIDE RECORDS SUMMARY | 2023-12-14 15:15 | XMS_ITS | Encounter Summary ---
Author Organization [facility] Address [address] [address] Phone Care Team Providers Care Skates Operator Name Role Phone Unavailable Primary Care Provider Unavailabl e Reason for Visit * Reason Comments Follow Up obesity Encounter Details Date Type Department Care Team (Late st Contact Info) Description 09/25/2023 3:30 PM CDT Telehealth [facility] [address]23 [place], [place] [address] Vasyl Colorado MD [address] [id number] Type 1 diabetes mellitus without complication (HCC) (Primary Dx); Class 3 obesity (HCC) Social History Tobacco Use Types Packs/Day Years Used Date Smoking Tobacco: Former Cigarettes Smokeless Tobacco: Never Tobacco Cessation:Counseling Given: Not Answered Sex and Gender Information Value Date Recorded Sex Assigned at Female 05/06/2023 3:28 PM MEDICAL UNIT SECRETARY Gender Identity Female 08/20/2023 12:53 PM CDT [...] - Inhaled Oxygen Concentration - - Weight 110.7 kg (244 lb) 09/25/2023 3:30 PM CDT Height 166.4 cm (5' 5.5) 09/25/2023 3:30 PM CDT Body Mass Index 39.99 09/25/2023 3:30 PM CDT documented in this encounter Progress Notes * Dionne Ko RN - 09/25/2023 3:30 PM CDT SUBJECTIVE Melanie Nielsen is a 67 year old female who presents for chief complaint of: Weight Management RN Follow Up Visit Today's Weight: 244 lb (110.7 kg)Weight Wt Readings from Last 3 Encounters: 09/25/23 244 lb (110.7 kg) 09/12/23 240 lb (108.9 kg) 08/20/23 248 lb (112.5 kg) Patient WHY - Not as mobile as I could be anymore have to pay more for clothes Changes or stressors since last visit: Patient presents virtually for follow up today. She is doingwell overall and denies any concerning symptoms at this time. Notes multiple non-scale victories: sweet cravings down, taste buds changing, more energy, and sleep improving! Unfortunately, endocrinology will not see her till December for repeat labs and pump adjustments. Denies recent hypoglycemic ep isodes and shares blood glucose summary listed below. Patient is applauded for her continued efforts. Will update weight management provider about recent trends. We will see patient back in 2 weeks. Overall feels well and denies uncontrolled hunger or cravings. Reports good discipline with nutritional recommendations and is tracking food intake. Blood glucose trends: Dexcom G6 CGM with omnipod Average blood glucose over the past 2 weeks: 147 AM fasting sugar 89-112 52 units of insulin daily Carb intake: pt reports 100-125 grams daily Treats lows with fruit snacks at home and then pauses pump for 1 hour Nutrition routine since last visit: Mornin-8 am - 2 hard boiled eggs and fruit (1 cup melon) Lunch: noon - tuna, cottage cheese, almonds (bread 3-4 slices per week) Dinner: 5-6 pm - meat and veggies or salad Snacks: oikos triple zero yogurt, olives, occ chips Liquids: Water, 2-3 cans of diet pepsi daily, bubblr Activity: water aerobics 45 minutes 3 days per week, occ walking Stress concerns: mom's health, boredom eating. Healthy coping tools: water, walk, talk to friends, spending time with grand kids or reading Sleep: No concerns, fairly good quality Medications changes since last visit? no The patient does not endorse constipation, muscle cramps or lightheadedness. GOALS: Try cheese whisp crackers and pork rinds (try to stay away from the chips) Non-scale victories: sweet cravings down, taste buds changing, more energy, sleep better Drink 64 ounces of water in a day Great job! Social History Social History Narrative From [place], , 2 kids, 5 grandkids; works at [employer] there part-time, was at [employer] for 30 yrs prior, she is friends with Miranda Orr, type 1 diabetes diagnosed age 31 and on insulin. Does not smoke, drinks socially. OBJECTIVE Vitals: 09/25/23 1530 Height: 5' 5.5 (1.664 m) Weight: 244 lb (110.7 kg) BMI (Calculated): 39.99 Body mass index is 39.99 kg/m??. Total time spent 50 minutes spent with pt counseling on low carbohydrate lifestyle. Future Appointments Provider Department Center 10/07/2023 1:00 PM (Arrive by 12:55 PM) Vasyl Colorado MD [facility]NA[facility] The patient requested or was interviewed to determine and confirm that telemedicine was an appropriate and effective means for delivering the service. The mode of transmission for the telemedicine service: interactive videoconference. The location of the Patient: Home The location of the Provider: Clinic Dionne Ko RN 08/20/2023 10:47 AM documented in this encounter Plan of Treatment Upcoming Encounters Date Type Department Care Team (Late st Contact Info) Description 01/13/2024 1:00 PM CDT Appointment [facility] [address] [place] [address] Vasyl Colorado MD [address] [address] documented as of this encounter Visit Diagnoses Diagnosis Type 1 diabetes mellitus without complication (HCC)- Primary Type I (juvenile type) diabetes mellitus without mention of complication, not stated as uncontrolled Class 3 obesity (HCC) documented in this encounter
--- OUTSIDE RECORDS SUMMARY | 2023-12-14 15:16 | XMS_ITS | Encounter Summary ---
Author Organization [employer] Address [address] [address] Care Team Providers Care Placing Judge Name Role Phone Needs Pcp, Assignment Primary Care Provider [phone] Reason for Referral * (Routine) - New Request Specialty Diagnoses / Procedures Referred By Wilfredo biswas Referred To Contact Procedures Pulmonary Function Test - Complete Mame Canada MD [address] [facility] [address] [place] [address] Referral ID Status Reason Start Date Expiration Date V isits Requested Visits Authorized [id number] New Request 10/08/2023 01/06/2025 1 1 Encounter Details Date Type Department Care Team (Latest Contact Info) Description 10/09/2023 7:41 AM CDT - 10/09/2023 11:59 PM CDT Hospital Encounter Specialty Center [address] Pulmonary Lab [address] [facility] [place] [address] Sarcoidosis Discharge Disposition: Home Social History Tobacco Use Types Packs/Day Years [...] on file documented as of this encounter Medications at Time of Discharge Medication Sig Dispensed Refills Start Date End Date ACCU-CHEK GUIDE test stripIndications:Contr olled type 1 diabetes mellitus with diabetic neuropathy (HRC) Use to test 4-6 times daily 500 Strip 3 08/25/2020 cholecalciferol (VITAMIN D3) 25 MCG (1000 UT) tablet Take 1 Tablet (1,000 Units) by mouth two times a day. Continuous Blood Gluc Adjunct Political Science Instructor (DEXCOM G6 TRAIN RESERVATION CLERK) DEVIIndications:Contro lled type 1 diabetes mellitus with diabetic neuropathy (HRC) Use daily to monitor blood sugars. Pharmacy dispense brand based on insurance. 1 Each 11/30/2021 Continuous Blood Gluc Sensor (DEXCOM G6 SENSOR)Indications:Con trolled type 1 diabetes mellitus with diabetic neuropathy (HRC) Use 1 Device to test every 10 days. Use with transmitter and integration architect 9 Each 1 04/23/2023 Continuous Blood Gluc Transmit (DEXCOM G6 TRANSMITTER)Indication s:Controlled type 1 diabetes mellitus with diabetic neuropathy (HRC) Inject 1 Each subcutaneously every 3 months. Use with sensor 1 Each 1 04/23/2023 enalapril (VASOTEC) 20 MG tabletIndications:Cont rolled type 1 diabetes mellitus with diabetic neuropathy (HRC),Left thyroid nodule (HRC),Postsurgical hypothyroidism,Essenti al (primary) hypertension (HRC),Dyslipidemia (HRC) Take 1 Tablet (20 mg) by mouth daily. 90 Tablet 2 05/01/2021 HUMALOG 100 UNIT/ML injection vial SMARTSI-60 Unit(s) SUB-Q Daily 07/27/2023 insulin aspart (NOVOLOG) 100 UNIT/ML injection (vial)Indications:Cont rolled type 1 diabetes mellitus with diabetic neuropathy (HRC) Inject 45-60 units daily via pump 60 mL 2 03/20/2023 Insulin Disposable Pump (OMNIPOD 5 G6 INTRO, GEN 5,) KITIndications:Control led type 1 diabetes mellitus with diabetic neuropathy (HRC) Change pod every 72 or 48 hours, use as directed. 1 Kit 10/26/2021 Insulin Disposable Pump (OMNIPOD 5 G6 POD, GEN 5,)Indications:Control led type 1 diabetes mellitus with diabetic neuropathy (HRC) Change pod every 72 or 48 hours, use as directed. 45 Each 1 04/23/2023 lancets (ACCU-CHEK FASTCLIX)Indications:C ontrolled type 1 diabetes mellitus with diabetic neuropathy (HRC) Use 1 Each to test five times a day. 500 Each 2 07/05/2020 levothyroxine (SYNTHROID) 50 MCG tabletIndications:Post surgical hypothyroidism Take 1 tab daily Mon-Fri,none on Sat, and none on Sundays 90 Tablet 2 03/20/2023 lisinopril-hydrochloro thiazide (PRINZIDE) 10-12.5 MG tabletIndications:Esse ntial (primary) hypertension (HRC) Take 1 Tablet by mouth daily. 90 Tablet 2 03/20/2023 03/19/2024 simvastatin (ZOCOR) 40 MG tabletIndications:Cont rolled type 1 diabetes mellitus with diabetic neuropathy (HRC),Left thyroid nodule (HRC),Postsurgical hypothyroidism,Essenti al (primary) hypertension (HRC),Dyslipidemia (HRC) Take 1 Tablet (40 mg) by mouth daily at bedtime. 90 Tablet 2 03/20/2023 03/19/2024 documented as of this encounter Plan of Treatment Upcoming Encounters Date Type Department Care Team (Late st Contact Info) Description 12/31/2023 7:00 AM CDT Appointment [facility] [address] [place] [address] 12/31/2023 9:15 AM CDT Appointment [facility] [address] [place] [address] Emily Worthington, YOVANY [address] [place] [address] documented as of this encounter Procedures Procedure Name Priority Date/Time Associated Diagnosis Comments COMPLETE PULMONARY FUNCTION TEST Routine 10/08/2023 8:44 AM CDT documented in this encounter Results * Pulmonary Function Test - Complete (10/08/2023 8:44 AM CDT) 10/08/2023 8:44 AM CDT Mame Canada MD PN PFT ORDERABLES RONALD CRISTOBAL documented in this encounter Visit Diagnoses Diagnosis Sarcoidosis documented in this encounter Care Teams Placing Judge Relationship Specialty Start Date End Date Needs Pcp, [place] [address] PCP - General 03/22/23 documented as of this encounter
--- OUTSIDE RECORDS SUMMARY | 2023-12-14 15:16 | XMS_ITS | Encounter Summary ---
Author Organization [email or web address] Address [address], [place] [address] Care Team Providers Care Facility Service Manager Name Role Phone Needs Pcp, Assignment Primary Care Provider [phone] Reason for Referral * Procedure/Equipment (Routine) - Incomplete Specialty Diagnoses / Procedures Referred By Wilfredo biswas Referred To Contact Diagnoses Sarcoidosis Procedures CT Chest WO IV Cont Mame Canada MD [address] [facility] [address] [place] [address] Referral ID Status Reason Start Date Expiration Date V isits Requested Visits Authorized [id number] Incomplete 10/09/2023 01/07/2025 1 1 Reason for Visit * Reason Comments Follow-up Encounter Details Date Type Department Care Team (Late st Contact Info) Description 10/09/2023 9:00 AM CDT Office Visit Specialty Center [address] Pulmonary Medicine [address] [place] [id number] Mame Canada MD [address] [facility] [address] [place] [id number] Sarcoidosis (Primary Dx) Social History Tobacco Use Types Packs/Day Years [...] - Inhaled Oxygen Concentration - - Weight 113.9 kg (251 lb) 10/09/2023 8:46 AM CDT Height 167.6 cm (5' 6) 10/09/2023 8:46 AM CDT Body Mass Index 40.51 10/09/2023 8:46 AM CDT documented in this encounter Patient Instructions * Patient Instructions* Mame Canada MD - 10/09/2023 9:[address] chest in 8 months 2. follow up in 8 months 3. Recommend flu and covid booster in the Fall documented in this encounter Progress Notes * Mame Canada MD - 10/09/2023 9:00 AM CDT Chief Complaint Patient presents with Follow-up SUBJECTIVE : The patient is a 67 y.o. female who presents today for follow up pulmonary sarcoid. She was last seen in March 2023 and at that time PFT were overall stable. She did get a cardiac MRI and this showed no sign of sarcoid. She was originally diagnosed with pulmonary sarcoidosis at the [facility] [id number]. She also has a history of hypertension and type 1 diabetes. She had presented with mediastinal and hilar lymphadenopathy. Biopsies of the lymph nodes showed clusters of histiocytes and CT needle biopsy of the left upper lobe nodule showed non-necrotizing granulomas. She was not put on any treatment. Her diabetes is under good control and her hgbA1c has been around 6.3. She has done well this past year except for some ankle swelling. As a result she had a repeat echo and this showed a normal EF. She has also been struggling with some achilles tendonitis. She denies any intercurrent respiratory illnesses. She denies any chronic cough or shortness of breath. She does try to do water aerob ics 3 days a week. She is also doing chair yoga 2x week. MEDICATIONS Outpatient Encounter Medications as of 10/09/2023 Medication Sig Dispense Refill ACCU-CHEK GUIDE test strip Use to test 4-6 times daily (Patient not taking: Reported on 10/09/2023) 500 Strip 3 cholecalciferol (VITAMIN D3) 25 MCG (1000 UT) tablet Take 1 Tablet (1,000 Units) by mouth two timesa day. Continuous Blood Gluc Sample Preparation Supervisor (DEXCOM G6 VETERINARIAN ASSISTANT) RUBI Use daily to monitor blood sugars. Pharmacy dispense brand based on insurance. 1 Each 0 Continuous Blood Gluc Sensor (DEXCOM G6 SENSOR) Use 1 Device to test every 10 days. Use with transmitter and end frazer 9 Each 1 Continuous Blood Gluc Transmit (DEXCOM G6 TRANSMITTER) Inject 1 Each subcutaneously every 3 months.Use with sensor 1 Each 1 enalapril (VASOTEC) 20 MG tablet Take 1 Tablet (20 mg) by mouth daily. 90 Tablet 2 HUMALOG 100 UNIT/ML injection vial SMARTSI-60 Unit(s) SUB-Q Daily insulin aspart (NOVOLOG) 100 UNIT/ML injection (vial) Inject 45-60 units daily via pump (Patient not taking: Reported on 10/09/2023) 60 mL 2 Insulin Disposable Pump (OMNIPOD 5 G6 INTRO, GEN 5,) KIT Change pod every 72 or 48 hours, use as directed. 1 Kit 0 Insulin Disposable Pump (OMNIPOD 5 G6 POD, GEN 5,) Change pod every 72 or 48 hours, use as directed. 45 Each 1 lancets (ACCU-CHEK FASTCLIX) Use 1 Each to test five times a day. 500 Each 2 levothyroxine (SYNTHROID) 50 MCG tablet Take 1 tab daily Sat-Sat,none on Sat, and none on Sundays 90 Tablet 2 lisinopril-hydrochlorothiazide (PRINZIDE) 10-12.5 MG tablet Take 1 Tablet by mouth daily. 90 Tablet2 propranolol (INDERALLA) 60 MG 24 hour release capsule Take 1 Capsule (60 mg) by mouth. simvastatin (ZOCOR) 40 MG tablet Take 1 Tablet (40 mg) by mouth daily at bedtime. 90 Tablet 2 No facility-administered encounter medications on file as of 10/09/2023. OBJECTIVE : Gen.: Alert, cooperative in no acute distress. Ht 5' 6 (1.676 m) Wt 251 lb (113.9 kg) BMI 40.51 kg/m?? Head: Normocephalic. Eyes: PERRLA, full EOM. Throat: Moist mucous membranes without lesions, erythema, or exudate. Neck: Supple, without masses, lymphadenopathy or tenderness. Respiratory: Clear to auscultation Heart: RRR without murmur Abdomen: The abdomen was soft and nontender, normal sounds present. Extremities: bilateral pedal edema. Neurologic: Alert, oriented x3, nonfocal. PFT: FVC 91%, FEV1 86%, FEV1/FVC 75,uncDCLO 93% ASSESSMENT : The patient is a 67 y.o. female with stage II pulmonary sarcoid who is clinically stable. Pulmonary function tests remain stable and are actually slightly improved compared to 6 months ago. Her last CT scan of the chest was in February of 2022 and I think it is reasonable to take another look at her imaging at her follow-up visit. Overall from a sarcoid standpoint she still does not require any treatment. She was encouraged to get her vaccines this fall. If she starts to develop any respiratory symptoms of chronic cough or shortness of breath she should contact me. PLAN : 1. CT chest in 8 months 2. follow up in 8 months 3. Recommend flu and covid booster in the Fall documented in this encounter Plan of Treatment Upcoming Encounters Date Type Department Care Team (Late st Contact Info) Description 12/31/2023 7:00 AM CDT Appointment [facility] [address] [place] [address] 12/31/2023 9:15 AM CDT Appointment [facility] [address] [place] [address] Emily Worthington MBBS [address] [place] [address] Scheduled Orders Name Type Priority Associated Diagnoses Orde r Schedule CT Chest WO IV Cont Imaging New Routine Sarcoidosis Expected: 10/09/2023 (Approximate), Expires: 10/08/2024 documented as of this encounter Visit Diagnoses Diagnosis Sarcoidosis- Primary documented in this encounter Care Teams Facility Service Manager Relationship Specialty Start Date End Date Needs Pcp, [place] [address] PCP - General 03/22/23 documented as of this encounter
--- OUTSIDE RECORDS SUMMARY | 2023-12-14 15:16 | XMS_ITS | Clinical Summary ---
Author Organization [employer] Address [place], [place] [address] Care Team Providers Care Construction Trades Contractor Name Role Phone Beverly Alfonso MD Primary [...] 07/22/2020 Active lisinopril-hydrochlo rothiazide (10-12.5 mg) tablet (ZIDE; ZESTORETIC) 05/30/2022 Active propranolol ER (INDERAL LA) 60 mg Cs24 Sustained-Release capsule 06/04/2022 Active Dexcom G6 Transmitter for continuous blood glucose monitor (CGM) INJECT 1 EACH SUBCUTANEOUSLY EVERY 3 MONTHS. USE WITH SENSOR 12/12/2022 Active Dexcom G6 Sensor for continuous blood glucose monitor (CGM) USE 1 DEVICE TO TEST EVERY 10 DAYS. USE WITH TRANSMITTER AND MOLDING MANAGER 03/31/2022 Active Dexcom G6 Network Security Analyst for continuous blood glucose monitor (CGM) INJECT [...] before colonoscopy appointment 4000 mL 08/19/2023 Active Active Problems Problem Noted Date Diagnosed Date Adhesive capsulitis of left shoulder 02/23/2015 Tubular adenoma of colon 05/14/2014 Overview (09/03/2023): Colonoscopy 07/2018 polyp, repeat in 5 years Colonoscopy 08/2023 2-TA, repeat in 5 years Hematuria 05/27/2012 Non-allergic rhinitis 08/19/2011 Vitamin D deficiency 07/23/2010 Benign neoplasm of colon 09/15/2009 Overview (01/08/2014): Colonoscopy 09/2009 multiple polyps. Repeat 09/27 Colonoscopy 12/2013 normal repeat in 5 years Family history of malignant neoplasm of gastrointestinal tract 09/15/2009 Hypertension 12/26/2008 Other and unspecified hyperlipidemia 07/28/2006 Routine general medical exam ination at a health care facility 07/28/2006 Overview (07/28/2006): DEXA - normal - 07/17 Mammogram - normal - 06/21 HYPOTHYROIDISM 07/25/2006 Unspecified asthma(493.90) 07/25/2006 Type 1 Diabetes A1C < 8 03/18/1987 Resolved Problems Problem Noted Date Diagnosed Date Resolved Date ALLERGIC RHINITIS 07/25/2006 08/19/2011 Immunizations Name Administration Dates Next Due Influenza, [...] (256 lb 8 oz) 03/28/2023 3:30 PM GIFT BASKET PACKER shoes on Height 167.6 cm (5' 5.98) 11/30/2019 2:09 PM CD T Body Mass Index 41.42 11/30/2019 2:09 PM CDT Plan of Treatment Health Maintenance Due Date Last Done Comments [...] for age 65+ 2021 COVID-19 vaccine series (2022- season) 2023 01/06/2023, 09/27/2022, 12/26/2021, Additional history exists Influenza for age 65+ 11/17/2023 12/31/2011, 011 Colonoscopy through age 75 08/28/202808/28, 08/29/2023, 08/29/2023, Additional history exists Procedures Procedure Name Priority Date/Time Associated Diagnosis Comments COLONOSCOPY 08/29/2023 7:50 AM CDT XR MAMMO BILAT SCREEN FFDM (IA) Routine 08/23/2014 8:22 AM CDT Other screening mammogram LIPID PANEL W REFLEX MEASURED LDL Routine 11/13/2013 10:12 AM CDT Type 1 Diabetes A1C < 8 from Last 3 Months or Most Recently Relevant to Health Maintenance Results * COLONOSCOPY (08/29/2023 7:50 AM CDT) 08/29/2023 [...] adequate candidate for conscious sedation. The endoscope [id number] was passed through the anus andadvanced to [...] 7:50 AM Procedure Code(s): --- Professional --- 30333, Colonoscopy, flexible; with removalof tumor(s), polyp(s), or other lesion(s) bysnare technique 42517, 59, Colonoscopy, flexible; withbiopsy, single or multiple Diagnosis Code(s): --- Professional --- Z86.010, Personal history of colonicpolyps D12.3, Benign neoplasm of transverse colon (hepatic flexure or splenic flexure) CPT copyright 2022 [employer]. All rights reserved. The codes documented in this report are preliminary and upon real estate consultant reviewmay be revised to meet current compliance [...] of Computer-Aided Detection. COMPARISON FILMS: Yes 04/11/12 [facility] 02/07/11 [facility] FINDINGS: ??Mammographically, the breast tissue is almost [...] of Computer-Aided Detection. COMPARISON FILMS: Yes 04/11/12 [facility] 02/07/11 [facility] FINDINGS: Mammographically, the breast tissue is almost [...] - 199 mg/dL 11/13/2013 10:57 AM CDT [facility] TRIGLYCERIDES 68 <150 mg/dL 11/13/2013 10:57 AM CDT [facility] HDL CHOLESTEROL 42 >40 mg/dL 4 10:57 AM CDT [facility] NON-HDL CHOLESTEROL 103 <145 mg/dl 11/13/2013 10:57 AM CDT [facility] CHOL/HDL RATIO 3.45 <4.50 11/13/2013 10:57 AM CDT [facility] LDL CHOLESTEROL 89 <=130 mg/dL 11/13/2013 10:57 AM CDT [facility] PATIENT STATUS FASTING 11/13/2013 10:57 AM CDT [facility] Blood specimen (specimen) BLOOD SPECIMEN / Unknown Venipuncture / Unknown 11/13/2013 10:12 AM CDT 11/13/2013 10:12 AM CDT Scooter Delong MD CHEMISTRY Performing Organization Address City/State/[facility] Co de Phone Number [facility] [address] [place] [address], from Last 3 Months or Most Recently Relevant to Health Maintenance Advance Directives * Full Code (Latest Code Status on File) Date Activated Date Inactivated Comments 03/14/2010 7:15 AM 03/14/2010 1:06 PM * Full Code Date Activated Date Inactivated Comments 03/06/2010 1:01 PM 03/06/2010 10:21 PM * Full Code Date Activated Date Inactivated Comments 11/24/2009 12:33 PM 11/25/2009 2:26 AM Care Teams Construction Trades Contractor Relationship Specialty Start Date End Date Beverly Alfonso MD [address] [place] [id number] PCP - General Family Practice 08/13/18
--- OUTSIDE RECORDS SUMMARY | 2023-12-14 15:16 | XMS_ITS | Clinical Summary ---
Author Organization [employer] Address [address] [place] [address] Care Team Providers Care Real Estate Agent/Broker Name Role Phone Needs Pcp, Assignment Primary Care Provider [phone] Source Comments You are receiving this document as you are listed as the primary care provider,follow-up provider, or the patient has been referred to you for consultation.This is in compliance with the Medicare and[facility] EHR Incentive Program,which states Providers who transition their patient to another setting of careor provider of care or refers their patient to another provider of care shouldprovide summary care record for each transition of care or referral. [employer] Allergies Active Allergy Reactions Criticality Noted Date [...] times daily 500 Strip 3 08/25/2020 Active Additional Information Patient not taking.Reported on 10/09/2023 enalapril (VASOTEC) 20 MG tabletIndications:Co ntrolled type [...] 1 Kit 10/26/2021 Active Continuous Blood Gluc Executive Recruiter (DEXCOM G6 SUPPLY TEACHER) DEVIIndications:Cont rolled type 1 diabetes mellitus with [...] via pump 60 mL 2 03/20/2023 Active Additional Information Patient not taking.Reported on 10/09/2023 lisinopril-hydrochlo rothiazide (PRINZIDE) 10-12.5 MG tabletIndications:Es sential [...] every 10 days. Use with transmitter and learning and development assistant 9 Each 1 04/23/2023 Active Insulin Disposable Pump (OMNIPOD 5 G6 POD, GEN 5,)Indications:Contr olled type 1 diabetes mellitus with diabetic neuropathy (HRC) Change pod every 72 or 48 hours, use as directed. 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, controlled 11/23/2015 Postsurgical hypothyroidism 11/23/2015 Essential (primary) hypertension 11/23/2015 Dyslipidemia 11/23/2015 Encounters Date Type Department Care Team Description 10/09/2023 9:00 AM CDT [facility] [address] [place] [id number] Mame Canada MD Sarcoidosis (Primary Dx) 10/09/2023 7:41 AM CDT - 10/09/2023 11:59 PM CDT Hospital Encounter Specialty [facility] [address] [place] [id number] Sarcoidosis Discharge Disposition: Home from Last 3 Months Immunizations Name Administration Dates Next Due Adult RSV Abrysvo 11/16/2022 Flu Vac (3+ yrs) 01/02/2012,01/05/2011, 4 Fluzone Qiv Multidose Vial 0 .25 (6-35 Mos) 12/24/2018,12/05/2016 [id number] 03/30/2009 Influenza (Flucelvax), Prese rv Free QIV 01/17/2016 Influenza IIV4 (Quadrivalent ) 0.5mL (06269) 12/20/2020,12/07/2019,12/31/2012,2009 Influenza IIV4 (Quadrivalent ) Fluad, 65+ Yrs 01/06/2023,11/16/2022 Influenza IIV4 (Quadrivalent ) Fluzone, 65+ Yrs 12/26/2021 MMR 04/18/1993 Moderna Bivalent 12+ 09/27/2022 Moderna COVID-19 12+ 01/06/2023 Moderna Monovalent 12+ 07/09/2021 PCV13 (Prevnar) 11/23/2015 PCV20 ([id number]) 01/20/2022 PPSV23 (Pneumovax) 02/15/2005 Pfizer Bivalent 12+ [...] Temperature - - Respiratory Rate 16 02/23/2022 11:23 AM BUFFING LINE SET UP WORKER Oxygen Saturation 96% 03/20/2023 8:17 AM BUFFING LINE SET UP WORKER Inhaled Oxygen Concentration - - Weight 113.9 kg (251 lb) 10/09/2023 8:46 AM CDT Height 167.6 cm (5' 6) 10/09/2023 8:46 AM CDT Body Mass Index 40.51 10/09/2023 8:46 AM CDT Plan of Treatment Upcoming Encounters Date Type Department Care Team (Late st Contact Info) Description 12/31/2023 7:00 AM CDT Appointment [facility] [address] [place] [address] 12/31/2023 9:15 AM CDT Appointment [facility] [address] [place] [address] Emily Worthington MBBS [address] [place] [address] Health Maintenance Due Date Last Done Comments Colon Cancer Screening Plan Due 1955 Diabetes: Eye Exam 1955 Diabetes: Foot Exam 1955 Hep C Screening (Preventive Services) 1955 Mammogram 08/24/2015 08/23/2014 Dexa 2021 Medicare Annual Wellness Visit 03/18/2023 Diabetes: HGBA1C 10/15/2023 07/16/2023, , 05/01/2022, Additional history exists COVID-19 Vaccine ( season) 2023 01/06/2023, 09/27/2022, 12/26/2021, Additional history exists Influenza (#1) 2023 01/06/2023, 03/2022, 12/26/2021, Additional history exists Diabetes: Creatinine 01/03/2024 01/02/2023, 11/21/2021, 10/20/2021, Additional history exists Diabetes: Urine Microalbumin 01/03/2024 01/02/2023, 10/20/2021, 02/15/2021, Additional history exists DTaP/Tdap/Td (2 - Tdap) 11/22/2025 11/23/2015, 06/26 Diabetes: Lipid Panel 01/03/2028 01/02/2023 , 10/20/2021, 02/15/2021, Additional history exists Zoster/Shingles Completed 12/11/2018, 0 05/2018, 06/19/2018, Additional history exists Pneumococcal 65+ Yrs Completed 01/20/2022, 11/23/2015, 02/15/2005 RSV Completed 11/16/2022 HepA Aged Out No longer eligi ble [...] FUNCTION TEST Routine 10/08/2023 8:44 AM CDT HGB A1C Routine 07/16/2023 8:53 AM CDT [...] Recently Relevant to Health Maintenance Results * Pulmonary Function Test - Complete (10/08/2023 8:44 AM CDT) 10/08/2023 8:44 AM CDT Mame Canada MD PN PFT ORDERABLES PN [facility] * (ABNORMAL) HgbA1c - Collect in Clinic (07/16/2023 8:53 AM CDT) Hemoglobin A1C (Rapid) 6.6(H) <=5.6 % 07/16/2023 9:12 AM CDT [facility] Performing Location Endo A BU 07/16/2023 9:12 AM CDT [facility] Estimated Average Glucose (Calc) 143 < 117 mg/dL 07/16/2023 9:12 AM CDT [facility] Comment:Estimated average gl ucose (eAG) converts A1c into glucose units (mg/dL) and estimates average glucose over the past approximately 3 months. The eAG reference interval (<117 mg/dL) corresponds to an A1c of <5.7%. Blood Capillary / Unknown 07/16/2023 8:53 AM CDT 07/16/2023 8:54 AM CDT Narrative [facility] - 07/16/2023 9:12 AM CDT For [...] the lab for further direction. Emily Worthington [facility] Performing Organization Address [facility]/ZIP Co de Phone Number [facility] [id number] [place] [phone] * Albumin/Creatinine Ratio,Random Urine (01/02/2023 9:00 AM CDT) Albumin/Creati nine Ratio, Urine, Random 18 <30 mg/g 01/02/2023 9:56 AM CDT [facility] Albumin, Urine, Random 24.2 mg/L 01/02/2023 9:56 AM CDT [facility] Creatinine, Urine, Random 138 >20 mg/dL mg/dL 01/02/2023 9:56 AM CDT [facility] Urine Non-blood Collection / Unknown 01/02/2023 9:00 AM CDT 01/02/2023 9:00 AM CDT Emily Worthington [facility]_1 Performing Organization Address [facility]/ZIP Co de Phone Number [facility] [address] [place] [phone], [facility] [phone] * Lipid Panel and Direct LDL (if needed) (01/02/2023 8:36 AM CDT) Cholesterol 150 0 - 199 mg/dL 01/02/2023 10:07 AM [facility] Triglyceride 73 <=149 mg/dL 01/02/2023 10:07 AM [facility] HDL Cholesterol 40 >=40 mg/dL 10:07 AM [facility] LDL, Calculated 95 <130 mg/dL 10:07 AM [facility] Non HDL Chol, Calculated 110 <=159 mg/dL 01/02/2023 10:07 AM [facility] Cholesterol/HDL Ratio 3.8 <=5.0 01/02/2023 10:07 AM [facility] Hours Fasting 3.0 8 - 12 Hours 01/02/2023 10:07 AM [facility] Blood Venipuncture / Unknown 01/02/2023 8:36 AM CDT 01/02/2023 8:36 AM CDT Emily Worthington [facility]1 [facility] [address] [place] [address], [facility] [phone] * (ABNORMAL) BMP (01/02/2023 8:36 AM CDT) Sodium 138 136 - 145 mmol/L 01/02/2023 10:07 AM [facility] Potassium 4.5 3.5 - 5.1 mmol/L 01/02/2023 10:07 AM [facility] Chloride 104 98 - 109 mmol/L 01/02/2023 10:07 AM [facility] CO2 27 20 - 29 mmol/L 01/02/2023 10:07 AM [facility] Anion Gap 7 7 - 16 mmol/L 01/02/2023 10:07 AM [facility] Calcium 9.6 8.4 - 10.4 mg/dL 01/02/2023 10:07 AM [facility] BUN 23 7 - 26 mg/dL 01/02/2023 10:07 AM [facility] Creatinine 1.10(H) 0.55 - 1.02 mg/dL 01/02/2023 10:07 AM [facility] Glucose 254(H) 70 - 100 mg/dL 01/02/2023 10:07 AM [facility] Comment:The given reference range is for the fasting state. Non-fasting reference range for glucose is 70 - 180 mg/dL. GFR, Estimated 56(L) >60 mL/min/1.7 3m2 01/02/2023 10:07 AM [facility] Hours Fasting 3.0 8 - 12 Hours 01/02/2023 10:07 AM [facility] Blood Venipuncture / Unknown 01/02/2023 8:36 AM T 01/02/2023 8:36 AM [facility] Narrative [facility] - 01/02/2023 10:07 AM [facility] The National Kidney Disease Education Program suggests measuring Cystatin C in patients with eGFRcrea of 45 to 59 ml/min/1.73^2 who do not have other markers of kidney damage (i.e. elevated urine Albumin/Creatinine Ratio or a prior Cystatin C confirming the presence of chronic kidney disease). Emily [facility] [address] [place] [address], [facility] [phone] from Last 3 Months or Most Recently Relevant to Health Maintenance Care Teams Real Estate Agent/Broker Relationship Specialty Start Date End Date Needs Pcp, [place], [place] [phone] PCP - General 03/22/23
== END 2023-12-14 15:13 | disposition home or self-care (01) ==
PROVIDERS: PCP Family Medicine; Visit Provider Nurse Practitioner
DX: R21 Rash and other nonspecific skin eruption (principal)
CPT/HCPCS: 80076; 85651; 86140

== ENCOUNTER 2024-08-24 13:04 | Emergency (ER) | payer MEDICARE, SELFPAY ==
--- OUTSIDE RECORDS SUMMARY | 2024-08-24 13:06 | XMS_ITS | Encounter Summary ---
Author Organization Replaced by [facility] Address [address] [place] [address] Care Team Providers Care Reel Cutter Name Role Phone Needs Pcp, Assignment Primary Care Provider [phone] Encounter Details Date Type Department Care Team (Late st Contact Info) Description 06/23/2024 E-Visit [facility] [address] [place] [phone] Mychart, [place] [address] Social History Tobacco Use Types Packs/Day Years Used Date Smoking Tobacco: Former Cigarettes 0.5 32 0 03/18/1975 - 03/18/2007 Smokeless Tobacco: Never Alcohol Use Standard Drinks/Week Comments Yes 0 (1 standard drink = 0.6 oz pure alcohol) Occasionally for special occasions Comments Unknown Sex and Gender Information Value Date Recorded Sex Assigned at Not on file Legal Sex Female 9:55 AM CDT Gender Identity Not on file Sexual Orientation Not on file documented as of this encounter Plan of Treatment Not on file documented as of this encounter Visit Diagnoses Not on filedocumented in this encounter Care Teams Reel Cutter Relationship Specialty Start Date End Date Needs Pcp, Assignment [place], [place] [phone] PCP - General 03/22/23 documented as of this encounter
--- OUTSIDE RECORDS SUMMARY | 2024-08-24 13:07 | XMS_ITS | Encounter Summary ---
Author Organization [employer] Address [address] [place] [address] Care Team Providers Care Results Engineer Name Role Phone Needs Pcp, Assignment Primary Care Provider [phone]- [phone] Encounter Details Date Type Department Care Team (Latest Contact Info) Description 07/14/2024 Orders Only [facility] DEPARTMENT Provider, [place] [address] Social History Tobacco Use Types Packs/Day Years [...] on file documented as of this encounter Procedures Procedure Name Priority Date/Time Associated Diagnosis Comments FECAL DNA 07/14/2024 documented in this encounter Results * FECAL DNA (07/14/2024) us Interface Provider DUMMY/OTHER/AR Final Resu lt documented in this encounter Visit Diagnoses Not on filedocumented in this encounter Care Teams Results Engineer Relationship Specialty Start Date End Date Needs Pcp, [place] [address] PCP - General 03/22/23 documented as of this encounter
--- OUTSIDE RECORDS SUMMARY | 2024-08-24 13:07 | XMS_ITS | Clinical Summary ---
Author Organization [facility] Address [address] [place] [id number] Care Team Providers Care Clothes Separator Name Role Phone Beverly Alfonso MD Primary Care Provider + Allergies Active Allergy Reactions Criticality Noted Date Comments Erythromycin GI Upset,Nausea And Vomiting,Nausea Only 07/28/2006 Medications lancets (ONE TOUCH DELICA) 33 gauge misc As directed 1 unit 4 times daily. 200 Each 12 01/28/20 13 Active blood sugar diagnostic (ONE TOUCH VERIO) strip Dispense test strips covered by the patient insurance. Test four times per day. 400 Each 12 02/16/20 14 Active simvastatin (ZOCOR) 40 mg tabletIndications: Other and unspecified hyperlipidemia TAKE ONE TABLET BY MOUTH AT BEDTIME 90 tablet 1 06/16/19 15 Active levothyroxine (SYNTHROID) 75 mcg tabletIndications: Unspecified hypothyroidism Take 1 tablet by mouth once daily. 90 tablet 1 07/11/19 15 Active enalapril (VASOTEC) 10 mg tabletIndications: Hypertension TAKE ONE TABLET BY MOUTH DAILY 60 tablet 0 10/26/19 15 Active NOVOLOG 100 unit/mL injectionIndicatio ns:Type 1 diabetes mellitus without complication (HC) USE 65 UNITS DAILY VIA AN INSULIN PUMP 20 mL 0 03/23/19 16 Active furosemide (LASIX) 40 mg tabletIndications: Peripheral edema Take 1 tablet by mouth every morning. 90 tablet 3 11/06/19 20 Active hydrocortisone (HYTONE) 2.5 % ointment 07/23/19 21 Active lisinopril-hydroch lorothiazide (10-12.5 mg) tablet (PRINZIDE; ZESTORETIC) 05/31/19 23 Active propranolol ER (INDERAL LA) 60 mg Cs24 Sustained-Release capsule 06/05/19 23 Active Dexcom G6 Transmitter for continuous blood glucose monitor (CGM) INJECT 1 EACH SUBCUTANEOUSLY EVERY 3 MONTHS. USE WITH SENSOR 12/13/19 Active Dexcom G6 Sensor for continuous blood glucose monitor (CGM) USE 1 DEVICE TO TEST EVERY 10 DAYS. USE WITH TRANSMITTER AND OIL GAS AND PIPE TESTER 03/31/19 23 Active Dexcom G6 Garnett Mechanic for continuous blood glucose monitor (CGM) INJECT 1 DEVICE SUBCUTANEOUSLY NEEDED. USE DIRECTED 01/04/20 22 Active diclofenac topical (VOLTAREN) 1 % gelIndications:Ach illes tendinosis Apply 4 g topically to affected area(s) four times daily. 100 g 2 03/28/19 24 Active durable medical equipment (DME)Indications:A chilles tendinosis,[place] s tendinitis of right lower extremity Airselect, Standard, Medium 01EF-M Length of Use: 99 months 05/03/19 24 Active polyethylene glycol-electrolyte (GOLYTELY) 236-22.74-6.74 -5.86 gram suspensionIndicati ons:Benign neoplasm of colon, unspecified part of colon Drink 2 liters the day before colonoscopy and 2 liters 6 hours before colonoscopy appointment 4000 mL 08/19/19 24 Active Active Problems Problem Noted Date Diagnosed [...] Resolved Date ALLERGIC RHINITIS 07/25/2006 08/19/2011 Immunizations Immunization Administration Dates Next Due Influenza, IIV3 (Age [...] Friends and Fami ly Not on file 03/18/2021 Financial Resource Strain Answer Date R ecorded Difficulty of Paying Living Expenses Not on file 03/18/2021 Difficulty of Paying Living Expenses Not on file 03/18/2021 Comments No Sex and Gender Information Value Date Recorded Sex Assigned at Not on file Legal Sex Female 5:25 AM REEL WINDER Gender Identity Not on file Sexual Orientation Not on file 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 Not on file Not on file Not on file Obstetrics History Last Filed Vital Signs Vital Sign Reading Time Taken Comments Blood Pressure 127/61 08/29/2023 8:50 AM CDT Pulse 71 08/29/2023 8:50 AM CDT Temperature 36.4 C (97.6 F) 06/21/2023 11:43 AM CDT Respiratory Rate 12 08/29/2023 8:50 AM CDT Oxygen Saturation 99% 08/29/2023 8:50 AM CDT Inhaled Oxygen Concentration - - Weight 116.3 kg (256 lb 8 oz) 03/28/2023 3:30 PM REEL WINDER shoes on Height 167.6 cm (5' 5.98) 11/30/2019 2:09 PM CD T Body Mass Index 41.42 11/30/2019 2:09 PM CDT Plan of Treatment Health Maintenance Due Date Last Done Comments Tdap 12/15/1967 Depression screening for age 12+ 1968 Hepatitis C screening for age 18-79 1974 Pneumococcal series for age 50+ (2 of 2 - PCV) 02/15/2006 02/15/2005 Zoster (shingles) series for age 50+ (1 of 2) 2006 Tetanus booster 06/27/2015 06/26/2005 Mammogram for age 45-75 08/24/2015 08/24/19 15, 04/11/2012, 02/07/2011, Additional history exists RSV vaccine for adults or (1 - Risk 60-74 years 1-dose series) 2016 Lipids for age 45-75 11/13/2018 11/13/2013, 10/07/2012, 02/25/2012, Additional history exists BMI (ht and wt on same day) for age 18+ 11/29/2020 11/30/2019 DEXA/DXA scan for age 65+ 2021 Medicare Wellness for age 65+ 2021 COVID-19 vaccine series ( season) 2023 01/06/2023, 09/27/2022, 12/26/2021, Additional history exists Influenza Vaccine (Season Ended) 2024 12/31/2011, 01/03/2011 Colonoscopy through age 75 08/28/202808/28, 08/29/2023, 08/29/2023, Additional history exists Hepatitis B series for 19+ Aged Out N o longer eligible based on patient's age to [...] adequate candidate for conscious sedation. The endoscope [id number] was passed through the anus andadvanced to [...] 7:50 AM Procedure Code(s): --- Professional --- 94440, Colonoscopy, flexible; with removalof tumor(s), polyp(s), or other lesion(s) byivory technique 00302, 59, Colonoscopy, flexible; withbiopsy, single or multiple Diagnosis Code(s): --- Professional --- Z86.010, Personal history of colonicpolyps D12.3, Benign neoplasm of transverse colon (hepatic flexure or splenic flexure) CPT copyright 2022 [employer] [place] [employer]. All rights reserved. The codes documented in this report are preliminary and upon search engine optimization analyst reviewmay be revised to meet current compliance requirements. Scope In: 8:11:54 AM Scope Withdrawal Time 0 hours 11 minutes 48 seconds Scope Out: 8:29:58 AM us Garret Cottrell MD PROCEDURE ORD Final Res ult * XR MAMMO BILAT SCREEN FFDM (08/23/2014 8:22 AM CDT) Anatomical Region Laterality Modality BREASTS, Breast Left, Breast Right Bilateral Mammography Impressions 08/23/2014 12:23 PM CDT There is no radiographic evidence for malignancy. Recommend annual mammograms. A lay language report of this examination will be provided to the patient. MAMMOGRAM ASSESSMENT: ACR 2 Benign Narrative 08/23/2014 12:23 PM CDT XR MAMMO BILAT SCREEN FFDM [G0202.0] CLINICAL HISTORY: This is an asymptomatic 58 y.o. patient. INDICATION FOR EXAM: Mammogram Screening. TECHNIQUE: CC & MLO views were obtained. This digital study was evaluated with the assistance of Computer-Aided Detection. COMPARISON FILMS: Yes 04/11/12 [facility] 02/07/11 [facility] FINDINGS: Mammographically, the breast tissue is almost entirely fat. No suspicious masses or microcalcifications. Benign appearing calcifications within both breasts and Intramammary lymph node within right breast. Procedure Note Cong Aranda DO - 08/23/2014 XR MAMMO BILAT SCREEN FFDM [G0202.0] CLINICAL HISTORY: This is an asymptomatic 58 y.o. patient. INDICATION FOR EXAM: Mammogram Screening. TECHNIQUE: CC & MLO views were obtained. This digital study was evaluatedwith the assistance of Computer-Aided Detection. COMPARISON FILMS: Yes 04/11/12 [facility] 02/07/11 [facility] FINDINGS: Mammographically, the breast tissue is almost entirely fat. Nosuspicious masses or microcalcifications. Benign appearing calcificationswithin both breasts and Intramammary lymph node within right breast. IMPRESSION: There is no radiographic evidence for malignancy. Recommendannual mammograms. A lay language report of this examination will be provided to the patient. MAMMOGRAM ASSESSMENT: ACR 2 Benign Scooter Delong MD MAMMO Final Re sult * LIPID PANEL W REFLEX MEASURED LDL (11/13/2013 10:12 AM CDT) CHOLESTEROL,TOTAL 145 100 - 199 mg/dL 11/13/2013 10:57 AM CDT [facility] TRIGLYCERIDES 68 <150 mg/dL 11/13/2013 10:57 AM CDT [facility] HDL CHOLESTEROL 42 >40 mg/dL 4 10:57 AM CDT [facility] NON-HDL CHOLESTEROL 103 <145 mg/dl 11/13/2013 10:57 AM CDT [facility] CHOL/HDL RATIO 3.45 <4.50 11/13/2013 10:57 AM CDT [facility] LDL CHOLESTEROL 89 <=130 mg/dL 11/13/2013 10:57 AM CDT [facility] PATIENT STATUS FASTING 11/13/2013 10:57 AM CDT [facility] Blood specimen (specimen) BLOOD SPECIMEN / Unknown Venipuncture / Unknown 11/13/2013 10:12 AM CDT 11/13/2013 10:12 AM CDT Scooter Delong MD CHEMISTRY Final Re sult [address] [id number], from Last 3 Months or Most Recently Relevant to Health Maintenance Insurance [facility] MR Advance Directives * Full Code (Latest Code Status on File) Date Activated Date Inactivated Comments 03/14/2010 7:15 AM 03/14/2010 1:06 PM * Full Code Date Activated Date Inactivated Comments 03/06/2010 1:01 PM 03/06/2010 10:21 PM * Full Code Date Activated Date Inactivated Comments 11/24/2009 12:33 PM 11/25/2009 2:26 AM Care Teams Clothes Separator Relationship Specialty Start Date End Date Beverly Alfonso MD [address] [place] [id number] PCP - General Family Practice 08/13/18
--- OUTSIDE RECORDS SUMMARY | 2024-08-24 13:07 | XMS_ITS | Clinical Summary ---
Author Organization [facility] Address [address] [address] Phone Care Team Providers Care Hardware Press Operator Name Role Phone Unavailable Primary Care Provider Unavailabl e Allergies Active Allergy Reactions Criticality Noted Date Comments Erythromycin Nausea Only Low 07/28/2006 Medications Continuous Glucose Email Engineer (Dexcom G6 Email Engineer) Device Use daily to monitor blood sugars. Pharmacy dispense brand based on insurance. 2 Active diclofenac (Voltaren) 1 % Gel Apply 4 g topically four times a day. 4 Active levothyroxine (Synthroid) 75 MCG tablet Take 75 mcg by mouth one time a day. 5 Active propranolol LA (Inderal LA) 60 MG 24 hour capsule Take 60 mg by mouth one time a day. Active Multiple Vitamins-Minera ls (MULTIVITAMIN ADULTS 50+ OR) Take by mouth one time a day. Multivitamin contains Vit D Active Insulin Disposable Pump (Omnipod 5 G6 Intro, Gen 5,) Kit Change pod every 72 or 48 hours, use as directed. 2 Active insulin aspart (NovoLOG) 100 UNIT/ML vial injection Inject 45-60 units daily via pump 6 Active Active Problems Problem Noted Date Diagnosed Date Class 3 obesity 08/06/2023 Left thyroid nodule 05/11/2016 Dyslipidemia 11/23/2015 Vitamin D deficiency 07/23/2010 Tubular adenoma of colon 09/15/2009 Overview (08/06/2023): Colonoscopy 09/2009 multiple polyps. Repeat 09/27 Colonoscopy 12/2013 normal repeat in 5 years Colonoscopy 07/2018 polyp, repeat in 5 years Essential (primary) hypertension 12/26/2008 Asthma 07/25/2006 Hypothyroidism 07/25/2006 Type 1 diabetes mellitus 03/18/1987 Social History Tobacco Use Types Packs/Day Years Used Date Smoking Tobacco: Former Cigarettes Smokeless Tobacco: Never Tobacco Cessation:Counseling Given: Not Answered Comments Unknown Sex and Gender Information Value Date Recorded Sex Assigned at Female 05/06/2023 3:28 PM PUMP OILER Legal Sex Female 3:25 PM PUMP OILER Gender Identity Female 08/20/2023 12:53 PM CDT Sexual Orientation Not on file Obstetrics History [...] 12/02/2023 12:24 PM CDT Plan of Treatment Health Maintenance Due Date Last Done Comments CT Colonography 1956 Cologuard 1955 Colonoscopy 1955 Colorectal Cancer Screening 1956 FIT/FOBT 1956 MAMMO,SCREEN 1956 MEDICARE AWV 1956 Sigmoidoscopy 1956 DIABETES LIPID PROFILE Q5 YEARS (Standing Order) 1974 DIABETIC EYE EXAM 1974 PERTUSSIS (Standing Order) 12/15/1975 Pneumococcal Vaccine: 50+ yrs (Standing Order) (1 of 2 - PCV) 12/15/1975 TETANUS (Standing Order) 12/15/1975 Shingrix (Zoster recombinant) vaccine (Standing Order) (1 of 2) 2006 RSV Vaccination (60+ yrs) (Abrysvo/Arexvy) (1 - Risk 60-74 years 1-dose series) 2016 DXA,FEMALES AGE 65 OR GREATER 2021 COVID-19 Vaccine ( 2023- season) 2023 01/06/2023, 09/27/2022, 12/26/2021, Additional history exists DIABETES MICROALBUMIN Q1 YEAR (Standing Order) 12/03/2023 [...] on patient's age to complete this topic Insurance [facility] MEDICARE ADVANTAGE
--- OUTSIDE RECORDS SUMMARY | 2024-08-24 13:07 | XMS_ITS | Clinical Summary ---
Author Organization [employer] Address [address] [place] [address] Care Team Providers Care Silver Solution Mixer Name Role Phone Needs Pcp, Assignment Primary Care Provider [phone] Source Comments You are receiving this document as you are listed as the primary care provider,follow-up provider, or the patient has been referred to you for consultation.This is in compliance with the Medicare and[facility] Incentive [facility],which states Providers who transition their patient to another setting of careor provider of care or refers their patient to another provider of care shouldprovide summary care record for each transition of care or referral. [employer] Allergies Active Allergy Reactions Criticality Noted Date Comments Erythromycin Nausea And Vomiting,Gastrointestinal,Nausea 07/28/2006 Medications lancets (ACCU-CHEK FASTCLIX)Indicatio ns:Controlled type 1 diabetes mellitus with diabetic neuropathy (HRC) Use 1 Each to test five times a day. 500 Each 2 07/06/19 21 Active ACCU-CHEK GUIDE test stripIndications:C ontrolled type 1 diabetes mellitus with diabetic neuropathy (HRC) Use to test 4-6 times daily 500 Strip 3 08/26/19 21 Active propranolol (INDERALLA) 60 MG 24 hour release capsule Take 1 Capsule (60 mg) by mouth. 06/16/19 22 Active Continuous Blood Gluc Coil Finisher (DEXCOM G6 DISH UP PERSON) DEVIIndications:Co ntrolled type 1 diabetes mellitus with diabetic neuropathy (HRC) Use daily to monitor blood sugars. Pharmacy dispense brand based on insurance. 1 Each 12/01/19 22 Active simvastatin (ZOCOR) 40 MG tabletIndications: Controlled type 1 diabetes mellitus with diabetic neuropathy (HRC),Essential (primary) hypertension (HRC),Left thyroid nodule (HRC),Postsurgical hypothyroidism,Dys lipidemia (HRC) Take 1 Tablet (40 mg) by mouth daily at bedtime. 90 Tablet 3 12/31/19 24 025 Active levothyroxine (SYNTHROID) 50 MCG tabletIndications: Postsurgical hypothyroidism Take 1 tab daily Sat-Sat,none on Sat, and none on Sundays 90 Tablet 3 12/31/19 Active Continuous Glucose Sensor (DEXCOM G6 SENSOR)Indications :Controlled type 1 diabetes mellitus with diabetic neuropathy (HRC) Use 1 Device to test every 10 days. Use with transmitter and chinchilla farmer 9 Each 3 12/31/19 Active Continuous Glucose Transmitter (DEXCOM G6 TRANSMITTER)Indica tions:Controlled type 1 diabetes mellitus with diabetic neuropathy (HRC) Inject 1 Each subcutaneously every 3 months. Use with sensor 1 Each 1 12/31/19 Active Insulin Disposable Pump (OMNIPOD 5 G6 PODS, GEN 5,)Indications:Con trolled type 1 diabetes mellitus with diabetic neuropathy (HRC) Change pod every 72 or 48 hours, use as directed. 45 Each 1 12/31/19 24 Active insulin aspart (NOVOLOG) 100 UNIT/ML injection (vial)Indications: Controlled type 1 diabetes mellitus with diabetic neuropathy (HRC) Inject 45-60 units daily via pump 60 mL 3 12/31/19 Active losartan-hydrochlo rothiazide (HYZAAR) 50-12.5 MG tablet Take 1 Tablet by mouth daily. 90 Tablet 3 07/01/19 25 026 Active tirzepatide-weight management (ZEPBOUND) 7.5 MG/0.5ML injection Using compound pharmacy 07/01/19 Active Active Problems Problem Noted Date Diagnosed Date Left thyroid nodule 05/11/2016 Type 1 diabetes mellitus wit h neurological manifestations, controlled 11/23/2015 Postsurgical hypothyroidism 11/23/2015 Essential (primary) hypertension 11/23/2015 Dyslipidemia 11/23/2015 Encounters Date Type Department Care Team Description 08/06/2024 Telephone [facility] [address] End[address] [place], [place] [id number] Emily Worthington MBBS Eye Exam (Mild (Stable) diabetic retinopathy OU) 07/14/2024 Orders Only HIM DEPARTMENT ProviderMeagan MD 07/03/2024 Notes/Orders [facility] [address] Endocrinology [address] [facility] [address] Emily Worthignton MBBS Postsurgical hypothyroidism (Primary Dx) 07/01/2024 E-Visit [facility] [address] [place] [address] Emily Worthington MBBS 06/30/2024 8:15 AM CDT Office Visit [facility] [address] [place] [phone] Emily Worthington MBBS Controlled type 1 diabetes mellitus with diabetic neuropathy (HRC) (Primary Dx); Postsurgical hypothyroidism; Essential (primary) hypertension (HRC); Left thyroid nodule (HRC); Dyslipidemia (HRC) 06/30/2024 7:00 AM CDT Lab Visit [facility] [address] [place] [phone] Controlled type 1 diabetes mellitus with diabetic neuropathy (HRC); Postsurgical hypothyroidism 06/23/2024 E-Visit [facility] [address] [place] [phone] Mychart, Generic Provider 06/05/2024 9:00 AM CDT [facility] Pulmonary Medicine [address] [place] [address] Mame Canada MD Sarcoidosis (Primary Dx) 06/05/2024 7:45 AM CDT - 06/05/2024 11:59 PM CDT Hospital En[facility] Pulmonary Lab [address] [place] [address] Pulmonary sarcoidosis (HRC) (Primary Dx) Discharge Disposition: Home 05/29/2024 8:00 AM CDT Ancillary Procedure [facility] [address] Scan [address] [place] [address] Mame Canada MD Sarcoidosis from Last 3 Months Immunizations Immunization Administration Dates Next Due Adult RSV Abrysvo 11/16/2022 Flu Vac (3+ yrs) 01/02/2012,01/05/2011, 4 Fluzone Qiv Multidose Vial 0 .25 (6-35 Mos) 12/24/2018,12/05/2016 [id number] 03/30/2009 Influenza (Flucelvax), Prese rv Free QIV 01/17/2016 Influenza IIV4 (Quadrivalent ) 0.5mL ([id number]) 12/20/2020,12/07/2019,12/31/2012,2009 Influenza IIV4 (Quadrivalent ) Fluad, 65+ Yrs 01/06/2023,11/16/2022 Influenza IIV4 (Quadrivalent ) Fluzone, 65+ Yrs 12/26/2021 MMR 04/18/1993 Moderna Bivalent 12+ 09/27/2022 Moderna COVID-19 12+ 01/06/2023 Moderna Monovalent 12+ 07/09/2021 PCV13 (Prevnar) 11/23/2015 PCV20 ([id number]) 01/20/2022 PPSV23 (Pneumovax) 02/15/2005 Pfizer Bivalent 12+ [...] Sign Reading Time Taken Comments Blood Pressure 167/93 06/30/2024 8:27 AM CDT Pulse 80 06/30/2024 8:27 AM CDT Temperature - - Respiratory Rate 16 02/23/2022 11:23 AM SOLAR SALES ADVISOR Oxygen Saturation 95% 06/05/2024 8:59 AM CDT Inhaled Oxygen Concentration - - Weight 107.5 kg (237 lb) 06/30/2024 8:27 AM CDT Height 167.6 cm (5' 6) 06/30/2024 8:27 AM CDT Body Mass Index 38.25 06/30/2024 8:27 AM CDT Plan of Treatment Health Maintenance Due Date Last Done Comments Colon Cancer Screening Plan Due 1955 Diabetes: Eye Exam 1955 Diabetes: Foot Exam 1955 Hep C Screening (Preventive Services) 1955 Mammogram 08/24/2015 08/23/2014 Dexa 2021 Medicare Annual Wellness Visit 03/18/2024 COVID-19 Vaccine ( season) 2024 12/12/2023, 01/06/2023, 09/27/2022, Additional history exists Diabetes: Creatinine 12/30/2024 12/31/2023, 01/02/2023, 11/21/2021, Additional history exists Diabetes: HGBA1C 12/30/2024 06/30/2024, , 07/16/2023, Additional history exists Diabetes: Urine Microalbumin 12/30/2024, 01/02/2023, 10/20/2021, Additional history exists DTaP/Tdap/Td Vaccine (2 - Tdap) 11/22/2025 11/23/2015, 06/26/2005 Diabetes: Lipid Panel 12/30/2028 12/31/2023 , 01/02/2023, 10/20/2021, Additional history exists Zoster/Shingles Vaccine Completed 12/12/19 19, 11/18/2018, 06/19/2018, Additional history exists Pneumococcal Vaccine 50+ Yrs Completed 07/2021, 11/23/2015, 02/15/2005 RSV Vaccine Completed 11/16/2022 Influenza Vaccine Completed 12/12/2023, , 11/16/2022, Additional history exists HepA Vaccine Aged Out No longer eligi ble based on patient's age to complete this topic HepB Vaccine Aged Out No longer eligi ble based on patient's age to complete this topic Hib Vaccine Aged Out No longer eligi ble based on patient's age to complete this topic IPV (Polio) Vaccine Aged Out No longe r eligible based on patient's age to complete this topic MCV4 Vaccine Aged Out No longer eligi ble based on patient's age to complete this topic Meningococcal B Vaccine Aged Out No l onger eligible based on patient's age to complete this topic Procedures Procedure Name Priority Date/Time Associated Diagnosis Comments FECAL DNA 07/14/2024 TSH, SENSITIVE Routine 06/30/2024 7:11 AM CDT Controlled type 1 diabetes mellitus with diabetic neuropathy (HRC) Postsurgical hypothyroidism HGB A1C Routine 06/30/2024 7:11 AM CDT Controlled type 1 diabetes mellitus with diabetic neuropathy (HRC) COMPLETE PULMONARY FUNCTION TEST Routine 06/04/2024 12:[address] CHEST WO IV CONT Routine 05/29/2024 7:48 AM CDT Sarcoidosis BASIC METABOLIC PANEL Routine 12/31/2023 6:51 AM CDT Controlled type 1 diabetes mellitus with diabetic neuropathy (HRC) Left thyroid nodule (HRC) Postsurgical hypothyroidism Essential (primary) hypertension (HRC) Dyslipidemia (HRC) ALBUMIN/CREAT RATIO Routine 12/31/2023 6:51 AM CDT Controlled type 1 diabetes mellitus with diabetic neuropathy (HRC) Left thyroid nodule (HRC) Postsurgical hypothyroidism Essential (primary) hypertension (HRC) Dyslipidemia (HRC) LIPID PANEL & DIRECT LDL (IF NEEDED) Routine 12/31/2023 6:51 AM CDT Controlled type 1 diabetes mellitus with diabetic neuropathy (HRC) Left thyroid nodule (HRC) Postsurgical hypothyroidism Essential (primary) hypertension (HRC) Dyslipidemia (HRC) from Last 3 Months or Most Recently Relevant to Health Maintenance Results * FECAL DNA (07/14/2024) us Interface Provider DUMMY/OTHER/AR Final Resu lt * (ABNORMAL) TSH (06/30/2024 7:11 AM CDT) TSH, Sensitive 0.06(L) 0.30 - 4.50 uIU/mL 06/30/2024 3:29 PM CDT [facility] Blood Venipuncture / Unknown 06/30/2024 7:11 AM CDT 06/30/2024 8:22 AM CDT Emily PEDROZA LAB_1 Final Res ult [facility] [address] * (ABNORMAL) Hgb A1C (06/30/2024 7:11 AM CDT) Hemoglobin A1C (Rapid) 6.0(H) <=5.6 % 06/30/2024 8:36 AM CDT [facility] Estimated Average Glucose (Calc) 126 < 117 mg/dL 06/30/2024 8:36 AM CDT [facility] Comment:Estimated average gl ucose (eAG) converts A1c into glucose units (mg/dL) and estimates average glucose over the past approximately 3 months. The eAG reference interval (<117 mg/dL) corresponds to an A1c of <5.7%. Blood Venipuncture / Unknown 06/30/2024 7:11 AM CDT 06/30/2024 8:22 AM CDT Narrative [facility] - 06/30/2024 8:36 AM CDT For patients not previously diagnosed [...] clinically, contact the lab for further direction. us Emily PEDROZA LAB_[address] [facility] [address] [place] [address], [facility] * Pulmonary Function Test - Complete (06/04/2024 12:14 PM CDT) 06/04/2024 12:1 4 PM CDT us Mame Canada MD PN PFT ORDERABLES Final Resul t Performing Organization Address City/[facility]/ZIP Co de Phone Number RONALD CRISTOBAL * CT Chest WO IV Cont (05/29/2024 7:48 AM CDT) Anatomical Region Laterality Modality Chest, Lung Computed Tomogra phy 05/29/2024 7:42 AM CDT Impressions 05/29/2024 8:38 AM CDT Overall stable lung findings compared to 02/23/2022 consistent with provided clinical history of pulmonary sarcoidosis. Calcified mediastinal and hilar lymphadenopathy is also unchanged. Narrative 05/29/2024 8:38 AM CDT COMPARISON: 02/23/2022 TECHNIQUE: Noncontrast images were obtained through the chest. FINDINGS: CHEST WALL AND LOWER NECK: Stable partially calcified left thyroid nodule. HEART AND VASCULATURE: Normal heart size. No pericardial effusion. No thoracic aortic aneurysm. Mild coronary artery calcifications. Dense mitral annulus calcification MEDIASTINUM: Unremarkable esophagus. Grossly stable partially calcified mediastinal and hilar lymphadenopathy. LUNGS AND PLEURAL SPACE: Patent central airways. Grossly stable appearance of the lungs with perihilar reticular opacities, atelectasis/consolidation in the right middle lobe and lingula, and scattered reticulonodular opacities throughout the lungs. Overall distribution and size of the pulmonary nodules is not substantially changed, for example an irregular nodule at the right lung base measuring 12 x 9 mm (series 3 image 75), previously 12 x 10 mm when measured similarly. A nodular opacity with central calcification in the anterior left upper lobe measuring 13 x 13 mm (series 3 image 22), is also stable. No pneumothorax or pleural effusion. UPPER ABDOMEN: Mild hepatic surface nodularity. Grossly stable hypoattenuating lesions in the right hepatic lobe compared to 02/23/2022 suggesting a benign etiology such as hepatic hemangioma. Partially visualized atrophic left kidney. BONES: Unremarkable. Procedure Note Josie Doe MD - 05/29/2024 COMPARISON: 02/23/2022 TECHNIQUE: Noncontrast images were obtained through the chest. FINDINGS: CHEST WALL AND LOWER NECK: Stable partially calcified left thyroidnodule. HEART AND VASCULATURE: Normal heart size. No pericardial effusion. Nothoracic aortic aneurysm. Mild coronary artery calcifications. Densemitral annulus calcification MEDIASTINUM: Unremarkable esophagus. Grossly stable partially calcifiedmediastinal and hilar lymphadenopathy. LUNGS AND PLEURAL SPACE: Patent central airways. Grossly stable appearanceof the lungs with perihilar reticular opacities, atelectasis/consolidationin the right middle lobe and lingula, and scattered reticulonodularopacities throughout the lungs. Overall distribution and size of thepulmonary nodules is not substantially changed, for example an irregularnodule at the right lung base measuring 12 x 9 mm (series 3 image 75),previously 12 x 10 mm when measured similarly. A nodular opacity withcentral calcification in the anterior left upper lobe measuring 13 x 13 mm(series 3 image 22), is also stable. No pneumothorax or pleural effusion. UPPER ABDOMEN: Mild hepatic surface nodularity. Grossly stablehypoattenuating lesions in the right hepatic lobe compared to 02/23/2022uggesting a benign etiology such as hepatic hemangioma. Partiallyvisualized atrophic left kidney. BONES: Unremarkable. IMPRESSION Overall stable lung findings compared to 02/23/2022 consistent withprovided clinical history of pulmonary sarcoidosis. Calcified mediastinaland hilar lymphadenopathy is also unchanged. us Mame Canada MD RAD CT Final Result * Lipid Panel and Direct LDL (if needed) (12/31/2023 6:51 AM CDT) [facility] Signature Cholesterol 157 0 - 199 mg/dL 12/31/2023 9:43 AM [facility] Triglyceride 88 <=149 mg/dL 12/31/2023 9:43 AM [facility] HDL Cholesterol 40 >=40 mg/dL 9:43 AM [facility] LDL, Calculated 99 <130 mg/dL 9:43 AM [facility] Non HDL Chol, Calculated 117 <=159 mg/dL 12/31/2023 9:43 AM [facility] Cholesterol/HDL Ratio 3.9 <=5.0 12/31/2023 9:43 AM [facility] Hours Fasting 12.0 8 - 12 Hours 12/31/2023 9:43 AM [facility] Blood Venipuncture / Unknown 12/31/2023 6:51 AM CDT 12/31/2023 8:03 AM CDT us Emily PEDROZA LAB_1 Final Res ult [facility] [address] [place] [address] * (ABNORMAL) BMP (12/31/2023 6:51 AM CDT) Sodium 140 136 - 145 mmol/L 12/31/2023 9:43 AM [facility] Potassium 4.3 3.5 - 5.1 mmol/L 12/31/2023 9:43 AM [facility] Chloride 105 98 - 109 mmol/L 12/31/2023 9:43 AM [facility] CO2 27 20 - 29 mmol/L 12/31/2023 9:43 AM [facility] Anion Gap 8 6 - 16 mmol/L 12/31/2023 9:43 AM [facility] Calcium 9.5 8.4 - 10.4 mg/dL 12/31/2023 9:43 AM [facility] BUN 16 7 - 26 mg/dL 12/31/2023 9:43 AM [facility] Creatinine 0.98 0.55 - 1.02 mg/dL 12/31/2023 9:43 AM [facility] Glucose 167(H) 70 - 100 mg/dL 12/31/2023 9:43 AM [facility] Comment:The given reference range is for the fasting state. Non-fasting reference range for glucose is 70 - 180 mg/dL. GFR, Estimated >60 >60 mL/min/1.7 3m2 12/31/2023 9:43 AM CDT [facility] Hours Fasting 12.0 8 - 12 Hours 12/31/2023 9:43 AM CDT [facility] Blood Venipuncture / Unknown 12/31/2023 6:51 AM CDT 12/31/2023 8:03 AM CDT Emily Worthington [facility] LAB_1 Final Res ult Performing Organization Address [facility] Co de Phone Number [facility] [address] [place] [address] * Albumin/Creatinine Ratio,Random Urine (12/31/2023 6:51 AM CDT) Albumin/Creati nine Ratio, Urine, Random 17 <30 mg/g 12/31/2023 9:30 AM T [facility] Albumin, Urine, Random 15.7 mg/L 12/31/2023 9:30 AM T [facility] Creatinine, Urine, Random 90 >20 mg/dL mg/dL 12/31/2023 9:30 AM T [facility] Urine Non-blood Collection / Unknown 12/31/2023 6:51 AM CDT 12/31/2023 8:04 AM CDT Emily Worthington [facility] LAB_1 Final Res ult Performing Organization Address City/[facility]/ZIP Co de Phone Number [facility] [address] [place] [address] from Last 3 Months or Most Recently Relevant to Health Maintenance Insurance [employer] Care Teams Silver Solution Mixer Relationship Specialty Start Date End Date Needs Pcp, Assignment [place], [place] [phone] PCP - General 03/22/23
--- OUTSIDE RECORDS SUMMARY | 2024-08-24 13:07 | XMS_ITS | Encounter Summary ---
Author Organization [employer] Address [address], [place] [address] Care Team Providers Care Physician/Ophthalmologist Name Role Phone Needs Pcp, Assignment Primary Care Provider [phone] Encounter Details Date Type Department Care Team (Late st Contact Info) Description 07/01/2024 E-Visit [facility] [address] [place] [address] Emily Worthington, MBBS [address] [place], [place] [phone] Social History Tobacco Use Types Packs/Day Years [...] on filedocumented in this encounter Care Teams Physician/Ophthalmologist Relationship Specialty Start Date End Date Needs Pcp, Assignment [place], [place] [phone] PCP - General 03/22/23 documented as of this encounter
--- OUTSIDE RECORDS SUMMARY | 2024-08-24 13:07 | XMS_ITS | Encounter Summary ---
Author Organization [employer] Address [address], [place] [address] Care Team Providers Care Trailer Truck Driver Name Role Phone Needs Pcp, Assignment Primary Care Provider [phone]- [phone] Reason for Visit * Reason Comments Eye Exam Mild (Stable) diabet ic retinopathy OU Encounter Details Date Type Department Care Team (Late st Contact Info) Description 08/06/2024 Telephone [facility] [address] Endocrinology [address] [facility] [place], [place] [phone] Emily Worthington MBBS [address] [place], [place] [phone] Eye Exam (Mild (Stable) diabetic retinopathy OU) Social History Tobacco Use Types Packs/Day Years [...] as of this encounter Nursing Notes * Keli Cazares - 08/06/2024 3:07 PM CDT Eye exam fro [facility], Mild (Stable) diabetic retinopathy OU. Copy placed in [facility] review and Report sent to HIM documented in this encounter Plan of Treatment Not on file documented as of this encounter Visit Diagnoses Not on filedocumented in this encounter Care Teams Trailer Truck Driver Relationship Specialty Start Date End Date Needs Pcp, [place] [address] PCP - General 03/22/23 documented as of this encounter
[2024-08-24 13:10] VITALS: BP 121/81; PULSE 80; RESP 16; TEMP 36.4; O2SAT 96; BMI 36.3
--- NOTE | 2024-08-24 13:57 | ED.GENADULT ---
HPI - General Adult General Chief complaint: Dizziness/Vertigo Stated complaint: dizziness/headache Time Seen by Provider: 08/24/24 13:09 History of Present Illness HPI narrative: This 68-year-old female comes in reporting vertigo symptoms on and off over the past few days. She states that it came on rather suddenly a couple days ago but yesterday did not really have any symptoms. She reports that she can minimize or eliminate vertigo by remaining still and it occurs with certain movements. She also reports a headache and states that she has chronic posterior neck pain. She did decide to go to a chiropractor 5 days ago but this did not help much with her symptoms. Related Data Home Medications ?Medication ?Instructions ?Recorded ?Confirmed insulin aspart U-100 100 unit/mL 45 - 60 unit subcut QDAY 04/17/22 08/24/24 subcutaneous solution (Novolog U-100 Insulin aspart) insulin pump cartridge,automated #1 ea 04/17/22 07/23/24 dose,BT with controller subcutaneous (Omnipod 5 G6 Intro Kit (Gen 5) subcutaneous cartridge with controller) levothyroxine 50 mcg tablet 50 mcg PO .5 days per week 04/17/22 08/24/24 simvastatin 40 mg tablet 40 mg PO QHS 04/17/22 08/24/24 losartan 50 mg-hydrochlorothiazide 1 tab PO DAILY 08/24/24 08/24/24 12.5 mg tablet Previous Rx's ?Medication ?Instructions ?Recorded propranolol 60 mg capsule,24 60 mg PO QDAY #90 caps 06/12/24 hr,extended release fluticasone propionate 50 2 spray intranasal QDAY #10 mL 06/18/24 mcg/actuation nasal spray,suspension (Flonase Allergy Relief) meclizine 25 mg tablet 25 mg PO QID #20 tabs 08/24/24 Allergies Allergy/AdvReac Type Severity Reaction Status Date / Time erythromycin base Allergy Mild Nausea Verified 08/24/24 13:18 lisinopril AdvReac Mild Cough Verified 08/24/24 13:18 Review of Systems Status of ROS: Reports: 10 or more systems reviewed and unremarkable except as noted in History and below Narrative: Constitutional: No fevers, no weight gain or loss. Eyes: No discharge. No vision changes. HENT: No congestion, no sore throat, no ear pain. Cardiovascular: No chest pain, no palpitations. Respiratory: No shortness of breath, no wheezes, no cough. Gastrointestinal: No abdominal pain, no vomiting, no diarrhea. Genitourinary: No dysuria, no hematuria. Musculoskeletal: Normal range of motion. Skin: No rashes, no pruritis. Neurological: No weakness, sensory change, speech change. Vertigo symptoms as described above. Endo/Heme/Allergies: No bruising or bleeding. No polydipsia. Pysch: no suicidality, no anxiety, no insomnia. All other systems reviewed and are negative. [facility] Medical History H/O echocardiogram (08/15/23) ?Z92.89 - Personal history of other medical treatment (ICD-10) Cough ?R05.9 - Cough, unspecified (ICD-10) Absence of kidney ?Z90.5 - Acquired absence of kidney (ICD-10) Edema ?R60.9 - Edema, unspecified (ICD-10) Thyroid nodule ?E04.1 - Nontoxic single thyroid nodule (ICD-10) Squamous cell carcinoma of skin (2016) ?C44.92 - Squamous cell carcinoma of skin, unspecified (ICD-10) Pulmonary sarcoidosis (2017) ?D86.0 - Sarcoidosis of lung (ICD-10) Polyp of colon (2013) ?K63.5 - Polyp of colon (ICD-10) Peripheral edema ?R60.9 - Edema, unspecified (ICD-10) Obesity with body mass index (BMI) of 30.0 to 39.9 ?E66.9 - Obesity, unspecified (ICD-10) Nodule of left lung (2016) ?R91.1 - Solitary pulmonary nodule (ICD-10) Hypothyroidism ?E03.9 - Hypothyroidism, unspecified (ICD-10) Hypertension ?I10 - Essential (primary) hypertension (ICD-10) Hyperlipidemia ?E78.5 - Hyperlipidemia, unspecified (ICD-10) Essential tremor ?G25.0 - Essential tremor (ICD-10) Type 1 diabetes mellitus (1986) ?E10.9 - Type 1 diabetes mellitus without complications (ICD-10) Surgical History History of colonoscopy ?Z98.890 - Other specified postprocedural states (ICD-10) Status post biopsy of kidney (2018) ?Z98.890 - Other specified postprocedural states (ICD-10) History of partial thyroidectomy (1986) ?E89.0 - Postprocedural hypothyroidism (ICD-10) History of hysterectomy (1986) ?Z90.710 - Acquired absence of both cervix and uterus (ICD-10) History of elbow surgery (1998) ?Z98.890 - Other specified postprocedural states (ICD-10) History of 2 sections (1980) ?Z98.891 - History of uterine scar from previous surgery (ICD-10) Family History Father Colon cancer Uncle Pancreatic cancer CHF (congestive heart failure) Father, Onset Age: 48 Breast cancer Aunt, Onset Age: 60 Uncle Rheumatic heart disease Father Stroke Paternal Grandmother Social History (Updated 07/23/24 @ 13:47 by Beverly Alfonso MD) Narrative: , 2 adult children, retired [employer], 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[place] [address] Non-smoker quit 2003, hx 10 pack years Social drinker 1-2/ week Exercises 5 times/week-pool exercise, What is your current living situation?: I presently have a place to live Problems where you live: no known problems In the past 12 months, utilities in danger of being shut off: no In past 12 months, lack of transportation kept you from medical appts, meetings, work, or getting things needed for daily living: no In the past 12 mos, have been you worried that your food would run out before you had money to buy more?: never true In the past 12 mos, the food you bought just didn't last and you didn't have money to buy more?: never true Smoking Status: Former smoker How often do you have a drink containing alcohol: monthly or less AUDIT-C Alcohol total score: 1 Non-prescribed substance use: denies use How often does anyone, including family, friends and others, physically hurt you: never How often does anyone, including family, friends and others, insult or talk down to you: never How often does anyone, including family, friends and others, threaten you with harm: never How often does anyone, including family, friends and others, scream or curse at you: never Exam Narrative: Exam Narrative: Constitutional: Well-developed, well-nourished, no acute distress. HEENT: Normocephalic, atraumatic. Tympanic membranes appear normal bilaterally. Neck: Normal range of motion. Nontender. Supple. Heart: Regular. No murmurs. Normal rate. Intact distal pulses. Lungs: Clear to auscultation. No chest discomfort. No wheezes, rhonchi, or rales. Abdomen: Normal bowel sounds. Nontender. No rebound tenderness. Genitalia: Deferred. Back: No midline tenderness. Normal range of motion. Extremities: Normal range of motion. No injury. Skin: Intact. No rash. Warm. No erythema or pallor. Neurologic: No altered sensation. No weakness. Alert and oriented. No facial asymmetry. Tongue is midline. [id number] is normal. No pronator drift. Engineering Laboratory Technician strength is equal bilaterally. Able to raise each leg from the bed. Psychiatric: No suicidality. No anxiety or depression. No insomnia. Nursing notes and vitals signs are reviewed. Const: Vital Signs, click to edit/add: Vital Signs - 24 hr 08/24/24 13:10 Temperature 97.5 F L Pulse Rate [Pulse Oximeter] 80 Respiratory Rate 16 Blood Pressure [Le ft Upper Arm] 121/81 Pulse Oximetry 96 Oxygen Delivery Me thod Room Air Course Vital Signs Vital signs: Initial Vital Signs Temperature 97.5 F L 08/24/24 13:10 Temperature Source Temporal Artery Scan 08/24/24 13:10 Pulse Rate 80 08/24/24 13:10 Respiratory Rate 16 08/24/24 13:10 Blood Pressure 121/81 08/24/24 13:10 Blood Pressure Mean 94 08/24/24 13:10 Blood Pressure Position Sitting 08/24/24 13:10 Pulse Oximetry 96 08/24/24 13:10 Oxygen Delivery Method Room Air 08/24/24 13:10 Vital Signs Temperature 97.5 F L 08/24/24 13:10 Pulse Rate 80 08/24/24 13:10 Respiratory Rate 16 08/24/24 13:10 Blood Pressure 121/81 08/24/24 13:10 Pulse Oximetry 96 08/24/24 13:10 Oxygen Delivery Method Room Air 08/24/24 13:10 Temperature 97.5 F L 08/24/24 13:10 Pulse Rate 80 08/24/24 13:10 Respiratory Rate 16 08/24/24 13:10 Blood Pressure 121/81 08/24/24 13:10 Pulse Oximetry 96 08/24/24 13:10 Oxygen Delivery Method Room Air 08/24/24 13:10 Medications Administered Medications: Discontinued Medications Generic Name Dose Route Start Last Admin Trade Name Tim PRN Reason Stop Dose Admin Meclizine HCl 25 mg 08/24/24 13:56 08/24/24 14:02 Meclizine Hcl 25 Mg Tablet PO 08/24/24 13:57 25 mg ONCE ONE Administration Medical Decision Making MDM Narrative Medical decision making narrative: This patient comes in with vertigo symptoms as described above. She is not showing any suspicion of a central cause for her vertigo. Her neurologic exam is normal. I did offer imaging studies none the less and she declined these. She did receive an oral dose of meclizine for symptomatic relief and I provided a prescription for the same. She seems to be quite functional and does not report any nausea. She is able to get up and ambulate normally. Additionally she is reporting chronic neck pain and tension type headaches. I did inject into the posterior aspect of her neck on either side of the nuchal ligament a mixture of Solu-Medrol 125 mg with 4 mL of 1% lidocaine. This was split equally on each side of the nuchal ligament overlying the occipital nerve. The patient tolerated this injection well. Discharge Plan Discharge Clinical Impression: Vertigo, Tension headache Patient Disposition: Home, Self-Care Condition: Stable Additional Instructions: Take medication as needed and indicated. Follow up with MD return if worsening. Prescriptions: New meclizine 25 mg tablet 25 mg PO QID Qty: 20 0RF No Action simvastatin 40 mg tablet 40 mg PO QHS Patient Comments: TAKE 1 TABLET BY MOUTH EVERYDAY AT BEDTIME (DME) Omnipod 5 G6 Intro Kit (Gen 5) Cartridge See Rx Instructions .ROUTE .MEDSUPPLY Qty: 1 Patient Comments: CHANGE POD EVERY 72 OR 48 HOURS USE DIRECTED. Rx Instructions: As directed insulin aspart U-100 [Novolog U-100 Insulin aspart] 100 unit/mL solution 45 - 60 unit subcut QDAY Patient Comments: INJECT 45 TO 60 UNITS DAILY VIA PUMP levothyroxine 50 mcg tablet 50 mcg PO .5 days per week Patient Comments: TAKE 1 TABLET DAILY MON-SAT,NONE ON SAT, AND NONE ON SUNDAYS fluticasone propionate [Flonase Allergy Relief] 50 mcg/actuation spray,suspension 2 spray intranasal QDAY Qty: 10 0RF Rx Instructions: administer into each nostril losartan-hydrochlorothiazide 50-12.5 mg tablet 1 tab PO DAILY propranolol 60 mg capsule,extended release 24 hr 60 mg PO QDAY Qty: 90 0RF Follow Up/Referrals: Beverly Alfonso MD [Primary Care Provider, Family Practice] Stand Alone Forms: [employer] Info Instructions
[2024-08-24] MEDS: MECLIZINE HCL 25 MG TABLET PO (14:02)
[2024-08-24] MEDS: METHYLPREDNISOLONE SOD SUCC 62.5 MG/ML (125) 125 MG IM (14:42)
[2024-08-24] MEDS: LIDOCAINE 1 % PF 30 ML INJECTION (14:43)
== END 2024-08-24 14:44 | disposition home or self-care (01) ==
PROVIDERS: Emergency Provider Emergency Medicine Emergency Medical Services; PCP Family Medicine
DX: G44.209 Tension-type headache, unspecified, not intractable (principal); R42 Dizziness and giddiness
CPT/HCPCS: 64405; 99283; 99284; A9270; J2003; J2919

== ENCOUNTER 2024-09-23 07:40 | Outpatient (CLI) | payer MEDICARE, SELFPAY | END 2024-09-23 07:41 | disposition home or self-care (01) | LOC: NFLDREF 09-25 12:58 | PROVIDERS: PCP Family Medicine; Referring Provider Family Medicine; Visit Provider Family Medicine | DX: E78.5 Hyperlipidemia, unspecified (principal); I10 Essential (primary) hypertension; E03.9 Hypothyroidism, unspecified; E10.9 Type 1 diabetes mellitus without complications; M81.0 Age-related osteoporosis without current pathological fracture; M85.80 Other specified disorders of bone density and structure, unspecified site; E55.9 Vitamin D deficiency, unspecified | CPT/HCPCS: 80053; 80061; 82306; 84439; 84443 ==

== ENCOUNTER 2024-11-13 08:30 | Outpatient (RCR) | payer MEDICARE, SELFPAY ==
--- NOTE | 2024-10-23 09:51 | PT.OPEX ---
PT [place] Outpatient Eval PT [facility] Outpatient Eval Start: 10/23/24 08:36 Freq: Status: Active Protocol: Document 10/23/24 08:36 NLR (Rec: 10/23/24 09:47 NLR [id number]) E-signed By Camryn Dyer DPT Physical Therapy Outpatient Evaluation Insurance Information Recert Due Date 01/21/25 Insurance Name Medicare B Insurance AARP Information/Comments Medical Diagnosis M54.2 Cervicalgia Treating Diagnosis M79.12 Myalgia neck muscles M54.2 Cervicalgia Referring MD Briana Alfonso MD Subjective Preferred Name MELANIE Subjective Melanie arrives for PT evaluation stating she woke up with neck pain a few months ago. She has replaced her pillows with no improvement. Pain isn't getting worse, but it's not getting better either. She states she doesn't really pay attention to it, it's just there. She points at R upper trapezius. Pain Comments 3-10/25, sometimes she doesn't notice it but it's never gone. Pain is achy like a pulled muscle like she lifted something too heavy (but she hasn't). She has tried ice, no real effect. Sometimes causes headache, Tylenol helps. Has not tried heat or massage . She has not noticed anything in particular making it worse. She reads for long periods of time but no noticeable changes. She denies N/T or weakness. She notices some limitations in R arm movement for activities like water aerobics. Date of Last 10/02/24 Physician Visit Current Work Status Retired Occupation For the most part retired, does work 4 hours a week at [employer] using a computer. She notes she usually sits sideways to the TV having to look to the L to see the screen. She has started turning her body to be straight on to the TV. Precautions Treatment DM Type 1, history of L frozen shoulder many years ago. Precautions/ Contraindications Therapy Limitations/ Not Limited Systems Review Objective Other/Pertinent HAND DOM: RIGHT Objective ROM: CROM Flex 40, RSB 30, LSB 30, RRot 50, LRot 50; B Shoulder Elevation WFL STRENGTH: Grossly WFL, mild R elevation weakness 4/5 POSTURE: FHON, forward rounded shoulders, L shoulder high, lumbar hyperlordosis, R LE external rotation. PALPATION: Patient exhibits tenderness to palpation at R>L levator scapulae and supinatus. SLEEP POSITION: She is a side sleeper, either side. Recently switched from a feather pillow to a MyPillow without noticeable change in neck pain. SPECIAL TESTS: - Spurlings, - Neers, - Empty Can FUNCTIONAL: Patient is able to sit indefinitely. Patient is able to stand indefinitely. Patient is able to walk indefinitely. Patient is able to go up and down stairs. GAIT: Patient is able to ambulate with modified independence using no gait aid. Patient exhibits no gait abnormalities. FLEXIBILITY: Hypoflexibility noted at R>L levator. FOOTWEAR: Patient arrives wearing Sketchers that partially does provide adequate medial arch support. She does not (barefoot) wear supportive footwear in the house. OTHER PMH: DM controlled with insulin, history of L frozen shoulder years ago, now resolved. Functional Test 10/23/24: Neck Disability Index: 9 / 50 = 18.0 % Performed & Score Assessment Assessment/ Melanie is a 68-year-old female who presents for skilled Impression PT evaluation presenting with right neck pain which is consistent with R levator spasm in the setting of FHON , TV viewage off to L and new pillow. Patient is an appropriate candidate for skilled physical therapy to target deficits described above. Skilled PT intervention is necessary to achieve goals as stated. D /C plan and criteria is for patient to achieve the goals as outlined or until max rehab potential is met. Patient was agreeable with plan of care and goals established. This evaluation is of low complexity due to the stable nature of the patient?s presentation as well as the low comorbidities and medical factors included in this evaluation. Primary Functional Pain watching TV, turning head to drive. Limitations Plan of Care Rehabilitation Good Potential Rehabilitation Patient is otherwise healthy and motivated to improve Potential Comments in order to return to prior level of function. Physical Therapy 1. Patient will be independent with home exercise Goals program as instructed, modified and progressed by physical therapist in order to be independently and actively participating in their rehabilitation and return to prior level of function. Goal to be achieved by 01/15/2025. 2. Patient will lift 8 # weight through at least 150 degrees of active shoulder flexion and abduction above head height safely and independently without compensation or significant increase in pain over 2/10 allowing for reaching and grasping objects from elevated surfaces to safely and independently allow functional activities such as lifting/reaching to kitchen cabinets to cook, lifting/reaching to dresser and closet for self cares, lifting/reaching for housework like dusting/vacuuming and window cleaning. Goal to be achieved by 01/15/2025. 3. Patient will demonstrate full cervical active range of motion without restriction or significant increase in pain greater than 2/10 to be able to safely and independently check blindspot and rotate head for safety with driving. Goal to be achieved by 01/15/2025 . Coordination/ Referral Source Communication With Treatment Plan/ Dry Needling,Electrical Stimulation,Manual Therapy, Direct Interventions Neuromuscular Re-ed,Self-Care/Home Management, Therapeutic Activities,Therapeutic Exercises Frequency/Duration 1X/week for 4-6 weeks Patient Will Be Completion of LTG(s),Skills Plateau,Independent w/HEP, Discharged From Independently Progressing Therapy Discharge Plan DC with HEP Comments Evaluation Billing Untimed Code 20 Treatment Minutes PT Eval No Charge No Complexity Low Certification Information Initial 10/23/24 Certification Date Ending Certification 01/21/25 Date Provider Signature Yes Required Provider Signature POC & Medical Necessity Shows Agreement With Physician NPI Number Write NPI# Here Physician Comment/ : Change Physician Signature Please Sign/Date Here & Date Requested
== END 2025-01-06 07:44 | disposition home or self-care (01) ==
PROVIDERS: PCP Family Medicine; Visit Provider Family Medicine
DX: M54.2 Cervicalgia (principal); Z51.89 Encounter for other specified aftercare
CPT/HCPCS: 97110; 97112; 97161

== ENCOUNTER 2025-01-20 13:00 | Outpatient (CLI) | payer MEDICARE, SELFPAY ==
--- NOTE | 2025-01-20 13:30 | CRLHL7_ITS ---
For Patients: As a result of the Century Cures Act, medical imaging exams and procedure reports are released immediately into your electronic medical record. You may view this report before your referring provider. If you have questions, please contact your health care provider. Reason for exam: Follow-up osteopenia. Current height (in): 66.0. Weight (lb): 242.0. Menopause age: 29. Ethnicity: White. 1. Have you had a previous hip or vertebral fracture? No. 2. Have you had any fractures during your adult life which did not result from significant trauma (e.g., auto accident)? No. 3. Did either of your parents have a hip fracture? Yes. 4. Do you smoke? No. 5. Have you ever taken Glucocorticoids? No. 6. Do you have rheumatoid arthritis? No. 7. Do you have secondary osteoporosis? No. 8. Do you drink 3 or more alcoholic drinks per day? No. 9. Are you being treated for osteoporosis? No. 10. Have you ever taken any of the following medications: Actonel, Evista, Fosamax, Miacalcin, Reclast, Boniva, Forteo, HRT (i.e. estrogen/hormone therapy), Protelos, Prolia, Vitamin D, Calcium, other ??? please specify. ANSWER: Yes, vitamin D. 11. Do you have any of the following medical conditions: Anorexia or bulimia, asthma or emphysema, end stage renal disease, hyperparathyroidism, any seizure disorders, cancer, inflammatory bowel diseases, hysterectomy, other ??? please specify. ANSWER: Yes, hysterectomy. 12. What was your maximum height (inches)? 67. 13. Do you perform weight bearing exercise regularly? Yes. 14. Do you regularly consume dairy products? No. 15. Do you drink caffeinated beverages? Yes. 16. At what age did your period start? 14. 17. Are you premenopausal? No. 18. How many full term pregnancies have you had? 2. 19. Have you ever missed your period for more than 6 months in a row (not including or menopause)? No. TECHNIQUE: Bone mineral density study was performed using the [employer]. FINDINGS: The results of the study expressed as bone mineral density (BMD) are as follows: Lumbar spine L1 to L4: BMD: 1.134 g/cm2. T-score: 0.8. Z-score: 2.8. Neck Left: BMD: 0.722 g/cm2. T-score: -1.1. Z-score: 0.5. Right: BMD: 0.874 g/cm2. T-score: 0.2. Z-score: 1.9. Total Left: BMD: 0.937 g/cm2. T-score: 0.0. Z-score: 1.4. Right: BMD: 1.044 g/cm2. T-score: 0.8. Z-score: 2.2. IMPRESSION: Osteopenia. *Comparison exams done prior to 08/2019 were performed on different unit, [facility]. COMPARISON: Compared with scan of 08/08/2022, the bone mineral density has decreased by 1.6 percent at the spine and decreased by 1.8 percent at the hip. FRAX 10-year Fracture Risk Major Osteoporotic Fracture: 13 percent Hip Fracture: 1.1 percent Reported Risk Factors: [place] (1Caucasian) Neck BMD=0.722, BMI=39.1, parental fracture Melanie Mccormack M.D. Body/Diagnostic Radiologist [email or web address] TRI/veronika / bM/Dictated by: Melanie Mccormack MD @ 01/21/2025 3:32:00 AM (Electronically Signed)
== END 2025-01-20 13:01 | disposition home or self-care (01) ==
LOC: RAD 13:01
PROVIDERS: PCP Family Medicine; Visit Provider Family Medicine
DX: M85.89 Other specified disorders of bone density and structure, multiple sites (principal)
CPT/HCPCS: 77080

== ENCOUNTER 2025-02-08 09:28 | Outpatient (CLI) | payer MEDICARE, SELFPAY ==
--- NOTE | 2025-02-08 09:45 | CRLHL7_ITS ---
For Patients: As a result of the Century Cures Act, medical imaging exams and procedure reports are released immediately into your electronic medical record. You may view this report before your referring provider. If you have questions, please contact your health care provider. INDICATION: BILATERAL SCREENING MAMMOGRAM, ASYMPTOMATIC 69 Y/O FEMALE COMPARISON: 12/10/2022, 11/17/2021, 09/19/2020 TECHNIQUE: Digital mammogram in CC and MLO projections including computer-aided detection (CAD) and tomosynthesis. BREAST COMPOSITION: There are scattered areas of fibroglandular density. FINDINGS: No suspicious findings. ASSESSMENT: BI-RADS 1 Negative RECOMMENDATION: Annual screening mammogram. A lay language report of this examination will be provided to the patient. Dictated by: Tri Monique MD @ 02/09/2025 09:16:36 (Electronically Signed)
== END 2025-02-08 09:29 | disposition home or self-care (01) ==
LOC: MAMMO 09:28
PROVIDERS: PCP Family Medicine; Visit Provider Family Medicine
DX: Z12.31 Encounter for screening mammogram for malignant neoplasm of breast (principal)
CPT/HCPCS: 77063; 77067